=== PATIENT | female | born 1980 | race Caucasian/White ===

== ENCOUNTER → 2019-10-21 | Outpatient (CLI) | payer BC ==
[2019-10-21 16:21] VITALS: BP 120/84; PULSE 61; RESP 16; TEMP 97.6; BMI 33.0
--- NOTE | 2019-10-21 16:55 | P.HPBAR ---
Bariatric H&P - History & Physicial H&P Date: 10/21/19 History & Physicial: Visit/CC: ry 2013 Patient initial contact: Initial weight: 120.746 kg Initial weight in pounds: 266.20 Height: 5 ft 6 in Initial BMI: 43.0 Last weight: Current weight: 92.986 kg Current weight in pounds: 205.00 Current BMI: 33.0 [place] body weight (based on NIH guidelines): 58.967 kg Excess body weight loss: 44.9% The patient is a 38 year-old F who presents for Bariatric Assessment. She reports new constipation and gas bloat in July 2019. She had bypass May 2015. She reports anxiety. She reports concern for dumping. She had seen her PCP about the pain and was dismissed. She reports clumps to light colored soft stool then to food pieces. She can only eat tuna fish and apple. She reports chronic dehydration. She drinks over 100 oz daily of water. She has change in bowel habits. She has tried stool softeners. She reports dysphagia. PLAN: 1. Recommend EGD/Colonoscopy 2. Get bariatric labs 3. Esophagram for dysphagia. Past Medical History Past Medical History: Asthma, GERD/Reflux, Osteoarthritis (OA), Sleep Apnea/CPAP/BIPAP Additional Past Medical History / Comment(s): planter faciitis, ulcer, hiatal hernia, History of Any Multi-Drug Resistant Organisms: None Reported Past Surgical History: No Surgical Hx Reported Additional Past Surgical History / Comment(s): EGD Past Anesthesia/Blood Transfusion Reactions: Blood Transfusion Reaction, Motion Sickness Additional Past Anesthesia/Blood Transfusion Reaction / Comm: headache post op Smoking Status: Never smoker - Past Family History Mother Family Medical History: Hypertension, Thyroid Disorder Surgical - Exam Vital Signs Temp Pulse Resp BP 97.6 F 61 16 120/84 10/21/19 16:16 10/21/19 16:16 10/21/19 16:16 10/21/19 16:16 Bariatric Checklist Checklist: Plan: Checklist: EGD: 1. Hiatal hernia: 2. H. Pylori: HgbA1c: Vitamin D: Smoking: Never smoker Primary care physician referral: Dr. Rolanda Ovalle Psychiatry clearance: Cardiology clearance: Sleep study: Diet journal: VTE risk score: VTE risk level: Rehab needs at discharge:
[2019-10-21 18:05] LABS: HCT 39.6 % (34.0-46.0); HGB 13.1 gm/dL (11.4-16.0); MCH 31.6 pg (25.0-35.0); MCHC 33.1 g/dL (31.0-37.0); MCV 95.5 fL (80.0-100.0); Mean Platelet Volume 8.4; Platelet Count 234 k/uL (150-450); RBC 4.15 m/uL (3.80-5.40); RDW 13.6 % (11.5-15.5); WBC 6.8 k/uL (3.8-10.6)
[2019-10-21 18:11] LABS: INR 0.9 (<1.2); Partial Thromboplastin Time 23.1 sec (22.0-30.0); Prothrombin Time 9.6 sec (9.0-12.0)
[2019-10-22 00:41] LABS: Hemoglobin A1C 5.1 % (4.0-6.0)
[2019-10-22 02:04] LABS: % Iron Saturation 29.32 (12.00-45.00); African American GFR (CKD) 129.2 (60.0-200.0); Albumin 4.3 g/dL (3.80-4.90); Albumin/Globulin Ratio 2.26 (1.60-3.17); Anion Gap 11.4 mmol/L (4.00-12.00); BUN/Creat Ratio 14.29 Ratio (12.00-20.00); Calcium 9.1 mg/dL (8.7-10.3); Carbon Dioxide 24.6 mmol/L (21.6-31.8); Chol/HDL Ratio 2.37; Globulin 1.9 g/dL (1.6-3.3); LDL Cholesterol,Calculated 82.6 mg/dL (0.0-131.0); Magnesium 1.9 mg/dL (1.5-2.4); Non-African American GFR(CKD) 111.5 (60.0-200.0); Phosphorus 3.6 mg/dL (2.4-5.1); Total Bilirubin 0.5 mg/dL (0.3-1.2); Total Protein 6.2 g/dL (6.2-8.2); VLDL Calculation 14.4 mg/dL (5.00-40.00)
[2019-10-22 02:17] LABS: Ferritin 15.4 ng/mL (10.0-291.0); Folate, Serum 22.5 ng/mL
[2019-10-22 15:08] LABS: Zinc, Serum 71 ug/dL (60-130)
[2019-10-22 15:22] LABS: Vitamin A 45 ug/dL (38-106)
[2019-10-23 07:59] LABS: Vit B1(Thiamine) 53 ug/L (38-122)
== END | disposition home or self-care (01) ==
LOC: BARWHC3 15:44
PROVIDERS: ATTEND Surgery Plastic and Reconstructive Surgery
DX: Z48.815 Encounter for surgical aftercare following surgery on the digestive system (principal); E86.0 Dehydration; F41.9 Anxiety disorder, unspecified; R14.0 Abdominal distension (gaseous); R19.4 Change in bowel habit; R13.10 Dysphagia, unspecified; Z98.84 Bariatric surgery status
CPT/HCPCS: 80053; 80061; 82306; 82525; 82607; 82728; 82746; 83036; 83540; 83550; 83735; 83970; 84100; 84134; 84255; 84425; 84443; 84590; 84630; 85027; 85610; 85730; 99211

== ENCOUNTER → 2020-01-21 | Day surgery (SDC) | payer BC ==
[2020-01-18 14:42] VITALS: BMI 32.3
[~2020-01-21] MED LIST: LACTATED RINGERS 1,000 ML IV SCH; LIDOCAINE 1% INJ 10MG/ML (20 ML MDV) ONE; MIDAZOLAM 2 MG/2 ML VIAL ONE; PROPOFOL 10 MG/ML 20 ML VIAL IV ONE; fentaNYL (PF) 50 MCG/ML 2 ML AMP ONE
[2020-01-21 08:26] VITALS: RESP 16; TEMP 97.5
--- NOTE | 2020-01-21 09:04 | P.GSHP ---
History of Present Illness H&P Date: 01/21/20 CHIEF COMPLAINT: GERD and change in bowel habits HISTORY OF PRESENT ILLNESS: The patient is a 39-year-old female who presents with gastroesophageal reflux disease and change in bowel habits. Upper and lower endoscopy were offered for further evaluation and management. PAST MEDICAL HISTORY: Please see list. PAST SURGICAL HISTORY: Please see list. MEDICATIONS: Please see list. ALLERGIES: Please see list. SOCIAL HISTORY: No illicit drug use FAMILY HISTORY: No reports of Crohn disease or ulcerative colitis. REVIEW OF ORGAN SYSTEMS: CONSTITUTIONAL: No reports of fevers or chills. PHYSICAL EXAM: VITAL SIGNS: Stable GENERAL: Well-developed pleasant in no acute distress. HEENT: No scleral icterus. Extraocular movements grossly intact. Moist buccal mucosa. NECK: Supple without lymphadenopathy. CHEST: Unlabored respirations. Equal bilateral excursions. CARDIOVASCULAR: Regular rate and rhythm. Distal 2+ pulses. ABDOMEN: Soft, nondistended. MUSCULOSKELETAL: No clubbing, cyanosis, or edema. ASSESSMENT: 1. Gastroesophageal reflux disease 2. Change in bowel habits PLAN: 1. Recommend proceeding with an upper and lower endoscopy Past Medical History Past Medical History: Asthma, GERD/Reflux, Osteoarthritis (OA), Skin Disorder Additional Past Medical History / Comment(s): planter faciitis, ulcer, hx hiatal hernia, SOB and "heart rate goes up", "abdomen is swollen and I feel pressure and have diff having a bowel movement", recurrent yeast rash, urinary urgency History of Any Multi-Drug Resistant Organisms: None Reported Past Surgical History: Bariatric Surgery Additional Past Surgical History / Comment(s): EGD, surgery to repair hiatal hernia and aretha-en-y Past Anesthesia/Blood Transfusion Reactions: Previous Problems w/ Anesthesia, Motion Sickness Additional Past Anesthesia/Blood Transfusion Reaction / Comment(s): headache post op, 'I have panic attacks before and after surgery" Smoking Status: Never smoker - Past Family History Mother Family Medical History: No Reported History Medications and Allergies Home Medications Medication Instructions Recorded Confirmed Type Multivitamins, Thera [Multivitamin] 1 tab PO DAILY 06/23/15 01/21/20 History Cholecalciferol (Vitamin D3) 50 mcg PO BID 01/18/20 01/21/20 History [Vitamin D3] Famotidine [Pepcid] 20 mg PO BID 06/08/20 06/11/20 History Allergies Allergy/AdvReac Type Severity Reaction Status Date / Time azithromycin Allergy "FELT LIKE Verified 01/21/20 08:12 [From Zithromax Z-Martinez] MY BODY WAS ALL BRUISED AND SENSITIVE" Surgical - Exam Vital Signs Temp Pulse Resp BP Pulse Ox 97.5 F L 72 16 132/78 98 01/21/20 08:24 01/21/20 08:24 01/21/20 08:24 01/21/20 08:24 01/21/20 08:24
--- NOTE | 2020-01-21 09:10 | P.PCN ---
Date of Procedure: 01/21/20 Description of Procedure: PREOPERATIVE DIAGNOSIS: Gastroesophageal reflux disease Dysphagia. Nausea with vomiting. POSTOPERATIVE DIAGNOSIS: Dysphagia. Nausea with vomiting. Gastritis with recent bleeding Gastrojejunal stricture with chronic ulcer without perforation OPERATION: Esophagogastrojejunoscopy with balloon dilatation from 15 to 20 mm. Esophagogastroduodenoscopy with cold biopsy forceps gastric pouch SURGEON: Carlita De La O MD ANESTHESIA: MAC. INDICATIONS: The patient is a 39-year-old female who presents with a history of dysphagia, gastroesophageal reflux disease including nausea and vomiting. Benefits and risks of the procedure were described. Informed consent was obtained. DESCRIPTION: The patient was brought into the endoscopy suite and laid in the left lateral decubitus position. After a timeout was confirmed, the procedure was initiated. An Olympus gastroscope was passed along the posterior oropharynx down to the distal esophagus where the squamocolumnar junction was unremarkable. The gastric pouch was entered. A gastrojejunal stricture of 15 mm was found as the adult gastroscope was 9.5 mm in size. A TabSprint balloon dilator was placed through the scope. Final insufflation up to 20 mm was performed with a total of 2 minutes. The scope was advanced up to 60 cm from the incisors into the Anna limb. The mucosa of the gastrojejunal anastomosis was intact. However chronic gastrojejunal marginal ulcer was encountered along the jejunal side of the anastomosis, 3 mm in size. Additionally, biopsies were obtained of the gastric pouch using cold forceps. No full-thickness injury was encountered. The GI tract was desufflated. The patient tolerated the procedure well. FINDINGS: Squamocolumnar junction unremarkable at 35 cm. Stricture of approximately 15 mm encountered. Chronic gastrojejunal ulceration encountered along jejunal side 3 mm Successful balloon dilatation to 20 mm. Diaphragmatic hiatus at 40 cm. Gastric pouch 5 cm. Biopsies obtained of gastric pouch. RECOMMENDATIONS: Start omeprazole of at least 4 weeks.
--- NOTE | 2020-01-21 09:22 | P.PCN ---
Date of Procedure: 01/21/20 Description of Procedure: PREOPERATIVE DIAGNOSIS: Change in bowel habits POSTOPERATIVE DIAGNOSIS: Tubular adenoma ascending colon Tubular adenoma at appendiceal orifice OPERATION: Colonoscopy to the ileocecal valve and appendiceal orifice. Colonoscopy with multiple hot snare polypectomies SURGEON: Carlita De La O MD. ANESTHESIA: MAC. INDICATIONS: The patient is an 39-year-old female who presents with change in bowel habits. Colonoscopy is offered for diagnostic evaluation. Benefits and risks were described and informed consent was obtained. DESCRIPTION OF PROCEDURE: The patient had undergone Suprep. She had been brought into the operating room and laid in the left lateral decubitus position. After adequate intravenous sedation, the rectum was examined with 2% lidocaine jelly. No external hemorrhoids were encountered. The rectal tone was within normal limits. No lesions were palpated in the rectal vault. The colon was highly tortuous including a very high splenic flexure and hepatic flexure as well as redundant sigmoid colon. Abdominal pressure was used to advance the scope. An Olympus colonoscope was advanced until the ileocecal valve and appendiceal orifice were clearly viewed. The prep was excellent. No sigmoid diverticulosis was encountered. Multiple colonic polyps were found and snare polypectomy. No evidence of focal colitis was found. Retroflexion of the scope demonstrated grade 1 internal hemorrhoids without active bleeding or inflammation. The colon was desufflated. The patient had tolerated the procedure well. Withdrawal time was over 6 minutes. FINDINGS: Aronchick preparation quality scale 1 (1-5) Internal hemorrhoids, grade 1 No external hemorrhoids No arteriovenous malformations. No sigmoid diverticulosis Highly tortuous colon including a very high splenic flexure, hepatic flexure as well as redundant sigmoid colon. Removal of 2 polyps: - Snare polypectomy at ascending colon, 7 mm tubulovillous adenoma polyp. - Snare polypectomy at appendiceal orifice, 6 mm flat villous adenoma polyp. No focal colitis. RECOMMENDATIONS: Repeat colonoscopy in 3 years, 2022 Plan - Discharge Summary New Discharge Prescriptions: New Omeprazole [PriLOSEC] 40 mg PO DAILY #30 cap Continue Multivitamins, Thera [Multivitamin (formulary)] 1 tab PO DAILY Cholecalciferol (Vitamin D3) [Vitamin D3] 50 mcg PO BID Discontinued Famotidine [Pepcid] 20 mg PO BID Discharge Medication List Multivitamins, Thera [Multivitamin (formulary)] 1 tab PO DAILY 06/23/15 [History] Cholecalciferol (Vitamin D3) [Vitamin D3] 50 mcg PO BID 01/18/20 [History] Omeprazole [PriLOSEC] 40 mg PO DAILY #30 cap 01/21/20 [Rx] [facility]Ref[place] [place] [facility] [place] [facility] Patient Instructions/Handouts: *[facility] - (Anesthesia) Endoscopy Discharge Instructions, Gastritis (DC), Colorectal Polyps (DC), Colonoscopy (DC), Upper Endoscopy (DC), Esophageal Dilation (DC) Discharge Disposition: HOME SELF-CARE
[2020-01-21 09:35] VITALS: PULSE 73
[2020-01-21 09:47] VITALS: BP 123/88
== END | disposition home or self-care (01) ==
LOC: ORWHC2ENDO 07:57
PROVIDERS: ATTEND Surgery Plastic and Reconstructive Surgery
DX: K95.89 Other complications of other bariatric procedure (principal); K56.699 Other intestinal obstruction unspecified as to partial versus complete obstruction; K28.4 Chronic or unspecified gastrojejunal ulcer with hemorrhage; K29.51 Unspecified chronic gastritis with bleeding; D12.2 Benign neoplasm of ascending colon; D12.1 Benign neoplasm of appendix; Q43.8 Other specified congenital malformations of intestine; K64.0 First degree hemorrhoids; J45.909 Unspecified asthma, uncomplicated; K21.9 Gastro-esophageal reflux disease without esophagitis; M19.90 Unspecified osteoarthritis, unspecified site; F41.9 Anxiety disorder, unspecified; K44.9 Diaphragmatic hernia without obstruction or gangrene; K59.00 Constipation, unspecified; E66.9 Obesity, unspecified; Z68.32 Body mass index [BMI] 32.0-32.9, adult; Z87.2 Personal history of diseases of the skin and subcutaneous tissue; Z87.39 Personal history of other diseases of the musculoskeletal system and connective tissue; Z87.898 Personal history of other specified conditions; Z87.19 Personal history of other diseases of the digestive system; Z87.448 Personal history of other diseases of urinary system; Z98.890 Other specified postprocedural states; Z91.89 Other specified personal risk factors, not elsewhere classified; Z79.899 Other long term (current) drug therapy; Z88.1 Allergy status to other antibiotic agents
CPT/HCPCS: 81025; 88305; 45385; 43239; 43245; J2250; J2001; J3010; J2704; C1726

== ENCOUNTER → 2020-03-02 | Outpatient (CLI) | payer BC ==
[2020-03-02 14:47] VITALS: BP 139/88; PULSE 80; RESP 16; TEMP 98.1; BMI 32.8
--- NOTE | 2020-03-02 15:04 | P.PN ---
Subjective Progress Note Date: 03/02/20 DATE OF SERVICE: 03/02/2020 CHIEF COMPLAINT: Status post gastric bypass HISTORY OF PRESENT ILLNESS: Chiquita Kennedy is a 39-year-old female who is status post Anna-en-Y gastric bypass on May 24, 2015. She is 5 years out. She reports new right upper quadrant pain. She reports change in bowel habits. She completed a lower endoscopy. She has occasional epigastric pain exacerbated with fatty foods. Her symptoms are ongoing for over 2 weeks. Her highest weight was 266 pounds for her 5-foot, 5-1/2-inch frame. [place] body weight is 149 pound. Body mass index was 43.7. Today she comes in weighing 203 pounds from 204 pounds, 1 months ago. Her lifetime weight loss is 63 pounds. Her percent excess weight loss is 54 %, lifetime. Her body mass index is now down to 33.3. PAST MEDICAL HISTORY: 1. Morbid obesity due to excess calories, BMI 43.7 2. Gastroesophageal reflux disease. 3. Osteoarthritis of the bilateral knees secondary to obesity. 4. Plantar fasciitis. 5. Osteoarthritis of the mid to lower back secondary to obesity. PAST SURGICAL HISTORY: 1. Gastric bypass. 2. Upper endoscopy. MEDICATIONS: Home Medications Medication Instructions Recorded Confirmed Calcium Citrate 250 mg PO 06/23/15 08/25/15 Cholecalciferol [Vitamin D3] 400 unit PO DAILY@1200 06/23/15 08/25/15 HYDROcodone/APAP 5-325MG [[place] 5] 1 - 2 each PO DAILY PRN 06/23/15 08/25/15 Iron 18 mg PO DAILY 06/23/15 08/25/15 Multivitamins, Thera [Multivitamin] 1 tab PO DAILY 06/23/15 08/25/15 Previous Rx's Medication Instructions Recorded Omeprazole [PriLOSEC] 40 mg PO AC-BRKFST #90 cap 03/18/15 Ergocalciferol [Vitamin D2 50,000 unit PO Q7D #12 cap 06/23/15 (DRISDOL)] ALLERGIES: Allergies Allergy/AdvReac Type Severity Reaction Status Date / Time azithromycin Allergy "FELT LIKE Verified 08/25/15 09:23 [From Zithromax Z-Martinez] MY BODY WAS ALL BRUISED AND SENSITIVE" SOCIAL HISTORY: Denies any active tobacco use. History of alcohol use. FAMILY HISTORY: Denies any esophageal or stomach cancer. She has a family history of hypertension including thyroid disorder. Separately she reports a family history of gallbladder disease. Mother with morbid obesity who had a sleeve gastrectomy. REVIEW OF SYSTEMS : CONSTITUTIONAL: Her highest weight was 266 pounds for her 5-foot, 5-1/2-inch frame. [place] body weight is 149 pound. Body mass index was 43.7. GASTROINTESTINAL: No reports of dumping syndrome or GERD. RESPIRATORY: No reports of obstructive sleep apnea. MUSCULOSKELETAL: She reports feet and finger joint pain. HEENT: Denies any troubles with vision or hearing. ENDOCRINE: No reports of diabetes or thyroid disorders. CARDIOVASCULAR: Denies any palpitations or hypertension. NEURO: Denies any headache or seizure disorders. PSYCH: Denies any depression or suicidal ideation. Has anxiety HEMATOLOGIC: Denies any easy bruising or bleeding or a personal history of deep venous thromboembolic event. SKIN: No skin cancer. No rash. PHYSICAL EXAM: VITAL SIGNS: 5 feet 5-1/2 inches, 203 pounds, Body mass index of 33.3 Vital Signs Temp 98.1 F 03/02/20 14:44 Pulse 80 03/02/20 14:44 Resp 16 03/02/20 14:44 BP 139/88 03/02/20 14:44 Pulse Ox GENERAL: Well-developed, pleasant female in no acute distress. ABDOMEN: Soft, nontender, nondistended. No palpable incisional hernias. MUSCULOSKELETAL: No clubbing, cyanosis, or edema. HEENT: No sclerae icterus. Extraocular movements grossly intact. Moist buccal mucosa. NECK: Supple without lymphadenopathy. CHEST: Nonlabored respirations with equal bilateral excursions. CARDIOVASCULAR: Regular rate and rhythm. ABDOMEN: Soft, nontender, nondistended. PSYCH: Appropriate affect. Alert and oriented to person, place and time. SKIN: Well perfused, good skin turgor NEURO: Cranial nerve II to XII grossly intact. ASSESSMENT: 1. Morbid obesity due to excess calories with BMI 43.6, initial. 2. Status post Anna-en-Y gastric bypass. 3. Osteoarthritis of the bilateral knees 4. Osteoarthritis of the lower back 5. Obstructive sleep apnea. 6. Dietary surveillance and counseling. 7. Plantar fasciitis. 8. Change in bowel habits 9. Dysphagia 10. Constipation 11. Anxiety 12. Colon adenoma, new 13. Gastrojejunal ulcer, new 14. Vitamin D deficiency, new 15. Secondary hyperparathyroidism, new 16. Right upper quadrant pain. PLAN: 1. She reports new right upper quadrant pain. Recommend ultrasound of gallbladder and HIDA of the gallbladder 2. Recommend food diary journal for food intolerance. Objective - Vital Signs Vital signs: Vital Signs Temp 98.1 F 03/02/20 14:44 Pulse 80 03/02/20 14:44 Resp 16 03/02/20 14:44 BP 139/88 03/02/20 14:44 Pulse Ox Intake & Output 03/01/20 03/02/20 03/02/20 18:59 06:59 18:59 Weight 92.079 kg
== END | disposition home or self-care (01) ==
LOC: BARWHC3 14:31
PROVIDERS: ATTEND Surgery Plastic and Reconstructive Surgery
DX: R10.11 Right upper quadrant pain (principal); R19.4 Change in bowel habit; R10.13 Epigastric pain; Z90.49 Acquired absence of other specified parts of digestive tract
CPT/HCPCS: 99211

== ENCOUNTER → 2020-03-07 | Outpatient (CLI) | payer BC ==
--- NOTE | 2020-03-07 08:41 | US ---
EXAMINATION TYPE: US gallbladder DATE OF EXAM: 03/07/2020 COMPARISON: NONE CLINICAL HISTORY: R10.11 right upper quad pain. RUQ pain, Nausea EXAM MEASUREMENTS: Liver Length: 18.4 cm Gallbladder Wall: 0.2 cm CBD: 0.2 cm Right Kidney: 12.6 x 5.9 x 5.3 cm Pancreas: wnl Liver: Appears enlarged. Gallbladder: wnl Evidence for sonographic Quigley's sign: neg CBD: wnl Right Kidney: No hydronephrosis or masses seen IMPRESSION: 1. Hepatomegaly.
== END | disposition home or self-care (01) ==
LOC: RADUSWWP 07:32
PROVIDERS: ATTEND Surgery Plastic and Reconstructive Surgery
DX: R16.0 Hepatomegaly, not elsewhere classified (principal)
CPT/HCPCS: 76705

== ENCOUNTER → 2020-03-11 | Outpatient (CLI) | payer BC ==
--- NOTE | 2020-03-14 06:27 | NM ---
EXAMINATION TYPE: NM hepatobiliary w EF DATE OF EXAM: 03/11/2020 COMPARISON: Gallbladder ultrasound March 07, 2020. HISTORY: Right upper quadrant pain per order. Symptoms of diminished appetite heartburn, reflux, naus ea and vomiting per patient. TECHNIQUE: After the intravenous administration of 5 mCi Tc 99m Mebrofenin hepatobiliary scintigraphy is performed. Immediate images post injection. FINDINGS: There is overall heterogeneous 4 accumulation of tracer by the liver. The gallbladder is visualized within 15 minutes. The small bowel activity is noted within 30 minutes. At one hour 8 ounces of ora l ensure plus is given to mimic CCK and gallbladder ejection fraction is calculated at 73 %, in the n ormal range. Therefore there is no scintigraphic evidence of cystic or common bile duct obstruction to suggest acute cholecystitis or gallbladder dyskinesia. IMPRESSION: Exam is within normal limits.
== END | disposition home or self-care (01) ==
LOC: RADNMMAIN 15:28
PROVIDERS: ATTEND Surgery Plastic and Reconstructive Surgery
DX: R10.11 Right upper quadrant pain (principal)
CPT/HCPCS: 78226; A9537

== ENCOUNTER → 2020-04-06 | Outpatient (CLI) | payer BC ==
[2020-04-06 14:21] LABS: Basophils % (A) 1 %; Eosinophils # (A) 0.1 k/uL (0-0.7); Eosinophils % (A) 2 %; HCT 37.6 % (34.0-46.0); Lymphocytes % (A) 32 %; MCV 93.7 fL (80.0-100.0); Mean Platelet Volume 7.7; Monocytes # (A) 0.4 k/uL (0-1.0); Monocytes % (A) 6 %; Neutrophils # (A) 3.6 k/uL (1.3-7.7); Neutrophils % (A) 57 %; Platelet Count 243 k/uL (150-450); RBC 4.01 m/uL (3.80-5.40); WBC 6.3 k/uL (3.8-10.6)
[2020-04-06 14:53] LABS: ALT 19 U/L (4-34); AST 36 U/L (14-36); African American GFR (CKD) >90 (>60 ml/min/1.73 sqM); Albumin 3.9 g/dL (3.5-5.0); Alkaline Phosphatase 50 U/L (38-126); Anion Gap 6 mmol/L; Blood Urea Nitrogen 13 mg/dL (7-17); Calcium 9.2 mg/dL (8.4-10.2); Carbon Dioxide 28 mmol/L (22-30); Chloride 101 mmol/L (98-107); Glucose 90 mg/dL (74-99); Non-African American GFR(CKD) >90 (>60 ml/min/1.73 sqM); Potassium 4.4 mmol/L (3.5-5.1); Sodium 135 mmol/L (137-145); Total Bilirubin 0.3 mg/dL (0.2-1.3); Total Protein 6.1 g/dL (6.3-8.2)
== END | disposition home or self-care (01) ==
LOC: LABPAT 13:04
PROVIDERS: ATTEND Surgery Plastic and Reconstructive Surgery
DX: Z01.818 Encounter for other preprocedural examination (principal)
CPT/HCPCS: 80053; 85025; 93005

== ENCOUNTER 2020-04-14 10:25 | Day surgery (SDC) | payer BC ==
[2020-04-11 12:39] VITALS: BMI 32.8
[~2020-04-14 10:25] MED LIST changes: +DEXAMETHASONE SOD PHOSPHATE 10 MG/ML 1 ML VIAL IV ONE; +HYDROmorphone 0.5 MG/0.5 ML SYRINGE IVP PRN; -LIDOCAINE 1% INJ 10MG/ML (20 ML MDV) ONE; -MIDAZOLAM 2 MG/2 ML VIAL ONE; +ONDANSETRON 4 MG/2 ML VIAL IVP ONE; -PROPOFOL 10 MG/ML 20 ML VIAL IV ONE; -fentaNYL (PF) 50 MCG/ML 2 ML AMP ONE
--- NOTE | 2020-04-14 11:05 | P.GSHP ---
History of Present Illness H&P Date: 04/14/20 CHIEF COMPLAINT: History of intra-abdominal adhesions HISTORY OF PRESENT ILLNESS: The patient is a 39-year-old female who presents with history of intra-abdominal adhesions including fatty food intolerance, right upper quadrant abdominal pain. She now presents for diagnostic laparoscopy including lysis of adhesions and possible cholecystectomy PAST MEDICAL HISTORY: Please see list. PAST SURGICAL HISTORY: Please see list. MEDICATIONS: Please see list. ALLERGIES: Please see list. SOCIAL HISTORY: No illicit drug use FAMILY HISTORY: No reports of Crohn disease or ulcerative colitis. REVIEW OF ORGAN SYSTEMS: CONSTITUTIONAL: No reports of fevers or chills. PHYSICAL EXAM: VITAL SIGNS: Stable GENERAL: Well-developed pleasant and in no acute distress. HEENT: No scleral icterus. Extraocular movements grossly intact. Moist buccal mucosa. NECK: Supple without lymphadenopathy. CHEST: Unlabored respirations. Equal bilateral excursions. CARDIOVASCULAR: Regular rate and rhythm. Distal 2+ pulses. ABDOMEN: Soft, tender along right upper quadrant MUSCULOSKELETAL: No clubbing, cyanosis, or edema. ASSESSMENT: 1. Right upper quadrant abdominal pain 2. History of abdominal surgeries. 3. Intra-abdominal adhesions. 4. Chronic cholecystitis PLAN: 1. Robotic lysis of adhesions were described including possibility of cholecystectomy. Risk of injury to the intestine, need for further surgery, and open technique. 2. DVT prophylaxis. 3. Antibiotic prophylaxis. Past Medical History Past Medical History: Asthma, GERD/Reflux, Osteoarthritis (OA), Skin Disorder Additional Past Medical History / Comment(s): planter fasciitis, ulcer, hx hiatal hernia, SOB and "heart rate goes up", "abdomen is swollen and I feel pressure and have diff having a bowel movement", recurrent yeast rash back of legs & buttocks, urinary urgency, current thrush History of Any Multi-Drug Resistant Organisms: None Reported Past Surgical History: Bariatric Surgery Additional Past Surgical History / Comment(s): EGD, surgery to repair hiatal hernia and aretha-en-y, colonoscopy Past Anesthesia/Blood Transfusion Reactions: Previous Problems w/ Anesthesia, Motion Sickness Additional Past Anesthesia/Blood Transfusion Reaction / Comment(s): headache post op, 'I have panic attacks before and after surgery" Smoking Status: Former smoker - Past Family History Mother Family Medical History: No Reported History Medications and Allergies Home Medications Medication Instructions Recorded Confirmed Type Omeprazole [PriLOSEC] 40 mg PO DAILY #30 cap 01/21/20 04/11/20 Rx Nystatin 100,000 Unit/ml Susp 4 ml PO QID 04/11/20 04/11/20 History [Mycostatin Oral Susp] Allergies Allergy/AdvReac Type Severity Reaction Status Date / Time azithromycin Allergy "FELT LIKE Verified 04/14/20 11:03 [From Zithromax Z-Martinez] MY BODY WAS ALL BRUISED AND SENSITIVE"
[2020-04-14] MEDS ORDERED: HEPARIN SODIUM,PORCINE 5,000 UNIT/ML 1 ML VIAL SQ STA (11:06)
[2020-04-14] MEDS ORDERED: SCOPOLAMINE 1.5MG/72HR PATCH TRANSDERM STA (11:06)
[2020-04-14] MEDS ORDERED: ACETAMINOPHEN TAB 500 MG TAB PO STA (11:06)
[2020-04-14] MEDS ORDERED: GABAPENTIN 300 MG CAP PO STA (11:06)
[2020-04-14] MEDS ORDERED: INDOCYANINE GREEN 25 MG VIAL IV STA (11:07)
--- NOTE | 2020-04-14 11:08 | P.HPADDEND ---
H&P Addendum H&P Addendum Date: 04/14/20 Patient presents today for diagnostic laparoscopy lysis of adhesions. She reports worsening symptoms especially of the right upper quadrant following eating fatty or greasy foods and has history of chronic cholecystitis. Robotic cholecystectomy reviewed with benefits and risks
[2020-04-14] MEDS ORDERED: LIDOCAINE 1% (10MG/ML) FOR IV START INTRADERMA ONE (11:39)
[2020-04-14] MEDS ORDERED: MIDAZOLAM 2 MG/2 ML VIAL IVP ONE (12:19)
[2020-04-14] MEDS ORDERED: HYDROmorphone (PF) 1 MG/ML ONE (12:44)
[2020-04-14] MEDS ORDERED: NEOSTIGMINE 1 MG/ML 10 ML VIAL ONE (12:44)
[2020-04-14] MEDS ORDERED: ROCURONIUM 10 MG/ML (5 ML VIAL) IV ONE (12:44)
[2020-04-14] MEDS ORDERED: KETOROLAC 15 MG/ML 1 ML VIAL ONE (12:44)
[2020-04-14] MEDS ORDERED: diphenhydrAMINE 50 MG/ML 1 ML VIAL ONE (12:44)
[2020-04-14] MEDS ORDERED: fentaNYL (PF) 50 MCG/ML 2 ML AMP ONE (12:44)
[2020-04-14] MEDS ORDERED: PROPOFOL 10 MG/ML 20 ML VIAL IV ONE (12:44)
[2020-04-14] MEDS ORDERED: SUCCINYLCHOLINE CHLORIDE 100 MG/5 ML SYR IV ONE (12:44)
[2020-04-14] MEDS ORDERED: LIDOCAINE 1% INJ 10MG/ML (20 ML MDV) ONE (12:44)
[2020-04-14] MEDS ORDERED: DEXAMETHASONE SOD PHOSPHATE 10 MG/ML 1 ML VIAL ONE (12:44)
[2020-04-14] MEDS ORDERED: GLYCOPYRROLATE 0.2 MG/ML 2 ML VIAL ONE (12:44)
[2020-04-14] MEDS ORDERED: BUPIVACAINE (PF) 0.25% 30 ML VIAL SQ ONE (13:20)
[2020-04-14 14:54] VITALS: TEMP 99
[2020-04-14 15:02] VITALS: RESP 16
[2020-04-14] MEDS ORDERED: KETOROLAC 15 MG/ML 1 ML VIAL IVP PRN (15:02)
[2020-04-14] MEDS ORDERED: diphenhydrAMINE 50 MG/ML 1 ML VIAL IVP STA (15:02)
[2020-04-14] MEDS ORDERED: DEXAMETHASONE SOD PHOSPHATE 10 MG/ML 1 ML VIAL IV STA (15:02)
--- NOTE | 2020-04-14 15:21 | P.OP ---
Date of Procedure: 04/14/20 Description of Procedure: SURGEON: SAUNDRA SMITH MD PREOPERATIVE DIAGNOSES: 1. Peritoneal adhesions with abdominal pain 2. Chronic cholecystitis 3. Right upper quadrant abdominal pain 4. Change in bowel habits 5. Generalized anxiety disorder 6. Status post gastric bypass 7. Obesity due to excess calories, BMI 33.4 POSTOPERATIVE DIAGNOSES: 1. Peritoneal adhesions with abdominal pain 2. Chronic cholecystitis 3. Right upper quadrant abdominal pain 4. Change in bowel habits 5. Generalized anxiety disorder 6. Status post gastric bypass 7. Obesity due to excess calories, BMI 33.4 8. Severe hepatomegaly with fatty liver disease OPERATION: Robotic-assisted da Homer Xi laparoscopic lysis of adhesions Robotic-assisted da Homer Xi laparoscopic cholecystectomy, multiport with FIREFLY ESTIMATED BLOOD LOSS: 5 mL. SPECIMENS REMOVED: Gallbladder. COMPLICATIONS: None. OPERATIVE FINDINGS: 1. Severe pad amenably due to fatty liver disease with intrahepatic gallbladder adding complexity to case 2. No evidence of bowel obstruction identified 3. No incisional hernias found 4. Peritoneal adhesions along the gallbladder with lysis of adhesions performed INDICATIONS: The patient is a 39-year-old female who presents with right upper quadrant including generalized abdominal pain following eating fatty foods. Clinical picture consistent with chronic cholecystitis. Robotic assisted laparoscopic approach was described. Benefits and risks of the procedure inc luding but not limited to bleeding, infection, injury to the biliary tree was described. Informed consent was obtained. DESCRIPTION OF PROCEDURE: Patient was brought to the operating room, placed in supine position. After general induction, the abdomen had been prepped and draped in standard sterile fashion. The robotic da Homer XI system was primed. After a timeout protocol was performed, the patient had been prepped and draped in standard sterile fashion. The patient was injected with indocyanine green. A 5 mm 0 degrees laparoscopic trocar entry was performed along the left upper quadrant. The abdomen insufflated to 15 mmHg pressure which was tolerated well. Diagnostic laparoscopy demonstrated no injury to bowel viscera or mesentery. The liver surface was unremarkable. Next, two 8 mm robotic ports were placed along the right upper abdomen. The camera 8-mm port was maintained along the epigastrium. Another 8 mm port was placed along the left upper abdominal wall after exchanging the 5 mm port. Please note that the ports were placed at least 10 to 15 cm away from the target anatomy of the gallbladder. The robot was docked along the left lateral abdomen. The patient was repositioned in reverse Trendelenburg position. Using a grasper for arm 3, a grasper for arm 4, including hook cautery for arm 1, the robotic system was docked and primed as described. Instruments were interchanged by the data control assistant including hook cautery, Bovie cautery and clip appliers. I had sat at the console. Adhesions were identified along with the body of the gallbladder including infundibulum. The gallbladder was intrahepatic secondary to severe fatty liver disease with hepatomegaly adding complexity to her case. Additional time of dissection of 30 minutes performed secondary to hepatomegaly. Secondary to the severity of hepatomegaly, a dome down technique was performed with release of the gallbladder fundus body and infundibulum from the hepatic fossa. The gallbladder fundus was retracted over the dome of the liver. Attention was brought to the infundibulum including cystic lymph node. Dissection was performed over the cystic lymph node at the infundibulum using hook cautery. The infundibulum was retracted laterally to expose the cystic duct away from the common bile duct. The cystic duct including the cystic artery were dissected free from its surrounding tissue. FIREFLY was used to identify the cystic artery and cystic structures. A critical view of safety was obtained. Large PLASTIC clips were used throughout the entire case. Using a clip surety bond agent, 2 clips were placed at the junction of the infundibulum and cystic duct. The cystic duct was divided between clips. Next, the cystic artery was similarly clipped and cauterized. Electro-Bovie cautery was used to remove the gallbladder from the hepatic fossa. Hemostasis was checked and found to be adequate. The robot was undocked. I re-scrubbed into the case. Using a 10 mm Endo Catch bag via the left upper quadrant incision, the specimen was removed from the abdominal cavity. All pneumoperitoneum instruments were evacuated from the abdominal cavity. The incisions were reapproximated using 4-0 Monocryl in an interrupted subcuticular fashion. Fascial defects were less than 8 mm in size. Please note along the trocar sites, local anesthetic was placed as a field block prior to insertion of all instruments. Liquid glue was applied to the skin. At the end of the procedure needle, sponge, and instrument count had been verified correct by the certified surgical tech/first assistant. The patient was transferred to postanesthesia care unit in stable condition. Plan - Discharge Summary Discharge Rx Participant: No New Discharge Prescriptions: New HYDROcodone/APAP 5-325MG [Solomon 5-325] 1 tab PO Q6HR PRN 3 Days #10 tab PRN Reason: Pain Acetaminophen Tab [Tylenol Tab] 1,000 mg PO Q6HR PRN #30 tablet No Action Omeprazole [PriLOSEC] 40 mg PO DAILY #30 cap Nystatin 100,000 Unit/ml Susp [Mycostatin Oral Susp] 4 ml PO QID Discharge Medication List Omeprazole [PriLOSEC] 40 mg PO DAILY #30 cap 01/21/20 [Rx] Nystatin 100,000 Unit/ml Susp [Mycostatin Oral Susp] 4 ml PO QID 04/11/20 [History] Acetaminophen Tab [Tylenol Tab] 1,000 mg PO Q6HR PRN #30 tablet 04/14/20 [Rx] HYDROcodone/APAP 5-325MG [Solomon 5-325] 1 tab PO Q6HR PRN 3 Days #10 tab 04/14/20 [Rx] Follow up [facility]ment(s[facility] [facility] [place] - [place]20 Patient Instructions/Handouts: Laparoscopic Cholecystectomy (DC), Low Fat Diet (GEN) Activity/Diet/Wound Care/Special Instructions: No lifting over 10 pounds in 2 weeks until Apr 28December shower. No bath tub soaks for two weeks until Apr 28 Diet as tolerated. No driving while on narcotics. Use Tylenol scheduled for the next 24-48 hours for best pain relief. Use ice along incisions for the today to prevent swelling. For today, avoid high fat foods Discharge Disposition: HOME SELF-CARE
--- NOTE | 2020-04-14 15:23 | P.PN ---
Progress Note - Text Progress Note Date: 04/14/20 Family updated over the phone regarding care. All questions of her were addressed.
[2020-04-14 15:37] VITALS: PULSE 75
[2020-04-14] MEDS ORDERED: HYDROcodone/APAP 5-325MG 1 EACH TAB PO ONE ×2 (15:40→15:46)
[2020-04-14] MEDS ORDERED: HYDROcodone/APAP 5-325MG 1 EACH TAB ONE (15:44)
[2020-04-14 15:53] VITALS: BP 126/65
== END 2020-04-14 16:16 | disposition home or self-care (01) ==
LOC: OR 10:25
PROVIDERS: ATTEND Surgery Plastic and Reconstructive Surgery
DX: K81.1 Chronic cholecystitis (principal); K66.0 Peritoneal adhesions (postprocedural) (postinfection); F41.1 Generalized anxiety disorder; Z98.84 Bariatric surgery status; E66.09 Other obesity due to excess calories; Z68.33 Body mass index [BMI] 33.0-33.9, adult; K76.0 Fatty (change of) liver, not elsewhere classified; J45.909 Unspecified asthma, uncomplicated; K21.9 Gastro-esophageal reflux disease without esophagitis; M19.90 Unspecified osteoarthritis, unspecified site; B37.2 Candidiasis of skin and nail; B37.9 Candidiasis, unspecified; M72.2 Plantar fascial fibromatosis; R39.15 Urgency of urination; Z98.890 Other specified postprocedural states; Z87.891 Personal history of nicotine dependence; Z88.1 Allergy status to other antibiotic agents; Z79.899 Other long term (current) drug therapy
CPT/HCPCS: 47562; S2900; 81025; 88304

== ENCOUNTER 2020-06-09 09:26 | Day surgery (SDC) | payer BC ==
[2020-06-07 10:59] VITALS: BMI 33.0
--- NOTE | 2020-06-09 07:08 | P.GSHP ---
History of Present Illness H&P Date: 06/09/20 CHIEF COMPLAINT: GERD HISTORY OF PRESENT ILLNESS: The patient is a 39-year-old female who presents reports gastroesophageal reflux disease. Upper endoscopy was offered for further evaluation and management. PAST MEDICAL HISTORY: Please see list. PAST SURGICAL HISTORY: Please see list. MEDICATIONS: Please see list. ALLERGIES: Please see list. SOCIAL HISTORY: No illicit drug use FAMILY HISTORY: No reports of Crohn disease or ulcerative colitis. REVIEW OF ORGAN SYSTEMS: CONSTITUTIONAL: No reports of fevers or chills. GI: Denies any blood in stools or constipation. PHYSICAL EXAM: VITAL SIGNS: Stable GENERAL: Well-developed and pleasant in no acute distress. HEENT: No scleral icterus. Extraocular movements grossly intact. Moist buccal mucosa. NECK: Supple without lymphadenopathy. CHEST: Unlabored respirations. Equal bilateral excursions. CARDIOVASCULAR: Regular rate and rhythm. Distal 2+ pulses. ABDOMEN: Soft, nondistended. MUSCULOSKELETAL: No clubbing, cyanosis, or edema. ASSESSMENT: 1. Gastroesophageal reflux disease PLAN: 1. Recommend proceeding with an upper endoscopy Past Medical History Past Medical History: Asthma, GERD/Reflux, Osteoarthritis (OA) Additional Past Medical History / Comment(s): planter fasciitis, ulcer, hx hiatal hernia, SOB and "heart rate goes up", "abdomen is swollen and I feel pressure and have diff having a bowel movement", urinary urgency, current thrush History of Any Multi-Drug Resistant Organisms: None Reported Past Surgical History: Bariatric Surgery, Cholecystectomy, Hernia Repair Additional Past Surgical History / Comment(s): EGD, surgery to repair hiatal hernia and aretha-en-y, colonoscopy. LYSIS OF ADHESIONS/LAP JACQUELINE 04/14/20 Past Anesthesia/Blood Transfusion Reactions: Previous Problems w/ Anesthesia, Motion Sickness Additional Past Anesthesia/Blood Transfusion Reaction / Comment(s): headache post op, 'I have panic attacks before and after surgery" Smoking Status: Former smoker - Past Family History Mother Family Medical History: No Reported History Medications and Allergies Home Medications Medication Instructions Recorded Confirmed Type Omeprazole [PriLOSEC] 40 mg PO DAILY #30 cap 01/21/20 06/07/20 Rx Nystatin 100,000 Unit/ml Susp 4 ml PO QID 04/11/20 06/07/20 History [Mycostatin Oral Susp] Acetaminophen Tab [Tylenol Tab] 1,000 mg PO Q6HR PRN #30 tablet 04/14/20 06/07/20 Rx Allergies Allergy/AdvReac Type Severity Reaction Status Date / Time azithromycin Allergy "FELT LIKE Verified 06/07/20 10:51 [From Zithromax Z-Martinez] MY BODY WAS ALL BRUISED AND SENSITIVE"
[~2020-06-09 09:26] MED LIST changes: -DEXAMETHASONE SOD PHOSPHATE 10 MG/ML 1 ML VIAL IV ONE; -HYDROmorphone 0.5 MG/0.5 ML SYRINGE IVP PRN; -ONDANSETRON 4 MG/2 ML VIAL IVP ONE
[2020-06-09 10:23] VITALS: TEMP 98.4
[2020-06-09] MEDS ORDERED: LACTATED RINGERS 1,000 ML IV ONE (10:23)
[2020-06-09] MEDS ORDERED: LIDOCAINE 1% (10MG/ML) FOR IV START INTRADERMA ONE (10:25)
[2020-06-09] MEDS ORDERED: PROPOFOL 10 MG/ML 20 ML VIAL IV ONE (10:57)
--- NOTE | 2020-06-09 11:14 | P.PCN ---
Date of Procedure: 06/09/20 Description of Procedure: PREOPERATIVE DIAGNOSES: 1. Epigastric abdominal pain. 2. Nausea and vomiting. 3. History of gastric bypass. 4. Gastroesophageal reflux disease 5. Dysphagia POSTOPERATIVE DIAGNOSES: 1. Gastroesophageal reflux disease with erosive esophagitis PROCEDURE PERFORMED: Esophagogastrojejunoscopy. SURGEON: Carlita De La O MD ANESTHESIA: MAC. INDICATIONS: The patient is a 39-year-old female with prior history of Anna-en-Y gastric bypass. She reports dysphagia including severe acid reflux. Upper endoscopy was offered for further evaluation and management. DESCRIPTION: Patient was brought to the endoscopy suite and laid in the left lateral decubitus position. After adequate IV sedation, a bite block was placed. An Olympus gastroscope was passed along the posterior oropharynx down to the distal esophagus where the squamocolumnar junction was found at approximately 35 cm from the incisors. Anastomosis was found at 40 cm, consistent with approximately 5 cm gastric pouch. The scope was advanced 60 cm from the incisors. No evidence of foreign body was found. No evidence of active gastrojejunal ulcerations were encountered. The GI tract was desufflated. The patient tolerated the procedure well. FINDINGS: 1. No acute gastrojejunal ulceration. 2. No foreign body found along the anastomosis. 3. LA grade C erosive esophagitis PLAN: 1. Start Carafate 1 g twice a day 2. Omeprazole 40 mg daily Plan - Discharge Summary Discharge Rx Participant: Yes New Discharge Prescriptions: New Sucralfate [Carafate] 1 gm PO BID #30 tab Continue Omeprazole [PriLOSEC] 40 mg PO DAILY #30 cap Nystatin 100,000 Unit/ml Susp [Mycostatin Oral Susp] 4 ml PO QID Acetaminophen Tab [Tylenol] 1,000 mg PO Q6HR PRN #30 tablet Discharge Medication List Omeprazole [PriLOSEC] 40 mg PO DAILY #30 cap 01/21/20 [Rx] Nystatin 100,000 Unit/ml Susp [Mycostatin Oral Susp] 4 ml PO QID 04/11/20 [History] Acetaminophen Tab [Tylenol] 1,000 mg PO Q6HR PRN #30 tablet 04/14/20 [Rx] Sucralfate [Carafate] 1 gm PO BID #30 tab 06/09/20 [Rx] Follow up Appointment(s[facility] [facility] [place] - 06/22/20 Patient Instructions/Handouts: Gastroesophageal Reflux Disease (ED) Discharge Disposition: HOME SELF-CARE
[2020-06-09 11:46] VITALS: BP 113/80; PULSE 68; RESP 18
== END 2020-06-09 11:50 | disposition home or self-care (01) ==
LOC: ORWHC2ENDO 09:26
PROVIDERS: ATTEND Surgery Plastic and Reconstructive Surgery
DX: K21.00 Gastro-esophageal reflux disease with esophagitis, without bleeding (principal); K22.10 Ulcer of esophagus without bleeding; J45.909 Unspecified asthma, uncomplicated; M19.90 Unspecified osteoarthritis, unspecified site; M72.2 Plantar fascial fibromatosis; B37.9 Candidiasis, unspecified; Z88.1 Allergy status to other antibiotic agents; Z87.19 Personal history of other diseases of the digestive system; Z87.448 Personal history of other diseases of urinary system; Z98.84 Bariatric surgery status; Z90.49 Acquired absence of other specified parts of digestive tract; Z98.890 Other specified postprocedural states; Z91.89 Other specified personal risk factors, not elsewhere classified; Z87.891 Personal history of nicotine dependence; Z79.899 Other long term (current) drug therapy; Z87.11 Personal history of peptic ulcer disease
CPT/HCPCS: 81025; 88305; 43239; J2704

== ENCOUNTER 2023-03-05 15:25 | Emergency (ER) | payer BC ==
[2023-03-05] MEDS ORDERED: LORazepam 2 MG/ML INJ IV STA (16:30)
--- NOTE | 2023-03-05 16:36 | ED ---
General Adult HPI - General Chief complaint: Chest Pain Stated complaint: chest pain Time Seen by Provider: 03/05/23 15:45 Source: patient, RN notes reviewed, old records reviewed Mode of arrival: ambulatory Limitations: no limitations - History of Present Illness Initial comments: This is a 42-year-old female presents emergency Department with multiple complaint per patient states she has quite a bit of anxiety and occasionally she'll drink, soft on. Patient states she's been sober for 7 weeks and then this week and she drink quite heavily. Patient states she also drink today. Patient states she comes in today because since last night she's been having intermittent sharp chest pain and she's not sure if it's her anxiety or if she is issues. Patient states she also has achiness throughout her body some day she feels like she can't get out of bed. Patient states she also has chronic diarrhea since she had COVID. Patient also complains of overall weakness and fatigue to the point where her is complaining because they will go out and do anything because she doesn't feel right. Patient states also anytime she eats food out how it causes her to have an ALLERGIC reaction in her face swells. Patient states he only wished reproduce she prepares herself. - Related Data Home Medications Medication Instructions Recorded Confirmed Citalopram Hydrobromide 20 mg PO HS 03/05/23 03/05/23 [Citalopram HBr] Ergocalciferol [Vitamin D2 (1250 1,250 mcg PO TU 03/05/23 03/05/23 Mcg = 14076 Iu)] hydrOXYzine HCL [Atarax] 50 mg PO TID PRN 03/05/23 03/05/23 Previous Rx's Medication Instructions Recorded Omeprazole [PriLOSEC] 40 mg PO DAILY #30 cap 01/21/20 Allergies Allergy/AdvReac Type Severity Reaction Status Date / Time azithromycin AdvReac "FELT LIKE Verified 03/05/23 17:43 [From Zithromax Z-Martinez] MY BODY WAS ALL BRUISED AND SENSITIVE" Review of Systems ROS Statement: Those systems with pertinent positive or pertinent negative responses have been documented in the HPI. ROS Other: All systems not noted in ROS Statement are negative. Past Medical History Past Medical History: Asthma, GERD/Reflux, Osteoarthritis (OA) Additional Past Medical History / Comment(s): planter fasciitis, ulcer, hx hiatal hernia, SOB and "heart rate goes up", "abdomen is swollen and I feel pressure and have diff having a bowel movement", urinary urgency, current thrush History of Any Multi-Drug Resistant Organisms: None Reported Past Surgical History: Bariatric Surgery, Cholecystectomy, Hernia Repair Additional Past Surgical History / Comment(s): EGD, surgery to repair hiatal hernia and aretha-en-y, colonoscopy. LYSIS OF ADHESIONS/LAP JACQUELINE 04/14/20 Past Anesthesia/Blood Transfusion Reactions: Previous Problems w/ Anesthesia, Motion Sickness Additional Past Anesthesia/Blood Transfusion Reaction / Comment(s): headache post op, 'I have panic attacks before and after surgery" Past Psychological History: Anxiety Smoking Status: Former smoker Past Alcohol Use History: Abuse Past Drug Use History: None Reported - Past Family History Mother Family Medical History: No Reported History General Exam - General Exam Comments Initial Comments: GENERAL: Patient is well-developed and well-nourished. Patient is nontoxic and well- hydrated and is in no acute distress. Patient is tearful throughout the interview ENT: Neck is soft and supple. No significant lymphadenopathy is noted. Oropharynx is clear. Moist mucous membranes. Neck has full range of motion without eliciting any pain. EYES: The sclera were anicteric and conjunctiva were pink and moist. Extraocular movements were intact and pupils were equal round and reactive to light. Eyelids were unremarkable. PULMONARY: Unlabored respirations. Good breath sounds bilaterally. No audible rales rhonchi or wheezing was noted. CARDIOVASCULAR: There is a regular rate and rhythm without any murmurs gallops or rubs. ABDOMEN: Soft and nontender with normal bowel sounds. SKIN: Skin is clear with no lesions or rashes and otherwise unremarkable. NEUROLOGIC: Patient is alert and oriented x3. Cranial nerves II through XII are grossly intact. Motor and sensory are also intact. Normal speech, volume and content. Symmetrical smile. MUSCULOSKELETAL: Normal extremities with adequate strength and full range of motion. LYMPHATICS: No significant lymphadenopathy is noted PSYCHIATRIC: Patient appears very anxious Limitations: no limitations Course Vital Signs 03/05/23 03/05/23 03/05/23 15:31 16:12 16:18 Temperature 98.2 F Pulse Rate 119 H 90 102 H Respiratory 22 18 18 Rate Blood Pressure 123/78 137/100 119/98 O2 Sat by Pulse 93 L 96 99 Oximetry 03/05/23 03/05/23 18:00 19:00 Temperature 98.0 F Pulse Rate 75 93 Respiratory 18 20 Rate Blood Pressure 135/74 114/84 O2 Sat by Pulse 98 95 Oximetry Medical Decision Making - Medical Decision Making EKG was interpreted by myself. EKG shows a sinus rhythm at 86 bpm W[place] interval 152 QRS 79 QT interval 340 QTC is 384. Patient's EKG shows no ST segment elevation or depression. MWas pt. sent in by a medical professional or institution (, PA, HOME CARE COORDINATOR, urgent care, hospital, or [facility]...) When possible be specific @ -No Did you speak to anyone other than the patient for history (EMS, parent, family, police, friend...)? What history was obtained from this source @ -No Did you review nursing and triage notes (agree or disagree)? Why? @ -I reviewed and agree with nursing and triage notes Were old charts reviewed (outside hosp., previous admission, EMS record, old EKG, old radiological studies, urgent care reports/EKG's, [facility] records)? Report findings @ -I reviewed prior charts per radiological studies and prior labs. Differential Diagnosis (chest pain, altered mental status, abdominal pain women, abdominal pain men, vaginal bleeding, weakness, fever, dyspnea, syncope, headache, dizziness, GI bleed, back pain, seizure, CVA, palpatations, mental health, musculoskeletal)? @ -Differential Chest Pain: Stable Angina, Unstable Angina, STEMI, NSTEMI Aortic Dissection, Pneumothorax, Musculoskeletal, Esophageal Spasm GERD, Cholecystitis, Pancreatitis, Zoster, this is not meant to be an all-inclusive list. EKG interpreted by me (3pts min.). @ -As above X-rays interpreted by me (1pt min.). @ -Chest x-ray shows no acute abnormality CT interpreted by me (1pt min.). @ -None done U/S interpreted by me (1pt. min.). @ -None done What testing was considered but not performed or refused? (CT, X-rays, U/S, labs)? Why? @ -None What meds were considered but not given or refused? Why? @ -None Did you discuss the management of the patient with other professionals (professionals i.e. , PJ, HOME CARE COORDINATOR, lab, RT, psych nurse, secondary social studies teacher, tear down matcher, teacher, custom protection officer, caseworker)? Give summary @ -No Was smoking cessation discussed for >3mins.? @ -No Was critical care preformed (if so, how long)? @ -No Were there social determinants of health that impacted care today? How? (Homelessness, low income, unemployed, alcoholism, drug addiction, transportation, low edu. Level, literacy, decrease access to med. care, senior care, rehab)? @ -No Was there de-escalation of care discussed even if they declined (Discuss DNR or withdrawal of care, Hospice)? DNR status @ -No What co-morbidities impacted this encounter? (DM, HTN, Smoking, COPD, CAD, Cancer, CVA, ARF, Chemo, Hep., AIDS, mental health diagnosis, sleep apnea, morbid obesity)? @ -None Was patient admitted / discharged? Hospital course, mention meds given and route, prescriptions, significant lab abnormalities, going to OR and other pertinent info. @ -Patient was extremely anxious and tearful when I initially talked regular 1 mg/m she rested comfortably and was sleeping when I went back in the room to give her her results. Patient was comfortable following up with her primary medical care doctor and a psychiatrist. Patient was feeling much better and she agreed that she would be following up. Undiagnosed new problem with uncertain prognosis? @ -No Drug Therapy requiring intensive monitoring for toxicity (Heparin, Nitro, Insulin, Cardizem)? @ -No Were any procedures done? @ -No Diagnosis/symptom? @ -Anxiety Acute, or Chronic, or Acute on Chronic? @ -Acute Uncomplicated (without systemic symptoms) or Complicated (systemic symptoms)? @ -Uncomplicated Side effects of treatment? @ -No Exacerbation, Progression, or Severe Exacerbation? @ -No Poses a threat to life or bodily function? How? (Chest pain, [place], [place], pneumonia, PE, COPD, DKA, ARF, appy, cholecystitis, CVA, Diverticulitis, Homicidal, Suicidal, threat to staff... and all critical care pts) @ -No Diagnosis/symptom? @ -Atypical chest pain Acute, or Chronic, or Acute on Chronic? @ -Acute Uncomplicated (without systemic symptoms) or Complicated (systemic symptoms)? @ -Uncomplicated Side effects of treatment? @ -none Exacerbation, Progression, or Severe Exacerbation] @ -no Poses a threat to life or bodily function? @ -no Diagnosis/symptom? @ -Alcohol abuse Acute, or Chronic, or Acute on Chronic? @ -Chronic Uncomplicated (without systemic symptoms) or Complicated (systemic symptoms)? @ -Complicated Side effects of treatment? @ -none Exacerbation, Progression, or Severe Exacerbation] @ -no Poses a threat to life or bodily function? @ -no Diagnosis/symptom? @ -Alcoholic hepatitis acute on chronic Acute, or Chronic, or Acute on Chronic? @ -default Uncomplicated (without systemic symptoms) or Complicated (systemic symptoms)? @ -Complicated Side effects of treatment? @ -none Exacerbation, Progression, or Severe Exacerbation] @ -no Poses a threat to life or bodily function? @ -no - Lab Data Result diagrams: 03/05/23 16:41 03/05/23 16:41 Lab Results 03/05/23 03/05/23 03/05/23 Range/Units 16:41 16:41 16:41 WBC 6.6 (3.8-10.6) k/uL RBC 4.47 (3.80-5.40) m/uL Hgb 14.5 (11.4-16.0) gm/dL Hct 43.7 (34.0-46.0) % MCV 97.7 (80.0-100.0) fL MCH 32.3 (25.0-35.0) pg MCHC 33.1 (31.0-37.0) g/dL RDW 15.6 H (11.5-15.5) % Plt Count 200 (150-450) k/uL MPV 9.0 Neutrophils % 59 % Lymphocytes % 30 % Monocytes % 6 % Eosinophils % 2 % Basophils % 0 % Neutrophils # 3.9 (1.3-7.7) k/uL Lymphocytes # 2.0 (1.0-4.8) k/uL Monocytes # 0.4 (0-1.0) k/uL Eosinophils # 0.1 (0-0.7) k/uL Basophils # 0.0 (0-0.2) k/uL PT 10.7 (9.0-12.0) sec INR 1.0 (<1.2) APTT 23.6 (22.0-30.0) sec Sodium 132 L (137-145) mmol/L Potassium 4.5 (3.5-5.1) mmol/L Chloride 97 L (98-107) mmol/L Carbon Dioxide 26 (22-30) mmol/L Anion Gap 9 mmol/L BUN 19 H (7-17) mg/dL Creatinine 0.76 (0.52-1.04) mg/dL Est GFR (CKD-EPI)AfAm >90 (>60 ml/min/1.73 sqM) Est GFR (CKD-EPI)NonAf >90 (>60 ml/min/1.73 sqM) Glucose 93 (74-99) mg/dL Calcium 8.6 (8.4-10.2) mg/dL Magnesium 2.2 (1.6-2.3) mg/dL Total Bilirubin 2.9 H (0.2-1.3) mg/dL AST 577 H (14-36) U/L ALT 219 H (4-34) U/L Alkaline Phosphatase 271 H (38-126) U/L Troponin I (0.000-0.034) ng/mL Total Protein 6.6 (6.3-8.2) g/dL Albumin 3.4 L (3.5-5.0) g/dL Serum Alcohol 143 mg/dL 03/05/23 Range/Units 16:41 WBC (3.8-10.6) k/uL RBC (3.80-5.40) m/uL Hgb (11.4-16.0) gm/dL Hct (34.0-46.0) % MCV (80.0-100.0) fL MCH (25.0-35.0) pg MCHC (31.0-37.0) g/dL RDW (11.5-15.5) % Plt Count (150-450) k/uL MPV Neutrophils % % Lymphocytes % % Monocytes % % Eosinophils % % Basophils % % Neutrophils # (1.3-7.7) k/uL Lymphocytes # (1.0-4.8) k/uL Monocytes # (0-1.0) k/uL Eosinophils # (0-0.7) k/uL Basophils # (0-0.2) k/uL PT (9.0-12.0) sec INR (<1.2) APTT (22.0-30.0) sec Sodium (137-145) mmol/L Potassium (3.5-5.1) mmol/L Chloride (98-107) mmol/L Carbon Dioxide (22-30) mmol/L Anion Gap mmol/L BUN (7-17) mg/dL Creatinine (0.52-1.04) mg/dL Est GFR (CKD-EPI)AfAm (>60 ml/min/1.73 sqM) Est GFR (CKD-EPI)NonAf (>60 ml/min/1.73 sqM) Glucose (74-99) mg/dL Calcium (8.4-10.2) mg/dL Magnesium (1.6-2.3) mg/dL Total Bilirubin (0.2-1.3) mg/dL AST (14-36) U/L ALT (4-34) U/L Alkaline Phosphatase (38-126) U/L Troponin I <0.012 (0.000-0.034) ng/mL Total Protein (6.3-8.2) g/dL Albumin (3.5-5.0) g/dL Serum Alcohol mg/dL Disposition Clinical Impression: Anxiety, Atypical chest pain, Alcohol abuse, Alcoholic hepatitis Disposition: HOME SELF-CARE Condition: Good Instructions (If sedation given, give patient instructions): Chest Pain (ED), Anxiety (ED) Is patient prescribed a controlled substance at d/c from ED?: No Referrals: Rolanda Ovalle DO [Primary Care Provider] - 1-2 days Time of Disposition: 19:53
[2023-03-05 16:54] LABS: Basophils % (A) 0 %; Eosinophils # (A) 0.1 k/uL (0-0.7); Eosinophils % (A) 2 %; HCT 43.7 % (34.0-46.0); HGB 14.5 gm/dL (11.4-16.0); Lymphocytes % (A) 30 %; MCH 32.3 pg (25.0-35.0); MCHC 33.1 g/dL (31.0-37.0); MCV 97.7 fL (80.0-100.0); Monocytes # (A) 0.4 k/uL (0-1.0); Monocytes % (A) 6 %; Neutrophils # (A) 3.9 k/uL (1.3-7.7); Neutrophils % (A) 59 %; Platelet Count 200 k/uL (150-450); RBC 4.47 m/uL (3.80-5.40); RDW 15.6 % (11.5-15.5); WBC 6.6 k/uL (3.8-10.6)
--- NOTE | 2023-03-05 17:03 | XR ---
EXAMINATION TYPE: XR chest 2V DATE OF EXAM: 03/05/2023 COMPARISON: NONE HISTORY: Chest pain TECHNIQUE: Frontal and lateral views of the chest are obtained. FINDINGS: There is no focal air space opacity. No evidence for pneumothorax. No pleural effusion. The cardiac silhouette size is within normal limits. The osseous structures are grossly intact. IMPRESSION: 1. No acute cardiopulmonary process.
[2023-03-05 17:05] LABS: Partial Thromboplastin Time 23.6 sec (22.0-30.0); Prothrombin Time 10.7 sec (9.0-12.0)
[2023-03-05 17:06] LABS: ALT 219 U/L (4-34); AST 577 U/L (14-36); African American GFR (CKD) >90 (>60 ml/min/1.73 sqM); Albumin 3.4 g/dL (3.5-5.0); Alkaline Phosphatase 271 U/L (38-126); Anion Gap 9 mmol/L; Blood Urea Nitrogen 19 mg/dL (7-17); Calcium 8.6 mg/dL (8.4-10.2); Carbon Dioxide 26 mmol/L (22-30); Chloride 97 mmol/L (98-107); Glucose 93 mg/dL (74-99); Magnesium 2.2 mg/dL (1.6-2.3); Non-African American GFR(CKD) >90 (>60 ml/min/1.73 sqM); Potassium 4.5 mmol/L (3.5-5.1); Sodium 132 mmol/L (137-145); Total Bilirubin 2.9 mg/dL (0.2-1.3); Total Protein 6.6 g/dL (6.3-8.2)
[2023-03-05 17:23] LABS: Alcohol 143 mg/dL
[2023-03-05 20:40] VITALS: BP 123/93; PULSE 75; RESP 18; TEMP 98.1
== END 2023-03-05 20:45 | disposition home or self-care (01) ==
LOC: EC 15:25
DX: F41.9 Anxiety disorder, unspecified (principal); F10.10 Alcohol abuse, uncomplicated; K70.10 Alcoholic hepatitis without ascites; R07.89 Other chest pain; J45.909 Unspecified asthma, uncomplicated; Y90.6 Blood alcohol level of 120-199 mg/100 ml; Z79.899 Other long term (current) drug therapy; Z87.891 Personal history of nicotine dependence; Z88.1 Allergy status to other antibiotic agents; Z90.49 Acquired absence of other specified parts of digestive tract; Z86.16 Personal history of COVID-19
CPT/HCPCS: 36415; 93005; 80053; 83735; 84484; 85025; 85610; 85730; 80320; 71046; 99285; 96374; J2060

== ENCOUNTER 2023-03-11 17:36 | Observation (INO) | payer BC ==
[2023-03-11 20:14] LABS: Basophils % (A) 1 %; Eosinophils # (A) 0.1 k/uL (0-0.7); Eosinophils % (A) 3 %; HCT 40.4 % (34.0-46.0); Lymphocytes % (A) 39 %; MCH 33.5 pg (25.0-35.0); MCHC 34.6 g/dL (31.0-37.0); MCV 96.8 fL (80.0-100.0); Mean Platelet Volume 8.6; Monocytes # (A) 0.2 k/uL (0-1.0); Monocytes % (A) 4 %; Neutrophils # (A) 2.7 k/uL (1.3-7.7); Neutrophils % (A) 52 %; Platelet Count 183 k/uL (150-450); RBC 4.17 m/uL (3.80-5.40); WBC 5.1 k/uL (3.8-10.6)
[2023-03-11 20:22] LABS: ALT 218 U/L (4-34); African American GFR (CKD) >90 (>60 ml/min/1.73 sqM); Albumin 3.5 g/dL (3.5-5.0); Alkaline Phosphatase 499 U/L (38-126); Anion Gap 9 mmol/L; Blood Urea Nitrogen 13 mg/dL (7-17); Calcium 8.8 mg/dL (8.4-10.2); Carbon Dioxide 26 mmol/L (22-30); Chloride 96 mmol/L (98-107); Glucose 113 mg/dL (74-99); Magnesium 1.8 mg/dL (1.6-2.3); Non-African American GFR(CKD) 87 (>60 ml/min/1.73 sqM); Partial Thromboplastin Time 22.9 sec (22.0-30.0); Prothrombin Time 10.5 sec (9.0-12.0); Sodium 131 mmol/L (137-145); Total Bilirubin 1.9 mg/dL (0.2-1.3); Total Protein 6.8 g/dL (6.3-8.2)
[2023-03-11 20:29] LABS: AST 852 U/L (14-36)
--- NOTE | 2023-03-11 20:55 | XR ---
EXAMINATION TYPE: XR chest 2V DATE OF EXAM: 03/11/2023 COMPARISON: 03/05/2023 HISTORY: 42-year-old female with chest pain and abdominal pain TECHNIQUE: PA and lateral views FINDINGS: The cardiomediastinal silhouette, aorta, and pulmonary vasculature are within normal limits. Lungs an d pleural spaces are clear. IMPRESSION: No acute cardiopulmonary process.
[2023-03-11] MEDS ORDERED: SODIUM CHLORIDE 0.9% 1,000 ML IV STA (21:56)
[2023-03-11] MEDS ORDERED: SODIUM CHLORIDE 0.9% 500 ML 500 ML IV STA (21:56)
[2023-03-11] MEDS ORDERED: LORazepam 2 MG/ML INJ IV STA (21:56)
--- NOTE | 2023-03-11 21:57 | ED ---
Weakness HPI - General Chief complaint: Chest Pain Stated complaint: Chest Pain, SOB Time Seen by Provider: 03/11/23 21:16 Source: patient, RN notes reviewed, old records reviewed Mode of arrival: ambulatory Limitations: no limitations - History of Present Illness Initial comments: This is a 6-year-old female to the emergency department for evaluation. Patient presents today for evaluation of multiple specific nonspecific symptoms. Patient has nausea vomiting abdominal pain weakness not feeling well. Patient is significantly concerned for surgical complications. Multiple different causes of severe anxiety and tremor. Patient feels like no other dressing her house and she has multiple visits including prior ER visits for similar complaints and has not had satisfactory evaluation. Patient denying fever cough congestion travel history sick contacts or any other new come complaints, no recent medication changes. Presents today MD Complaint: generalized weakness Location: generalized Severity: moderate Severity scale (1-10): 7 Quality: tingling, aching Consistency: constant Improves with: none Worsens with: none Context: recent illness, history of similar Associated Symptoms: confusion, loss of appetite, nausea/vomiting, myalgias - Related Data Home Medications Medication Instructions Recorded Confirmed hydrOXYzine HCL [Atarax] 50 mg PO TID PRN 03/05/23 03/11/23 Ferrous Sulfate [Iron (65 MG 325 mg PO DAILY 03/11/23 03/11/23 Elemental)] L.acidoph,Paracasei, B.lactis 1 cap PO DAILY 03/11/23 03/11/23 [Probiotic] Multivitamins, Thera [Multivitamin 1 tab PO DAILY 03/11/23 03/11/23 (formulary)] Previous Rx's Medication Instructions Recorded DULoxetine HCL [Cymbalta] 30 mg PO BID #60 cap 03/14/23 Omeprazole [PriLOSEC] 40 mg PO BID #60 cap 03/14/23 Thiamine [Vitamin B-1] 100 mg PO DAILY #30 tab 03/14/23 traZODone HCL 150 mg PO HS 14 Days #14 tablet 03/14/23 Allergies Allergy/AdvReac Type Severity Reaction Status Date / Time azithromycin AdvReac "FELT LIKE Verified 03/11/23 22:25 [From Zithromax Z-Martinez] MY BODY WAS ALL BRUISED AND SENSITIVE" Review of Systems ROS Statement: Those systems with pertinent positive or pertinent negative responses have been documented in the HPI. ROS Other: All systems not noted in ROS Statement are negative. Past Medical History Past Medical History: Asthma, GERD/Reflux, Osteoarthritis (OA) Additional Past Medical History / Comment(s): planter fasciitis, ulcer, hx hiatal hernia, SOB and "heart rate goes up", "abdomen is swollen and I feel pressure and have diff having a bowel movement", urinary urgency, current thrush, long COVID History of Any Multi-Drug Resistant Organisms: None Reported Past Surgical History: Bariatric Surgery, Cholecystectomy, Hernia Repair Additional Past Surgical History / Comment(s): EGD, surgery to repair hiatal hernia and aretha-en-y, colonoscopy. LYSIS OF ADHESIONS/LAP JACQUELINE 04/14/20 Past Anesthesia/Blood Transfusion Reactions: Previous Problems w/ Anesthesia, Motion Sickness Additional Past Anesthesia/Blood Transfusion Reaction / Comment(s): headache post op, 'I have panic attacks before and after surgery" Past Psychological History: Anxiety Smoking Status: Former smoker Past Alcohol Use History: Abuse Past Drug Use History: Marijuana - Past Family History Mother Family Medical History: No Reported History General Exam Limitations: no limitations General appearance: alert, in no apparent distress, anxious Head exam: Present: atraumatic, normocephalic, normal inspection Eye exam: Present: normal appearance, PERRL, EOMI. Absent: scleral icterus, conjunctival injection, periorbital swelling ENT exam: Present: normal exam, mucous membranes moist Neck exam: Present: normal inspection. Absent: tenderness, meningismus, lymphadenopathy Respiratory exam: Present: normal lung sounds bilaterally. Absent: respiratory distress, wheezes, rales, rhonchi, stridor Cardiovascular Exam: Present: normal rhythm, tachycardia, normal heart sounds. Absent: systolic murmur, diastolic murmur, rubs, gallop, clicks GI/Abdominal exam: Present: soft, normal bowel sounds. Absent: distended, te nderness, guarding, rebound, rigid Extremities exam: Present: normal inspection, full ROM, normal capillary refill. Absent: tenderness, pedal edema, joint swelling, calf tenderness Back exam: Present: normal inspection Neurological exam: Present: alert, oriented X3, CN II-XII intact Psychiatric exam: Present: normal affect, normal mood Skin exam: Present: warm, dry, intact, normal color. Absent: rash Course Vital Signs 03/11/23 03/11/23 03/11/23 17:43 21:00 21:50 Temperature 98.7 F Pulse Rate 142 H 97 87 Respiratory 24 19 Rate Blood Pressure 136/93 131/95 151/81 O2 Sat by Pulse 95 97 97 Oximetry 03/11/23 03/11/23 03/11/23 22:00 23:00 23:10 Temperature Pulse Rate 81 86 71 Respiratory 18 19 Rate Blood Pressure 151/81 127/83 118/66 O2 Sat by Pulse 98 95 Oximetry 03/12/23 03/12/23 03/12/23 02:31 07:50 11:00 Temperature Pulse Rate 80 75 81 Respiratory 16 19 18 Rate Blood Pressure 114/88 120/75 115/81 O2 Sat by Pulse 91 L 97 97 Oximetry 03/12/23 03/12/23 15:03 17:27 Temperature 97.8 F 97.4 F L Pulse Rate 85 70 Respiratory 17 16 Rate Blood Pressure 116/87 139/63 O2 Sat by Pulse 98 99 Oximetry - Reevaluation(s) Reevaluation #1: 03/11/23 23:24 Medical record is reviewed Reevaluation #2: 03/11/23 23:25 Patient has no change in symptoms here in the ER Reevaluation #3: 03/11/23 23:25 Patient informed results and questions answered Reevaluation #4: 03/11/23 21:56 Was pt. sent in by a medical professional or institution (Dr. PA, AIR INTERCEPT CONTROLLER, urgent care, hospital, or half-way...) When possible be specific @ -no Did you speak to anyone other than the patient for history (EMS, parent, family, police, friend...)? What history was obtained from this source @ -no Did you review nursing and triage notes (agree or disagree)? Why? @ -agree Are old charts reviewed (outside hosp., previous admission, EMS record, old EKG, old radiological studies, urgent care reports/EKG's, half-way records)? Report findings @ -yes Differential Diagnosis (chest pain, altered mental status, abdominal pain women, abdominal pain men, vaginal bleeding, weakness, fever, dyspnea, syncope, heada morgan, dizziness, GI bleed, back pain, seizure, CVA, palpatations, mental health, musculoskeletal)? @ -prior EKG interpreted by me (3pts min.). @ -yes X-rays interpreted by me (1pt min.). @ -no CT interpreted by me (1pt min.). @ -yes U/S interpreted by me (1pt. min.). @ -no What testing was considered but not performed or refused? (CT, X-rays, U/S, labs)? Why? @ -none What meds were considered but not given or refused? Why? @ -none Did you discuss the management of the patient with other professionals (professionals i.e. , PA, AIR INTERCEPT CONTROLLER, lab, RT, psych nurse, secondary social studies teacher, cushion sewer, teacher, protocol officer, trimming caser)? Give summary @ -no Was smoking cessation discussed for >3mins.? @ -no Was critical care preformed (if so, how long)? @ -no Were there social determinants of health that impacted care today? How? (Homelessness, low income, unemployed, alcoholism, drug addiction, braun sportation, low edu. Level, literacy, decrease access to med. care, [facility], rehab)? @ -none Was there de-escalation of care discussed even if they declined (Discuss DNR or withdrawal of care, Hospice)? DNR status @ -no What co-morbidities impacted this encounter? (DM, HTN, Smoking, COPD, CAD, Cancer, CVA, ARF, Chemo, Hep., AIDS, mental health diagnosis, sleep apnea, morbid obesity)? @ -none Was patient admitted / discharged? Hospital course, mention meds given and route, prescriptions, significant lab abnormalities, going to OR and other pertinent info. @ - 42 female to the emergency department for evaluation of multiple nonspecific symptoms. Patient states she has multiple recent ER visits without significant are satisfactory evaluation and treatment. Patient states weakness nausea vomiting abdominal pain chest pain persistent shaking has not stopped. Patient does not fill comfortable with discharge her she states her health is significantly deteriorating Admitted Undiagnosed new problem with uncertain prognosis? @ -no Drug Therapy requiring intensive monitoring for toxicity (Heparin, Nitro, Insulin, Cardizem)? @ -no Were any procedures done? @ -no Diagnosis/symptom? @ -Abdominal pain, nausea vomiting, weakness, chest pain Acute, or Chronic, or Acute on Chronic? @ -Acute Uncomplicated (without systemic symptoms) or Complicated (systemic symptoms)? @ -Complicated Side effects of treatment? @ -no Exacerbation, Progression, or Severe Exacerbation? @ -exacerbation Poses a threat to life or bodily function? How? (Chest pain, [place], [place], pneumonia, PE, COPD, DKA, ARF, appy, cholecystitis, CVA, Diverticulitis, Homicidal, Suicidal, threat to staff... and all critical care pts) @ -no - Consultations Consultation #1: Spoke with Dr. Stockton agrees to admit the patient EKG Findings - EKG Comments: EKG Findings:: EKG is sinus 98 NE 169 QRS 84 QTC 378 Medical Decision Making - Medical Decision Making 42 female to the emergency department for evaluation of multiple nonspecific symptoms. Patient states she has multiple recent ER visits without significant are satisfactory evaluation and treatment. Patient states weakness nausea vomiting abdominal pain chest pain persistent shaking has not stopped. Patient does not fill comfortable with discharge her she states her health is significantly deteriorating - Lab Data Result diagrams: 03/15/23 05:57 03/15/23 05:57 Lab Results 03/11/23 03/11/23 03/11/23 Range/Units 20:04 20:04 20:04 WBC 5.1 (3.8-10.6) k/uL RBC 4.17 (3.80-5.40) m/uL Hgb 14.0 (11.4-16.0) gm/dL Hct 40.4 (34.0-46.0) % MCV 96.8 (80.0-100.0) fL MCH 33.5 (25.0-35.0) pg MCHC 34.6 (31.0-37.0) g/dL RDW 16.0 H (11.5-15.5) % Plt Count 183 (150-450) k/uL MPV 8.6 Neutrophils % 52 % Lymphocytes % 39 % Monocytes % 4 % Eosinophils % 3 % Basophils % 1 % Neutrophils # 2.7 (1.3-7.7) k/uL Lymphocytes # 2.0 (1.0-4.8) k/uL Monocytes # 0.2 (0-1.0) k/uL Eosinophils # 0.1 (0-0.7) k/uL Basophils # 0.0 (0-0.2) k/uL PT 10.5 (9.0-12.0) sec INR 1.0 (<1.2) APTT 22.9 (22.0-30.0) sec Sodium 131 L (137-145) mmol/L Potassium 4.0 (3.5-5.1) mmol/L Chloride 96 L (98-107) mmol/L Carbon Dioxide 26 (22-30) mmol/L Anion Gap 9 mmol/L BUN 13 (7-17) mg/dL Creatinine 0.84 (0.52-1.04) mg/dL Est GFR (CKD-EPI)AfAm >90 (>60 ml/min/1.73 sqM) Est GFR (CKD-EPI)NonAf 87 (>60 ml/min/1.73 sqM) Glucose 113 H (74-99) mg/dL Calcium 8.8 (8.4-10.2) mg/dL Phosphorus (2.5-4.5) mg/dL Magnesium 1.8 (1.6-2.3) mg/dL Total Bilirubin 1.9 H (0.2-1.3) mg/dL AST 852 H (14-36) U/L ALT 218 H (4-34) U/L Alkaline Phosphatase 499 H (38-126) U/L Troponin I (0.000-0.034) ng/mL C-Reactive Protein (<1.0) mg/dL Total Protein 6.8 (6.3-8.2) g/dL Albumin 3.5 (3.5-5.0) g/dL TSH (0.465-4.680) mIU/L 03/11/23 03/11/23 Range/Units 20:04 21:55 WBC (3.8-10.6) k/uL RBC (3.80-5.40) m/uL Hgb (11.4-16.0) gm/dL Hct (34.0-46.0) % MCV (80.0-100.0) fL MCH (25.0-35.0) pg MCHC (31.0-37.0) g/dL RDW (11.5-15.5) % Plt Count (150-450) k/uL MPV Neutrophils % % Lymphocytes % % Monocytes % % Eosinophils % % Basophils % % Neutrophils # (1.3-7.7) k/uL Lymphocytes # (1.0-4.8) k/uL Monocytes # (0-1.0) k/uL Eosinophils # (0-0.7) k/uL Basophils # (0-0.2) k/uL PT (9.0-12.0) sec INR (<1.2) APTT (22.0-30.0) sec Sodium (137-145) mmol/L Potassium (3.5-5.1) mmol/L Chloride (98-107) mmol/L Carbon Dioxide (22-30) mmol/L Anion Gap mmol/L BUN (7-17) mg/dL Creatinine (0.52-1.04) mg/dL Est GFR (CKD-EPI)AfAm (>60 ml/min/1.73 sqM) Est GFR (CKD-EPI)NonAf (>60 ml/min/1.73 sqM) Glucose (74-99) mg/dL Calcium (8.4-10.2) mg/dL Phosphorus 3.0 (2.5-4.5) mg/dL Magnesium 1.8 (1.6-2.3) mg/dL Total Bilirubin (0.2-1.3) mg/dL AST (14-36) U/L ALT (4-34) U/L Alkaline Phosphatase (38-126) U/L Troponin I <0.012 (0.000-0.034) ng/mL C-Reactive Protein <0.5 (<1.0) mg/dL Total Protein (6.3-8.2) g/dL Albumin (3.5-5.0) g/dL TSH 3.440 (0.465-4.680) mIU/L - Radiology Data Radiology results: report reviewed (Chest x-ray CTA chest and CT head and pelvis negative for acute disease), image reviewed Disposition Clinical Impression: Atypical chest pain, Anxiety, Abdominal pain, Nausea & vomiting, Weakness, Transaminitis Disposition: ADMITTED IP TO THIS [facility] Is patient prescribed a controlled substance at d/c from ED?: No Time of Disposition: 23:20
[2023-03-11 22:24] LABS: C Reactive Protein <0.5 mg/dL (<1.0); Magnesium 1.8 mg/dL (1.6-2.3)
--- NOTE | 2023-03-11 22:57 | CT ---
EXAM: CT Angiography Chest With Intravenous Contrast CLINICAL HISTORY: ITS.REASON CT Reason: pain TECHNIQUE: Axial computed tomographic angiography images of the chest with intravenous contrast. CTDI is 12.3 mGy and DLP is 537.8 mGy-cm. This CT exam was performed using one or more of the following dose reduction techniques: automated exposure control, adjustment of the mA and/or kV according to patient size, and/or use of iterative reconstruction technique. MIP reconstructed images were created and reviewed. COMPARISON: No relevant prior studies available. FINDINGS: Pulmonary arteries: Unremarkable. No acute pulmonary embolism. Aorta: No acute findings. No thoracic aortic aneurysm. Lungs: Unremarkable. No mass. No consolidation. Pleural space: Unremarkable. No focal infiltrate, pleural effusion, or pneumothorax. Heart: Unremarkable. No cardiomegaly. No significant pericardial effusion. No evidence of RV dysfunction. Bones/joints: No acute fracture. No dislocation. Soft tissues: Unremarkable. Lymph nodes: Unremarkable. No enlarged lymph nodes. Liver: Severe hepatic steatosis. Stomach and bowel: Anna-en-Y gastric bypass. IMPRESSION: 1. No focal infiltrate, pleural effusion, or pneumothorax. 2. No acute pulmonary embolism. 3. Severe hepatic steatosis. 4. Anna-en-Y gastric bypass.
--- NOTE | 2023-03-11 23:13 | CT ---
EXAM: CT Abdomen and Pelvis With Intravenous Contrast CLINICAL HISTORY: ITS.REASON CT Reason: pain TECHNIQUE: Axial computed tomography images of the abdomen and pelvis with intravenous contrast. CTDI is 15 mGy and DLP is 958.8 mGy-cm. This CT exam was performed using one or more of the following dose reduction techniques: automated exposure control, adjustment of the mA and/or kV according to patient size, and/or use of iterative reconstruction technique. COMPARISON: No relevant prior studies available. FINDINGS: Lung bases: Unremarkable. No mass. No consolidation. ABDOMEN: Liver: Severe hepatic steatosis. Gallbladder and bile ducts: Cholecystectomy. No ductal dilation. Pancreas: Unremarkable. No mass. No ductal dilation. Spleen: Unremarkable. No splenomegaly. Adrenals: Unremarkable. No mass. Kidneys and ureters: Unremarkable. No solid mass. No hydronephrosis. Stomach and bowel: Anna-en-Y gastric bypass. No obstruction of the jejunojejunostomy. No mucosal thickening. PELVIS: Appendix: No findings to suggest acute appendicitis. Bladder: Unremarkable. No mass. Reproductive: Unremarkable as visualized. ABDOMEN and PELVIS: Intraperitoneal space: Unremarkable. No free air. No significant fluid collection. Bones/joints: No acute fracture. No dislocation. Soft tissues: Unremarkable. Vasculature: Unremarkable. No abdominal aortic aneurysm. Lymph nodes: Unremarkable. No enlarged lymph nodes. IMPRESSION: 1. Severe hepatic steatosis. 2. Cholecystectomy. 3. Anna-en-Y gastric bypass. No obstruction of the jejunojejunostomy.
[2023-03-11] MEDS ORDERED: ONDANSETRON 4 MG/2 ML VIAL IVP PRN (23:20)
[2023-03-11] MEDS ORDERED: NALOXONE 0.4 MG/ML 1 ML VIAL IV PRN (23:20)
[2023-03-11] MEDS ORDERED: MORPHINE SULFATE 4 MG/ML SYRINGE IV PRN (23:20)
[2023-03-11] MEDS ORDERED: LORazepam 2 MG/ML INJ IV PRN ×2 (23:22)
[2023-03-11] MEDS ORDERED: THIAMINE 100 MG/ML 2 ML VIAL IM STA (23:22)
[2023-03-12] MEDS: SODIUM CHLORIDE 0.9% 1,000 ML IV SCH ×4 (00:15→20:23)
[2023-03-12] MEDS: LORazepam 2 MG/ML INJ IV PRN ×3 (02:41→11:14)
[2023-03-12] MEDS: THIAMINE 100 MG TAB PO SCH (08:09)
[2023-03-12] MEDS ORDERED: PANTOPRAZOLE 40 MG TABLET PO SCH (10:45)
[2023-03-12] MEDS: MULTIVITAMINS, THERA 1 EACH TAB PO SCH (11:13)
[2023-03-12] MEDS: LACTOBACILLUS ACIDOPHILUS/PECT 1 EACH CAPSULE PO SCH (11:14)
[2023-03-12] MEDS ORDERED: PEG 3350 (420 GM/BTL) + LYTES 4,000 ML BOTTLE PO ONE (11:51)
--- NOTE | 2023-03-12 12:06 | P.GSCN ---
History of Present Illness Consult date: 03/12/23 History of present illness: CHIEF COMPLAINT: Abdominal pain HISTORY OF PRESENT ILLNESS: This is a 42-year-old female with a known past surgical history of a Anna-en-Y, hiatal hernia repair and cholecystectomy. Patient presents to the hospital with complaints of abdominal pain and nausea vomiting. She reports that these symptoms have been intermittent since November en she was diagnosed with Coban. Patient reports over the last few days the pain has worsened in the abdomen she reports having charley horses across the abdomen. She is vomiting almost daily. At times her will be streaks of blood noted. Also she reports occasional black stools last black stools about 3 days ago. She has been having diarrhea. She complains of abdominal bloating and left-sided abdominal pain. She reports that she's been having abdominal pain after eating also with increased bloating. Patient does have a history of alcohol abuse. Her last alcoholic beverage was on . She reports that she's been trying to cut back. He does have elevated liver enzymes and elevated total bili lab work. CT of the abdomen did show evidence of a severe fatty liver. Patient's last EGD was in May 2020 which had shown erosive esophagitis last colonoscopy in January 2028 showed colon polyps. Patient reports that she was due for colonoscopy. Denies any blood thinners or NSAID use. PAST MEDICAL HISTORY: See list. PAST SURGICAL HISTORY: See list. MEDICATIONS: See list. ALLERGIES: See list. SOCIAL HISTORY: No illicit drug use. REVIEW OF SYSTEMS: CONSTITUTIONAL: Denies fever or chills. HEENT: Denies blurred vision, vision changes, or eye pain. Denies hemoptysis ENDOCRINE: Denies heat or cold intolerance. CARDIOVASCULAR: Denies chest pain or pressure. RESPIRATORY: No shortness of breath. GASTROINTESTINAL: Please refer to HPI NEURO: Denies history of seizures. PSYCH: No depression or suicidal ideation HEMATOLOGIC: Denies bleeding disorders. LYMPHATIC: The patient denies any lumps and bumps around the neck. GENITOURINARY: Denies any blood in urine or increased urinary frequency. MUSCULOSKELETAL: Denies myalgias. Denies joint swelling. Denies decreased range of motion beyond patients baseline. SKIN: Denies pruitis. Denies rash. PHYSICAL EXAM: VITAL SIGNS: Reviewed GENERAL: Well-developed in no acute distress. HEENT: No sclera icterus. Extraocular movements grossly intact. Moist buccal mucosa. Head is atraumatic, normocephalic. Hears conversational speech. No nasal drainage. NECK: Supple without lymphadenopathy. CHEST: Non-labored respirations and equal bilateral excursions. CARDIOVASCULAR: Palpable 2+ radial pulses. ABDOMEN: Soft. Nondistended. Diffuse tenderness MUSCULOSKELETAL: No clubbing or cyanosis. NEUROLOGIC: No focal or lateralizing signs. Cranial nerves II through XII grossly intact. PSYCH: Appropriate affect. Alert and oriented to person, place and time. SKIN: Well perfused. Good skin turgor. LABORATORY DATA: WBC 5.1 Hgb 14 platelets 183 Sodium 131 potassium 4.0 creatinine 0.84 Magnesium 1.8 phosphorus 3.0 Total bili 1.9 AST 852 ALT 218 and alk phos 499 Troponins negative IMAGING: Computed tomography scan abdomen and pelvis severe hepatic steatosis. Cholecystectomy. Anna-en-Y. No obstruction of the jejunostomy CTA of the chest no acute PE ASSESSMENT: 1. Abdominal pain with nausea and vomiting 2. Episodes of black stools and emesis with streaks of blood 3. History of Anna-en-Y 4. History of erosive esophagitis 5. History of colon polyps 6. Elevated liver enzymes 7. History of alcohol abuse PLAN: -Patient scheduled for EGD and colonoscopy with Dr. De La O -Start nulightly bowel prep -Clear liquid diet today -Nothing by mouth after midnight -Continue Protonix to 40 mg IV daily -Continue IV fluids -Continue supportive care Thank you for this consultation Physician Campaign Developer note has been reviewed by physician. Signing provider agrees with the documented findings, assessment, and plan of care. Past Medical History Past Medical History: Asthma, GERD/Reflux, Osteoarthritis (OA) Additional Past Medical History / Comment(s): planter fasciitis, ulcer, hx hiatal hernia, SOB and "heart rate goes up", "abdomen is swollen and I feel pressure and have diff having a bowel movement", urinary urgency, current thrush, long COVID History of Any Multi-Drug Resistant Organisms: None Reported Past Surgical History: Bariatric Surgery, Cholecystectomy, Hernia Repair Additional Past Surgical History / Comment(s): EGD, surgery to repair hiatal hernia and anna-en-y, colonoscopy. LYSIS OF ADHESIONS/LAP JACQUELINE 04/14/20 Past Anesthesia/Blood Transfusion Reactions: Previous Problems w/ Anesthesia, Motion Sickness Additional Past Anesthesia/Blood Transfusion Reaction / Comm: headache post op, 'I have panic attacks before and after surgery" Past Psychological History: Anxiety Smoking Status: Former smoker Past Alcohol Use History: Abuse Past Drug Use History: Marijuana - Past Family History Mother Family Medical History: No Reported History Medications and Allergies Home Medications Medication Instructions Recorded Confirmed Type Omeprazole [PriLOSEC] 40 mg PO DAILY #30 cap 01/21/20 03/11/23 Rx Ergocalciferol [Vitamin D2 (1250 1,250 mcg PO TU 03/05/23 03/11/23 History Mcg = 90701 Iu)] hydrOXYzine HCL [Atarax] 50 mg PO TID PRN 03/05/23 03/11/23 History Ferrous Sulfate [Feosol] 325 mg PO DAILY 03/11/23 03/11/23 History L.acidoph,Paracasei, B.lactis 1 cap PO DAILY 03/11/23 03/11/23 History [Probiotic] Multivitamins, Thera [Multivitamin 1 tab PO DAILY 03/11/23 03/11/23 History (formulary)] Zinc Gluconate [Zinc] 50 mg PO DAILY 03/11/23 03/11/23 History Allergies Allergy/AdvReac Type Severity Reaction Status Date / Time azithromycin AdvReac "FELT LIKE Verified 03/11/23 22:25 [From Zithromax Z-Martinez] MY BODY WAS ALL BRUISED AND SENSITIVE" Surgical - Exam Vital Signs Temp Pulse Resp BP Pulse Ox 98.7 F 142 H 24 136/93 95 03/11/23 17:43 03/11/23 17:43 03/11/23 17:43 03/11/23 17:43 03/11/23 17:43 Results - Labs 03/11/23 20:04 03/11/23 20:04 Abnormal Lab Results - Last 24 Hours (Table) 03/11/23 03/11/23 Range/Units 20:04 20:04 RDW 16.0 H (11.5-15.5) % Sodium 131 L (137-145) mmol/L Chloride 96 L (98-107) mmol/L Glucose 113 H (74-99) mg/dL Total Bilirubin 1.9 H (0.2-1.3) mg/dL AST 852 H (14-36) U/L ALT 218 H (4-34) U/L Alkaline Phosphatase 499 H (38-126) U/L Diabetes panel 03/11/23 Range/Units 20:04 Sodium 131 L (137-145) mmol/L Potassium 4.0 (3.5-5.1) mmol/L Chloride 96 L (98-107) mmol/L Carbon Dioxide 26 (22-30) mmol/L BUN 13 (7-17) mg/dL Creatinine 0.84 (0.52-1.04) mg/dL Glucose 113 H (74-99) mg/dL Calcium 8.8 (8.4-10.2) mg/dL AST 852 H (14-36) U/L ALT 218 H (4-34) U/L Alkaline Phosphatase 499 H (38-126) U/L Total Protein 6.8 (6.3-8.2) g/dL Albumin 3.5 (3.5-5.0) g/dL Thyroid panel 03/11/23 Range/Units 21:55 TSH 3.440 (0.465-4.680) mIU/L Calcium panel 03/11/23 03/11/23 Range/Units 20:04 21:55 Calcium 8.8 (8.4-10.2) mg/dL Phosphorus 3.0 (2.5-4.5) mg/dL Albumin 3.5 (3.5-5.0) g/dL Pituitary panel 03/11/23 03/11/23 Range/Units 20:04 21:55 Sodium 131 L (137-145) mmol/L Potassium 4.0 (3.5-5.1) mmol/L Chloride 96 L (98-107) mmol/L Carbon Dioxide 26 (22-30) mmol/L BUN 13 (7-17) mg/dL Creatinine 0.84 (0.52-1.04) mg/dL Glucose 113 H (74-99) mg/dL Calcium 8.8 (8.4-10.2) mg/dL TSH 3.440 (0.465-4.680) mIU/L Adrenal panel 03/11/23 Range/Units 20:04 Sodium 131 L (137-145) mmol/L Potassium 4.0 (3.5-5.1) mmol/L Chloride 96 L (98-107) mmol/L Carbon Dioxide 26 (22-30) mmol/L BUN 13 (7-17) mg/dL Creatinine 0.84 (0.52-1.04) mg/dL Glucose 113 H (74-99) mg/dL Calcium 8.8 (8.4-10.2) mg/dL Total Bilirubin 1.9 H (0.2-1.3) mg/dL AST 852 H (14-36) U/L ALT 218 H (4-34) U/L Alkaline Phosphatase 499 H (38-126) U/L Total Protein 6.8 (6.3-8.2) g/dL Albumin 3.5 (3.5-5.0) g/dL
[2023-03-12] MEDS ORDERED: LACTULOSE 20 GM/30 ML CUP PO PRN (12:27)
[2023-03-12] MEDS ORDERED: MELATONIN 3 MG TABLET PO PRN (12:27)
[2023-03-12] MEDS ORDERED: CALCIUM CARBONATE 500 MG CHEWABLE PO PRN (12:27)
[2023-03-12] MEDS ORDERED: traZODone HCL 50 MG TAB PO PRN (13:38)
--- NOTE | 2023-03-12 13:40 | P.CNPUL ---
History of Present Illness Consult date: 03/12/23 Reason for consult: dyspnea History of present illness: This is a 42-year-old female patient post bariatric surgery and the patient undergone a previous Anna-en-Y gastric bypass surgery with successful weight loss. She came into the hospital because of abdominal pain and nausea and emesis. She also states that she was having black tarry stools and this has been going on for the past several days. She complained of abdominal pain and bloating. This is part of her symptoms. In fact, she has a long list of symptoms. In addition to stomach pain, she has been complaining of shortness of breath, shaking and jerking, throwing up, stool stays in her mouth, spitting up blood, chest pain, sweating, blurred vision, confusion, fatigue, episodes of passing out, feeling overall weak and tired, having difficulty with mobility and gait, balance, hard to sleep, dizzy, heart is racing and sweating. She believes that some of those symptoms started following her Covid 19 infection for which she was hospitalized and [facility] back in November 2022. She also has history of bronchial asthma. No maintenance respiratory medications or i nhalers. She has taken steroids during her Covid 19 infection and subsequently she was taken off steroids. Her hemoglobin currently is at 14. White cell count of 5.1. Sodium is at 131, creatinine 0.8, bilirubin is at 1.9 with an AST of 852 ALT of 218 and alkaline phosphatase of 499. Troponins are negative. The CRP is less than 0.5. TSH is 3.4. Normal coagulation profile. Normal white cell count of 5.1. CAT scan of the chest is essentially within normal limits. CAT scan of the abdomen and pelvis showing severe hepatic steatosis, previous cholecystectomy and Anna-en-Y gastric bypass surgery. Otherwise no acute abnormalities noted. Review of Systems review of system was done and the positive findings were mentioned above history of present illness Past Medical History Past Medical History: Asthma, GERD/Reflux, Osteoarthritis (OA) Additional Past Medical History / Comment(s): planter fasciitis, ulcer, hx hiatal hernia, SOB and "heart rate goes up", "abdomen is swollen and I feel pres sure and have diff having a bowel movement", urinary urgency, current thrush, long COVID History of Any Multi-Drug Resistant Organisms: None Reported Past Surgical History: Bariatric Surgery, Cholecystectomy, Hernia Repair Additional Past Surgical History / Comment(s): EGD, surgery to repair hiatal hernia and anna-en-y, colonoscopy. LYSIS OF ADHESIONS/LAP JACQUELINE 04/14/20 Past Anesthesia/Blood Transfusion Reactions: Previous Problems w/ Anesthesia, Motion Sickness Additional Past Anesthesia/Blood Transfusion Reaction / Comment(s): headache post op, 'I have panic attacks before and after surgery" Past Psychological History: Anxiety Smoking Status: Former smoker Past Alcohol Use History: Abuse Past Drug Use History: Marijuana - Past Family History Mother Family Medical History: No Reported History Medications and Allergies Home Medications Medication Instructions Recorded Confirmed Type Omeprazole [PriLOSEC] 40 mg PO DAILY #30 cap 01/21/20 03/11/23 Rx Ergocalciferol [Vitamin D2 (1250 1,250 mcg PO TU 03/05/23 03/11/23 History Mcg = 56604 Iu)] hydrOXYzine HCL [Atarax] 50 mg PO TID PRN 03/05/23 03/11/23 History Ferrous Sulfate [Feosol] 325 mg PO DAILY 03/11/23 03/11/23 History L.acidoph,Paracasei, B.lactis 1 cap PO DAILY 03/11/23 03/11/23 History [Probiotic] Multivitamins, Thera [Multivitamin 1 tab PO DAILY 03/11/23 03/11/23 History (formulary)] Zinc Gluconate [Zinc] 50 mg PO DAILY 03/11/23 03/11/23 History Allergies Allergy/AdvReac Type Severity Reaction Status Date / Time azithromycin AdvReac "FELT LIKE Verified 03/11/23 22:25 [From Zithromax Z-Martinez] MY BODY WAS ALL BRUISED AND SENSITIVE" Physical Exam Vitals: Vital Signs Temp Pulse Resp BP Pulse Ox 03/12/23 11:00 81 18 115/81 97 03/12/23 07:50 75 19 120/75 97 03/12/23 02:31 80 16 114/88 91 L 03/11/23 23:10 71 118/66 95 03/11/23 23:00 86 19 127/83 03/11/23 22:00 81 18 151/81 98 03/11/23 21:50 87 151/81 97 03/11/23 21:00 97 19 131/95 97 07/31/23 17:43 98.7 F 142 H 24 136/93 95 Intake and Output 03/11/23 03/12/23 03/12/23 22:59 06:59 14:59 Other: Weight 88.451 kg The patient appeared well nourished and normally developed. Vital signs as documented. Head exam is unremarkable. No scleral icterus or corneal arcus noted. Neck is without jugular venous distension, thyromegaly, or carotid bruits. Carotid upstrokes are brisk bilaterally. Lungs are clear to auscultation and percussion. Cardiac exam reveals the PMI to be normally sized and situated. Rhythm is regular. First and second heart sounds normal. No murmurs, rubs or gallops. Abdominal exam reveals normal bowel sounds, no masses, no organomegaly and no aortic enlargement. Extremities are nonedematous and both femoral and pedal pulses are normal.Examination of the skin revealed no evidence of significant rashes, suspicious appearing nevi or other concerning lesions.Neurologically, the patient is awake and alert and the patient does not have any focal neurological deficit. Cranial nerves are essentially intact. Results - Laboratory Findings CBC and BMP: 03/11/23 20:04 03/11/23 20:04 PT/INR, D-dimer PT 10.5 sec (9.0-12.0) 03/11/23 20:04 INR 1.0 (<1.2) 03/11/23 20:04 Abnormal lab findings: Abnormal Labs 03/11/23 03/11/23 20:04 20:04 RDW 16.0 H Sodium 131 L Chloride 96 L Glucose 113 H Total Bilirubin 1.9 H AST 852 H ALT 218 H Alkaline Phosphatase 499 H - Diagnostic Findings CT scan - chest: image reviewed Assessment and Plan Plan: Shortness of breath, nonspecific, subjective feeling of breathlessness. Examination is within normal limits. Oxygenation is within normal limits. CT angiogram is within normal limits. Cardiac enzymes are within normal limits. I am doubting the diagnosis of bronchial asthma in this patient. Consider anxiety. Consider post Covid 19 syndrome History of morbid obesity with a previous Anna-en-Y gastric bypass surgery Abdominal pain Suspected GI bleed with black tarry stool, consider possibility of an upper GI bleed History of Covid 19 infection Hepatic steatosis, abnormal LFTs Previous history of alcohol abuse Plan Respiratory status is stable Complete GI workup including EGD and colonoscopy and general surgery has been consulted Consult psychiatry regarding possibility of increased anxiety/generalized anxiety disorder as the patient's symptoms are rather multitude and nonspecific We'll be awaiting recommendations from other specialists including neurology and cardiology. Nothing much can be added from the pulmonary standpoint. Her CAT scan of the chest is clear. No evidence of any pulmonary fibrosis post Covid 19 infection. No active signs of asthma activity. No evidence of any DVT or pulmonary embolism. No evidence of any pneumonia. Monitor hemoglobin We'll follow
--- NOTE | 2023-03-12 13:48 | P.CN ---
Psychiatric Consult - . Consult date: 03/12/23 Consult:: 03/12/23 12:49 IDENTIFYING DATA: This patient is a [42-year-old female], currently lives with her , has 2 kids, collects SSD. REASON FOR REFERRAL: Psychiatry was consulted for []"anxiety" HISTORY OF PRESENT ILLNESS: The patient presented to the hospital yesterday on 03/11 having various and multiple nonspecific complaints. Patient was endorsing nausea or vomiting, abdominal pain and weakness anxiety and tremors. Patient made statements about believing that her health is deteriorating. Patient's AST and ALT are significantly elevated at a 52 and 218. Her total bilirubin was also having elevated. Patient is being followed by surgery and will have a endoscopy. Patient was seen in bed and appears to be anxious, she was agreeable to the interview by report writer. States that she is feeling more depressed and anx ious since having covid in november of this year. She believes that she has long haul covid. She was fairly preoccupied with various physical complaints. States she has a history of depression and anxiety however it has gotten worse since November. States that she was previously on Celexa and also Lexapro and did not tolerate them well. She claims that she stopped taking her Celexa about 6 days ago. States that her sleep and appetite are pair are poor. States that she is willing to try other psychiatric medications . At this time patient denies any suicidal or homical ideations, intent or plan. Patient denies any auditory, visual hallucinations and denies any paranoia or delusions. Patients admits to using cannabis occasionally, denies any other rec drug use. PAST PSYCHIATRIC HISTORY: Patient has a a history of depression and anxiety. Patient stopped taking her Celexa about 6 days ago, was previously on Lexapro and did not tolerate it well. States that she was taking Vistaril when necessary for anxiety. [Patient denies any previous psychiatric hospitalizations.] She claims that she does not have a outpatient psychiatrist however does have 2 therapists. Claims that when she was much younger she overdosed on medications. Past Medical History: Asthma, GERD/Reflux, Osteoarthritis (OA) Additional Past Medical History / Comment(s): planter fasciitis, ulcer, hx hiatal hernia, SOB and "heart rate goes up", "abdomen is swollen and I feel pressure and have diff having a bowel movement", urinary urgency, current thrush, long COVID History of Any Multi-Drug Resistant Organisms: None Reported Past Surgical History: Bariatric Surgery, Cholecystectomy, Hernia Repair Additional Past Surgical History / Comment(s): EGD, surgery to repair hiatal hernia and aretha-en-y, colonoscopy. LYSIS OF ADHESIONS/LAP JACQUELINE 04/14/20 Past Anesthesia/Blood Transfusion Reactions: Previous Problems w/ Anesthesia, Motion Sickness Additional Past Anesthesia/Blood Transfusion Reaction / Comment(s): headache post op, 'I have panic attacks before and after surgery" Past Psychological History: Anxiety Smoking Status: Former smoker Past Alcohol Use History: Abuse Past Drug Use History: Marijuana ALLERGIES: as per EMR. CHEMICAL DEPENDENCY HISTORY: as per HPI. FAMILY PSYCHIATRIC/SUBSTANCE USE HISTORY: Claims that her biological father and sister both have bipolar, claims that her mother suffers from depression. SOCIAL HISTORY: Patient was born and raised in [place] and also [place]. States that she completed high school and did some college classes. Claims that she is currently collecting SSD, she has 2 kids, she lives with her . She denies any legal history. MENTAL STATUS EXAM: General Appearance: Patient appears to be mildly overweight, stated age is alert, pleasant, and attempts to be cooperative. Appears to be anxious. Patient appears to have [fair] hygiene and grooming wearing hospital gown with [fair] eye contact. Behavior: [Patient is calmly lying in bed without any agitated behavior.] Appears to be anxious. Speech: Patient's speech is fluent and nonpressured. Hesitant at times Mood/Affect: Patient reports their mood is "[depressed and anxious]", affect is congruent Suicidality/Homicidality: Patient denies having any suicidal or homicidal ideation intent or plan. Perceptions: Patient denies any visual hallucinations [and denies any auditory h allucinations] Though content/process: There is no evidence of any delusional thought content and thought process is linear and goal-directed. Somatically preoccupied. Memory and concentration: AOX3, grossly intact for the purposes of this session Judgment and insight: [poor] IMPRESSIONS: Major depressive disorder, mild anxiety disorder NOS cannabis use disorder mild abuse PLAN: -At this time patient DOES NOT meet criteria for inpatient psychiatric admission. -Would recommend the following medication changes/additions: Start Cymbalta 30 mg daily for mood/anxiety, trazodone 50 mg scheduled daily at bedtime +50 mg when necessary for insomnia. Vistaril 25 mg every 6 hours when necessary for anxiety. [-print binding worker to provide patient with outpatient mental health/psychiatry resources for appropriate follow up upon discharge] [-Laboratory Technical Specialist spoke with patient about substance abuse and the harmful effects on medical and mental health, patient verbally understood and agreed.] [-Communicated plan to patient's nurse] -Will continue to follow along tomorrow. -Please contact with any questions. 03/12/23 13:40 03/12/23 13:47
[2023-03-12] MEDS: PANTOPRAZOLE 40 MG/10 ML VIAL IVP SCH (14:17)
[2023-03-12] MEDS: DULoxetine HCL 30 MG CAPSULE.DR PO SCH (15:31)
--- NOTE | 2023-03-12 16:37 | P.HPIM ---
History of Present Illness H&P Date: 03/12/23 Chief Complaint: Multiple symptoms This is a 42-year-old patient, follows with Dr. Rolanda Ovalle. Patient presents with multiple symptoms. Patient has known gastric bypass surg [place] history for by Dr. Duran. Patient developed: November of this year. Pain is with long-standing drinking alcohol for many years. With some periods of short breaks. Patient states that when she eats she gets nauseated. And also throws a once a day. Also has anywhere from 3-4 bowel movements a day. The bowel movements smelled really bad. Oftentimes changing color. Patient also notices that she sometimes gets short of breath. With activity. Last Saturday is also been having chest pain. Other constant. No radiation. Worse with activity. Also complains of episodes of dizziness and sometimes forgetful and confused. She thinks she's been told she also has some long covered symptoms. Patient had not taken the COVID-19 vaccine. Patient is also to admission for the same at [facility]. Patient also has some dark stools. Questionable blood in the stools. Does feel sleepy and tired. Review of systems: GEN.: Tired, decreased appetite EYES: None HEENT: None NECK: None RESPIRATORY: As above CARDIOVASCULAR: As above GASTROINTESTINAL: As above GENITOURINARY: None MUSCULOSKELETAL: None LYMPHATICS: None HEMATOLOGICAL: None PSYCHIATRY: None NEUROLOGICAL: None Past medical history to include: Asthma, GERD, prostatitis, ulcer, hiatal hernia, long COVID. Aretha-en-Y gastric bypass surgery. Anxiety. Social history: . . Was trying excessive alcohol up until about 4 months ago. No significant history of smoking. Rarely marijuana. Works in a store Physical examination: VITAL SIGNS: 98.7, 97, 19, 131/95, 97% room air GENERAL: BMI 31.5, declining with awake tired. EYES: [Pupils equal. Conjunctiva yellow l. HEENT: External appearance of nose and ears normal, oral cavity grossly normal. NECK: JVD not raised; masses not palpable. HEART: First and second heart sounds are normal; no edema. LUNGS: Respiratory rate normal; clear to auscultation. ABDOMEN: Soft, nontender, liver spleen not palpable, no masses palpable. PSYCH: Alert and oriented x3; mood and affect tiredl. MUSCULOSKELETAL:No Clubbing/cyanosis;muscles-grossly intact NEUROLOGICAL: Cranial nerves grossly intact; no facial asymmetry, power and sensation grossly intact. LYMPHATICS: No lymph nodes palpable in the axilla and neck INVESTIGATIONS, reviewed in the clinical context: White count 5.1 hemoglobin 14 platelets are 83 sodium 131 potassium 4 BUN 13 creatinine 0.84 Total bilirubin 1.9 AST 852 ALT 218 alkaline phosphatase 499 Troponin I 2 less than 0.012. CRP less than 0.5 TSH 3.4 EKG tracing personally reviewed by me-normal sinus rhythm. Rate 98 Chest x-ray film personally reviewed by me-some hyperinflation CT angiogram of the chest with IV contrast: Negative for PE. Severe hepatic steatosis. Aretha-en-Y gastric bypass CT abdomen and pelvis: Severe hepatic steatosis. Cholecystectomy. Aretha-en-Y gastric bypass. Assessment plan: -Acute GI bleed with dark stools. History of alcoholism in the past. Patient also been having abdominal pain. History of Aretha-en-Y gastric bypass surgery. Follows with Dr. Duran. Consulted. PPI. Clear liquids. -Severely elevated liver enzymes in a patient with history of alcoholism up to December of this year. Acute hepatitis panel. Liver ultrasound. Consult GI. -Patient does complain of intermittent shortness of breath. History of COVID in November of this year. Consult pulmonary. Will need PFTs outpatient. -Anterior chest wall pain. Some relation to activity. Troponin negative. 2-D echo. Consult cardiology. -Intermittent episodes of confusion and dizziness. MRI brain with and without contrast. EEG. Consult neurology. -Anxiety Await input from psychiatry. -GERD PPI -Alcoholic liver disease Liver ultrasound -Full code Clear liquids. Late EGD colonoscopy. Multiple consultations. Care was disc ussed at length with the patient. Past Medical History Past Medical History: Asthma, GERD/Reflux, Osteoarthritis (OA) Additional Past Medical History / Comment(s): planter fasciitis, ulcer, hx hiatal hernia, SOB and "heart rate goes up", "abdomen is swollen and I feel pressure and have diff having a bowel movement", urinary urgency, current thrush, long COVID History of Any Multi-Drug Resistant Organisms: None Reported Past Surgical History: Bariatric Surgery, Cholecystectomy, Hernia Repair Additional Past Surgical History / Comment(s): EGD, surgery to repair hiatal hernia and aretha-en-y, colonoscopy. LYSIS OF ADHESIONS/LAP JACQUELINE 04/14/20 Past Anesthesia/Blood Transfusion Reactions: Previous Problems w/ Anesthesia, Motion Sickness Additional Past Anesthesia/Blood Transfusion Reaction / Comment(s): headache post op, 'I have panic attacks before and after surgery" Past Psychological History: Anxiety Smoking Status: Former smoker Past Alcohol Use History: Abuse Past Drug Use History: Marijuana - Past Family History Mother Family Medical History: No Reported History Medications and Allergies Home Medications Medication Instructions Recorded Confirmed Type Omeprazole [PriLOSEC] 40 mg PO DAILY #30 cap 01/21/20 03/11/23 Rx Ergocalciferol [Vitamin D2 (1250 1,250 mcg PO TU 03/05/23 03/11/23 History Mcg = 09433 Iu)] hydrOXYzine HCL [Atarax] 50 mg PO TID PRN 03/05/23 03/11/23 History Ferrous Sulfate [Feosol] 325 mg PO DAILY 03/11/23 03/11/23 History L.acidoph,Paracasei, B.lactis 1 cap PO DAILY 03/11/23 03/11/23 History [Probiotic] Multivitamins, Thera [Multivitamin 1 tab PO DAILY 03/11/23 03/11/23 History (formulary)] Zinc Gluconate [Zinc] 50 mg PO DAILY 03/11/23 03/11/23 History Allergies Allergy/AdvReac Type Severity Reaction Status Date / Time azithromycin AdvReac "FELT LIKE Verified 03/11/23 22:25 [From Zithromax Z-Martinez] MY BODY WAS ALL BRUISED AND SENSITIVE" Physical Exam Vitals: Vital Signs Temp Pulse Resp BP Pulse Ox 03/12/23 15:03 97.8 F 85 17 116/87 98 03/12/23 11:00 81 18 115/81 97 03/12/23 07:50 75 19 120/75 97 03/12/23 02:31 80 16 114/88 91 L 03/11/23 23:10 71 118/66 95 03/11/23 23:00 86 19 127/83 03/11/23 22:00 81 18 151/81 98 03/11/23 21:50 87 151/81 97 03/11/23 21:00 97 19 131/95 97 03/11/23 17:43 98.7 F 142 H 24 136/93 95 Results CBC & Chem 7: 03/11/23 20:04 03/11/23 20:04 Labs: Abnormal Lab Results - Last 24 Hours (Table) 03/11/23 03/11/23 Range/Units 20:04 20:04 RDW 16.0 H (11.5-15.5) % Sodium 131 L (137-145) mmol/L Chloride 96 L (98-107) mmol/L Glucose 113 H (74-99) mg/dL Total Bilirubin 1.9 H (0.2-1.3) mg/dL AST 852 H (14-36) U/L ALT 218 H (4-34) U/L Alkaline Phosphatase 499 H (38-126) U/L
--- NOTE | 2023-03-12 18:29 | US ---
EXAMINATION TYPE: US abdomen limited DATE OF EXAM: 03/12/2023 COMPARISON: 10 pelvis 03/11/2023, gallbladder ultrasound 03/07/2020 CLINICAL INDICATION: Female, 42 years old with history of Elevation of liver enzymes; Elevated liver enzymes, abdominal pain, nausea/vomiting, cholecystectomy TECHNIQUE: Multiple sonographic images of the right upper quadrant are obtained. FINDINGS: EXAM MEASUREMENTS: Liver Length: 18.5 cm Gallbladder Wall: Surgically absent Right Kidney: 12.0 x 4.8 x 5.4 cm CRITICAL CARE UNIT MANAGER NOTES: Technical limitations due to patient's body habitus and large amount of overlyin g bowel content Pancreas: Obscured by bowel gas Liver: enlarged, unable to penetrate, attenuating, heterogeneous Gallbladder: Surgically absent CBD: Obscured by overlying bowel gas Right Kidney: no evidence of hydronephrosis Common bile duct is a prescription overlying bowel gas. Gallbladder is surgically absent. Right kidne y is unremarkable without evidence of hydronephrosis, shadowing calculi, or solid mass. Pancreas is o bscured by overlying bowel gas. The liver is enlarged and heterogenous with increased attenuation. Di fficult to penetrate. This appearance limits evaluation for intrahepatic masses. No gross evidence of intrahepatic biliary ductal dilatation, cystic structures, or solid masses within these limitations. IMPRESSION: Limited examination due to patient's body habitus and overlying bowel gas. 1. No ultrasound evidence for acute process. 2. Severe hepatic steatosis.
[2023-03-12] MEDS: ACETAMINOPHEN TAB 325 MG TAB PO PRN (20:43)
[2023-03-12] MEDS: hydrOXYzine pamoate 25 MG CAP PO PRN (20:43)
[2023-03-12] MEDS ORDERED: traZODone HCL 50 MG TAB PO SCH (21:00)
[2023-03-12 22:47] LABS: Hepatitis A Antibody IgM Nonreactive; Hepatitis B Core IgM Nonreactive; Hepatitis B Surface Antigen Nonreactive; Hepatitis C IgG Antibody Nonreactive
[2023-03-13] MEDS: SODIUM CHLORIDE 0.9% 1,000 ML IV SCH ×3 (04:13→21:25)
--- NOTE | 2023-03-13 07:18 | CA ---
Transthoracic Echo Report Name: Chiquita Kennedy Age: 42 Gender: F : 1980 Exam Date: 03/12/2023 13:43 Exam Location: [facility] Ht (in): 66 Wt (lb): 195 Ordering Physician: Jesús Stockton MD Attending/Referring Phys: Community Development Manager Juan Mcclelland Procedure CPT: Indications: Chest Pain Cardiac Hx: Technical Quality: Fair Contrast 1: Total Dose (mL): Contrast 2: Total Dose (mL): MEASUREMENTS (Male / Female) Normal Values 2D ECHO LV Diastolic Diameter PLAX 4.4 cm 4.2 - 5.9 / 3.9 - 5.3 cm LV Systolic Diameter PLAX 2.9 cm IVS Diastolic Thickness 0.9 cm 0.6 - 1.0 / 0.6 - 0.9 cm LVPW Diastolic Thickness 1.1 cm 0.6 - 1.0 / 0.6 - 0.9 cm LV Relative Wall Thickness 0.5 RV Internal Dim ED PLAX 2.8 cm LVOT Diameter 2.1 cm Aortic Root Diameter 3.2 cm LA Systolic Diameter LX 3.2 cm 3.0 - 4.0 / 2.7 - 3.8 cm LV Diastolic Volume MOD BP 75.8 cm??? 67 - 155 / 56 - 104 cm??? LV Systolic Volume MOD BP 32.0 cm??? 22 - 58 / 19 - 49 cm??? LV Ejection Fraction MOD BP 57.8 % >= 55 % LV Diastolic Volume MOD 4C 77.2 cm??? LV Systolic Volume MOD 4C 28.3 cm??? LV Ejection Fraction MOD 4C 63.3 % LV Diastolic Length 4C 8.2 cm LV Systolic Length 4C 7.3 cm LV Diastolic Volume MOD 2C 73.0 cm??? LV Systolic Volume MOD 2C 35.5 cm??? LV Ejection Fraction MOD 2C 51.4 % LV Diastolic Length 2C 8.4 cm LV Systolic Length 2C 7.1 cm LA Volume 49.3 cm??? 18 - 58 / 22 - 52 cm??? Ascending Aorta Diameter 2.9 cm DOPPLER AV Peak Velocity 107.6 cm/s AV Peak Gradient 4.6 mmHg LVOT Peak Velocity 103.0 cm/s LVOT Peak Gradient 4.2 mmHg AV Area Cont Eq pk 3.3 cm??? MV Peak Velocity 72.3 cm/s MV Peak Gradient 2.1 mmHg MV Mean Velocity 38.8 cm/s MV Mean Gradient 0.7 mmHg MV Velocity Time Integral 22.3 cm MR Peak Velocity 330.2 cm/s MR Peak Gradient 43.6 mmHg Mitral E Point Velocity 67.8 cm/s Mitral A Point Velocity 53.3 cm/s Mitral E to A Ratio 1.3 MV Deceleration Time 174.8 ms MV E' Velocity 7.6 cm/s Mitral E to MV E' Ratio 8.9 TR Peak Velocity 167.2 cm/s TR Peak Gradient 11.2 mmHg Right Ventricular Systolic Press 16.3 mmHg PV Peak Velocity 103.3 cm/s PV Peak Gradient 4.3 mmHg FINDINGS Left Ventricle Normal LV size and wall thickness.left ventricular ejection fraction is estimated at 55-60 %.normal left ventricular wall motion. Normal left ventricular diastolic filling pattern. Right Ventricle Normal right ventricular size. RVSP= 17mmhg. Right Atrium Normal right atrial size. Left Atrium Normal left atrial size. LA Volume index= 25ml/m2 Mitral Valve Structurally normal mitral valve. Trace MR. Aortic Valve Trileaflet aortic valve. No aortic valve stenosis or regurgitation. Tricuspid Valve Structurally normal tricuspid valve. Mild TR. Pulmonic Valve Pulmonic valve not well visualized. No pulmonic regurgitation. Pericardium Normal pericardium. Aorta Normal size aortic root and proximal ascending aorta. CONCLUSIONS 1. Normal left ventricle size and systolic function 2. Mild tricuspid with trace mitral regurgitation Previewed by: Dr. Caro Dave MD (Electronically Signed) Final Date: 13 March 2023 06:59
[2023-03-13] MEDS: LACTOBACILLUS ACIDOPHILUS/PECT 1 EACH CAPSULE PO SCH (08:52)
[2023-03-13] MEDS: MULTIVITAMINS, THERA 1 EACH TAB PO SCH (08:53)
[2023-03-13] MEDS: THIAMINE 100 MG TAB PO SCH (08:53)
--- NOTE | 2023-03-13 09:54 | P.CRDCN ---
History of Present Illness History of present illness: HISTORY OF PRESENT ILLNESS: This is a 42-year-old female with a past medical history significant for alcohol abuse, asthma, palpitations, Covid, and anxiety. 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 We have been asked to see the patient in consultation for chest pain. Patient examined at the bedside. The patient presented to the hospital with a chief complaint of chest pain and abdominal pain. She states she has been having abdominal pain for at least the past month. She states that she began having chest pain on and then it went away over the weekend. She states the pain came back on Saturday and felt like an aching sensation with occasional sharp pains. She states the pain was worse with movement or sitting in certain positions. She reports occasional dizziness and states that she passed out yesterday and twice last week. She reports having occasional palpitations and shortness of breath when walking. The patient also reports she was in the emergency room last week for chest pain and was discharged home. At that time it was noted that the patient reported she was drinking heavily. The patient was evaluated by general surgery this admission and is scheduled for EGD and colonoscopy today. * EKG reveals sinus mechanism with no signs of acute ischemia * Chest xray negative for acute process * Laboratory data: WBC 5.1. Hemoglobin 14.0. Platelet count 183. Sodium 131. Potassium 4.0. BUN 13. Creatinine 0.4. AST 852. ALT 218. Troponin negative 2. TSH 3.440. * Current home cardiac medications include none * Echocardiogram completed revealing ejection fraction 55-60%, trace MR, mild TR REVIEW OF SYSTEMS: At the time of my exam: CONSTITUTIONAL: Denies fever or chills. HEENT: Denies blurred vision, vision changes, or eye pain. Denies hemoptysis CARDIOVASCULAR: Denies chest pain. Denies orthopnea. Denies PND. Denies palpitations RESPIRATORY: Denies shortness of breath. GASTROINTESTINAL: Reports abdominal pain. Denies nausea or vomiting. HEMATOLOGIC: Denies bleeding disorders. GENITOURINARY: Denies any blood in urine. SKIN: Denies pruitis. Denies rash. PHYSICAL EXAM: VITAL SIGNS: Reviewed. GENERAL: Well-developed in no acute distress. HEENT: Head is normocephalic. Pupils are equal, round. Sclerae anicteric. Mucous membranes of the mouth are moist. Neck supple. No JVD or thyromegaly LUNGS: Respirations even and unlabored. Lungs essentially clear to auscultation bilaterally. HEART: Regular rate and rhythm. S1 and S2 heard. ABDOMEN: Soft. Nondistended. Tenderness upon palpation EXTREMITIES: Normal range of motion. No clubbing or cyanosis. Peripheral pulses intact. No lower extremity edema NEUROLOGIC: Awake and alert. Oriented x 3. ASSESSMENT: Abdominal pain Chest pain, atypical, troponin negative 2 Transaminitis History of alcohol abuse Reported history of asthma Palpitations Anxiety History of Covid PLAN: An acute coronary event has been ruled out 2-D echo has been obtained and reviewed Patient scheduled for EGD and colonoscopy today with general surgery No further inpatient recommendations from a cardiology standpoint Patient may be discharged home from a cardiology perspective Nurse practitioner note has been reviewed by physician. Signing provider agrees with the documented findings, assessment, and plan of care. Past Medical History Past Medical History: Asthma, GERD/Reflux, Osteoarthritis (OA) Additional Past Medical History / Comment(s): planter fasciitis, ulcer, hx hiatal hernia, SOB and "heart rate goes up", "abdomen is swollen and I feel pressure and have diff having a bowel movement", urinary urgency, current thrush, long COVID History of Any Multi-Drug Resistant Organisms: None Reported Past Surgical History: Bariatric Surgery, Cholecystectomy, Hernia Repair Additional Past Surgical History / Comment(s): EGD, surgery to repair hiatal hernia and aretha-en-y, colonoscopy. LYSIS OF ADHESIONS/LAP JACQUELINE 04/14/20 Past Anesthesia/Blood Transfusion Reactions: Previous Problems w/ Anesthesia, Motion Sickness Additional Past Anesthesia/Blood Transfusion Reaction / Comment(s): headache post op, 'I have panic attacks before and after surgery" Past Psychological History: Anxiety Smoking Status: Former smoker Past Alcohol Use History: Abuse Past Drug Use History: Marijuana - Past Family History Mother Family Medical History: No Reported History Medications and Allergies Home Medications Medication Instructions Recorded Confirmed Type Omeprazole [PriLOSEC] 40 mg PO DAILY #30 cap 01/21/20 03/11/23 Rx Ergocalciferol [Vitamin D2 (1250 1,250 mcg PO TU 03/05/23 03/11/23 History Mcg = 65790 Iu)] hydrOXYzine HCL [Atarax] 50 mg PO TID PRN 03/05/23 03/11/23 History Ferrous Sulfate [Feosol] 325 mg PO DAILY 03/11/23 03/11/23 History L.acidoph,Paracasei, B.lactis 1 cap PO DAILY 03/11/23 03/11/23 History [Probiotic] Multivitamins, Thera [Multivitamin 1 tab PO DAILY 03/11/23 03/11/23 History (formulary)] Zinc Gluconate [Zinc] 50 mg PO DAILY 03/11/23 03/11/23 History Allergies Allergy/AdvReac Type Severity Reaction Status Date / Time azithromycin AdvReac "FELT LIKE Verified 03/11/23 22:25 [From Zithromax Z-Martinez] MY BODY WAS ALL BRUISED AND SENSITIVE" Physical Exam Vitals: Vital Signs Temp Pulse Pulse Resp BP BP Pulse Ox 03/13/23 03:55 97.5 F L 71 18 121/89 99 03/12/23 19:07 97.6 F 89 16 145/87 97 03/12/23 18:15 97.6 F 74 16 122/90 100 03/12/23 17:27 97.4 F L 70 16 139/63 99 03/12/23 15:03 97.8 F 85 17 116/87 98 03/12/23 11:00 81 18 115/81 97 Intake and Output 03/12/23 03/13/23 03/13/23 22:59 06:59 14:59 Other: # Voids 2 2 # Bowel Movements 3 2 Results 03/11/23 20:04 03/11/23 20:04 Current Medications Generic Name Dose Route Start Last Admin Trade Name Freq PRN Reason Stop Dose Admin Acetaminophen 650 mg 03/12/23 12:27 03/12/23 20:43 Acetaminophen Tab 325 Mg Tab PO 650 mg Q6HR PRN Administration Mild Pain or Fever > 100.5 Calcium Carbonate/Glycine 1,000 mg 03/12/23 12:27 Calcium Carbonate 500 Mg Chewable PO Q4HR PRN Dyspepsia Duloxetine HCl 30 mg 03/12/23 13:45 03/12/23 15:31 Duloxetine Hcl 30 Mg Capsule.Dr PO 30 mg DAILY ANGIE Administration Hydroxyzine Pamoate 25 mg 03/12/23 13:37 03/12/23 20:43 Hydroxyzine Pamoate 25 Mg Cap PO 25 mg Q6HR PRN Administration Anxiety Sodium Chloride 1,000 mls @ 130 mls/hr 03/11/23 22:00 03/13/23 04:13 Saline 0.9% IV 130 mls/hr .[id number] ANGIE Administration Lactobacillus Acidophilus 1 each 03/12/23 10:45 03/12/23 11:14 Lactobacillus Acidophilus/Pect 1 Each Capsule PO 1 each DAILY ANGIE Administration Lactulose 20 gm 03/12/23 12:27 Lactulose 20 Gm/30 Ml Cup PO DAILY PRN Constipation Multivitamins 1 each 03/12/23 10:45 03/12/23 11:13 Multivitamins, Thera 1 Each Tab PO 1 each DAILY ANGIE Administration Naloxone HCl 0.2 mg 03/11/23 23:20 Naloxone 0.4 Mg/Ml 1 Ml Vial IV Q2M PRN Opioid Reversal Ondansetron HCl 4 mg 03/11/23 23:20 Ondansetron 4 Mg/2 Ml Vial IVP Q8HR PRN Nausea And Vomiting Pantoprazole Sodium 40 mg 03/12/23 12:15 03/12/23 14:17 Pantoprazole 40 Mg/10 Ml Vial IVP 40 mg DAILY ANGIE Administration Thiamine HCl 100 mg 03/12/23 09:00 03/12/23 08:09 Thiamine 100 Mg Tab PO 100 mg DAILY ANGIE Administration Trazodone HCl 50 mg 03/12/23 21:00 03/12/23 20:23 Trazodone Hcl 50 Mg Tab PO 50 mg HS ANGIE Administration Trazodone HCl 50 mg 03/12/23 13:38 Trazodone Hcl 50 Mg Tab PO HS PRN Additional Insomnia Intake and Output 03/12/23 03/13/23 03/13/23 22:59 06:59 14:59 Other: # Voids 2 2 # Bowel Movements 3 2 03/11/23 20:04 03/11/23 20:04
[2023-03-13] MEDS: DULoxetine HCL 30 MG CAPSULE.DR PO SCH ×2 (10:37→21:24)
[2023-03-13] MEDS: ACETAMINOPHEN TAB 325 MG TAB PO PRN (10:47)
[2023-03-13] MEDS: PANTOPRAZOLE 40 MG/10 ML VIAL IVP SCH (10:48)
--- NOTE | 2023-03-13 11:32 | P.CNNES ---
History of Present Illness Consult date: 03/13/23 Requesting physician: Jesús Stockton Reason for Consult: dizziness History of Present Illness: This is a 6-year-old woman with head the COVID-19 in November 2022 who presented because of multiple problems but, he she's having abdominal pain with nausea vomiting. Neurology is consulted for dizziness. Patient stated that that she contracted the COVID-19 in November 2022 and she was not vaccinated she stated since to covert she's been having dizzy spells that intermittent and she had a hard time describing it to me. She's also stated that she's having the 3 episode of passing out and she stated that she feels dizzy and then all of a sudden she'll pass out lasting the for an hour to 3 hours. She did have urinary bowel incontinence with these episodes. Denied any tongue bite. She stated that she was seen passed out on her bed by her son but no jerk in of any extremities. She denies any history of seizures. She stated that prior to passing out that she'll feel a generalized weak fatigue and LCL passed out and s he denies a positional. She feels her memory and has been affected as since the her covert. She's been having generalized abdominal pain but mostly on the left side upper and lower with the daily nausea vomiting. She is to have significant alcohol use and stopped about a year ago. She denies any illicit drug use. She denies any history of stroke. Denies any focal weakness. Some of the workup during his hospital visit consisted of: She is afebrile so far CBC with differential is RDW 16 otherwise rest is unremarkable AST of 852 and ALT of 218 CRP is normal TSH is 3.440 Calcium is 8.8, magnesium is 1.8, sodium is 131 2-D echo was reported as normal left ventricular size and systolic function. Mild tricuspid with trace mild regurgitation. Abdominal ultrasound shows severe hepatic stenosis but otherwise is limited due to her body habitus and overlying bowel gas. Review of Systems Review of system: The 12 point system was reviewed and apparent positive and negative per HPI. Past Medical History Past Medical History: Asthma, GERD/Reflux, Osteoarthritis (OA) Additional Past Medical History / Comment(s): planter fasciitis, ulcer, hx hiatal hernia, SOB and "heart rate goes up", "abdomen is swollen and I feel pressure and have diff having a bowel movement", urinary urgency, current thrush, long COVID History of Any Multi-Drug Resistant Organisms: None Reported Past Surgical History: Bariatric Surgery, Cholecystectomy, Hernia Repair Additional Past Surgical History / Comment(s): EGD, surgery to repair hiatal hernia and aretha-en-y, colonoscopy. LYSIS OF ADHESIONS/LAP JACQUELINE 04/14/20 Past Anesthesia/Blood Transfusion Reactions: Previous Problems w/ Anesthesia, Motion Sickness Additional Past Anesthesia/Blood Transfusion Reaction / Comment(s): headache post op, 'I have panic attacks before and after surgery" Past Psychological History: Anxiety Smoking Status: Former smoker Past Alcohol Use History: Abuse Past Drug Use History: Marijuana - Past Family History Mother Family Medical History: No Reported History Medications and Allergies Home Medications Medication Instructions Recorded Confirmed Type Omeprazole [PriLOSEC] 40 mg PO DAILY #30 cap 01/21/20 03/11/23 Rx Ergocalciferol [Vitamin D2 (1250 1,250 mcg PO TU 03/05/23 03/11/23 History Mcg = 89726 Iu)] hydrOXYzine HCL [Atarax] 50 mg PO TID PRN 03/05/23 03/11/23 History Ferrous Sulfate [Feosol] 325 mg PO DAILY 03/11/23 03/11/23 History L.acidoph,Paracasei, B.lactis 1 cap PO DAILY 03/11/23 03/11/23 History [Probiotic] Multivitamins, Thera [Multivitamin 1 tab PO DAILY 03/11/23 03/11/23 History (formulary)] Zinc Gluconate [Zinc] 50 mg PO DAILY 03/11/23 03/11/23 History Allergies Allergy/AdvReac Type Severity Reaction Status Date / Time azithromycin AdvReac "FELT LIKE Verified 03/11/23 22:25 [From Zithromax Z-Martinez] MY BODY WAS ALL BRUISED AND SENSITIVE" Physical Examination - Vital Signs Vital Signs: Vital Signs Temp Pulse Pulse Resp BP BP Pulse Ox 03/13/23 07:00 97.9 F 70 16 123/80 97 03/13/23 03:55 97.5 F L 71 18 121/89 99 03/12/23 19:07 97.6 F 89 16 145/87 97 03/12/23 18:15 97.6 F 74 16 122/90 100 03/12/23 17:27 97.4 F L 70 16 139/63 99 03/12/23 15:03 97.8 F 85 17 116/87 98 Intake and Output 03/12/23 03/13/23 03/13/23 22:59 06:59 14:59 Other: # Voids 2 2 # Bowel Movements 3 2 GENERAL: The patient is lying in bed and is not in acute distress. NEUROLOGICAL: Higher mental function: The patient is awake, alert, oriented to self, place and time. Patient is following commands. No aphasia and no neglect. Cranial nerves: The pupils are round, equal and reactive to light and accommodation. Visual reyes are full to confrontation throughout. Extraocular movement is intact no nystagmus is noted. Facial sensation is normal to touch throughout. The facial strength is normal throughout. Hearing is normal bilaterally to hand rub. Tongue is midline and moved [id number] without any difficulty. No dysarthria is noted. Shoulder shrug is normal bilaterally. Motor: Gait is normal. The strength is 5 over 5 throughout. Normal tone and bulk. Cerebellum: Normal finger to nose heel to chin bilaterally. Sensation: Sensation is normal to touch throughout. Reflexes (right/left): 2+ throughout. Plantars are downgoing bilaterally. Results - Laboratory Findings CBC and BMP: 03/11/23 20:04 03/13/23 11:34 Abnormal Lab Findings: Abnormal Labs 03/11/23 03/11/23 20:04 20:04 RDW 16.0 H Sodium 131 L Chloride 96 L Glucose 113 H Total Bilirubin 1.9 H AST 852 H ALT 218 H Alkaline Phosphatase 499 H Assessment and Plan Assessment: This is a 42-year-old woman with history of alcohol use who contracted COVID-19 infection in November 2022 and since then has been having multiple issues such as dizziness, lightheadedness, abdominal pain mostly on the left upper and lower, nausea vomiting, syncopal episode and memory issue. Dizziness, syncopal episode and memory issues seems due to underlying COVID-19 infection and in additional due to abdominal issues. On current examination no focal deficit. Syncopal episode possibly due to hypovolemia due to recurrent vomiting with abdominal pain AST is more than ALT (852 to 218): Having abdominal issues. Unsure if it's due to her chronic alcohol use and got worse after the COVID-19 infection Abdominal pain with recurrent nausea vomiting Significant alcohol use and stopped about year ago. Plan: An EEG and MRI of the brain is ordered by the primary team I ordered orthostatic vitals Ordered vitamin B12 and folate Currently on thiamine 100 mg daily GI team is consulted Recommend the patient to follow-up with a neurologist as an outpatient for further neuro psych evaluation for her memory issues. We'll defer the rest of the medical management to the primary and other specialists Thank you for the consultation Time with Patient: Greater than 30
[2023-03-13] MEDS: hydrOXYzine pamoate 25 MG CAP PO PRN (11:43)
[2023-03-13 12:08] LABS: Alcohol <10 mg/dL
[2023-03-13 12:54] LABS: ALT 183 U/L (4-34); AST 545 U/L (14-36); African American GFR (CKD) >90 (>60 ml/min/1.73 sqM); Albumin/Globulin Ratio 1.1; Alkaline Phosphatase 316 U/L (38-126); Anion Gap 3 mmol/L; Blood Urea Nitrogen <2 mg/dL (7-17); Calcium 7.9 mg/dL (8.4-10.2); Carbon Dioxide 27 mmol/L (22-30); Chloride 110 mmol/L (98-107); Globulin 2.8 g/dL; Glucose 88 mg/dL (74-99); Non-African American GFR(CKD) >90 (>60 ml/min/1.73 sqM); Sodium 140 mmol/L (137-145); Total Bilirubin 1.8 mg/dL (0.2-1.3); Total Protein 5.8 g/dL (6.3-8.2)
--- NOTE | 2023-03-13 13:50 | P.PN ---
Progress Note - Text Progress Note Date: 03/13/23 Interval History: Patient was seen today for psychiatric follow up regarding patients depression and anxiety. Patient was seen eating her food today. She was agreeable to speak to the parts data writer. She claims that she is doing a bit better since yesterday and apparently likes the Cymbalta. She claims that the Cymbalta has been helping her mood and anxiety. We spoke about increasing the dose to twice a day and she was okay with that. Claims that the Vistaril also did help yesterday when she was having more anxiety during the day. Claims that her sleep was fair last night she got about 3 hours and was agreeable to have the dose increased to 100 mg for tonight. She appears to be fairly future oriented and is nervous about "going under" anesthetic for the EEG. At this time patient denies any suicidal or homical ideations, intent or plan. Patient denies any auditory, visual hallucinations and denies any paranoia or delusions. Patient denies any side effects from the medications and has been compliant with meds. Mental Status Exam: General Appearance: Patient appears to be mildly overweight, stated age is alert, pleasant, and attempts to be cooperative. Patient appears to have fair hygiene and grooming wearing hospital gown with fair eye contact. Behavior: Patient is calmly lying in bed without any agitated behavior. Appears to be less anxious. Speech: Patient's speech is fluent and nonpressured. Mood/Affect: Patient reports their mood is "better today", affect is congruent and improving affect Suicidality/Homicidality: Patient denies having any suicidal or homicidal ideation intent or plan. Perceptions: Patient denies any visual hallucinations and denies any auditory hallucinations Though content/process: There is no evidence of any delusional thought content and thought process is linear and goal-directed. less Somatically preoccupied. Memory and concentration: AOX3, grossly intact for the purposes of this session Judgment and insight: improving mildly IMPRESSIONS: Major depressive disorder, mild anxiety disorder NOS cannabis use disorder mild abuse PLAN: -At this time patient DOES NOT meet criteria for inpatient psychiatric admission. -Would recommend the following medication changes/additions: increase Cymbalta 30 mg BID for mood/anxiety, increase trazodone 100 mg scheduled daily at bedtime +50 mg when necessary for insomnia. Vistaril 25 mg every 6 hours when necessary for anxiety. -ship worker to provide patient with outpatient mental health/psychiatry resources for appropriate follow up upon discharge -Battery Loader spoke with patient about substance abuse and the harmful effects on medical and mental health, patient verbally understood and agreed. -Communicated plan to patient's nurse -at this time psychiatry will sign off, please ensure that patient does have psychiatric outpatient follow up prior to d/c -Please contact with any questions.
--- NOTE | 2023-03-13 14:38 | P.PN ---
Progress Note - Text Progress Note Date: 03/13/23 Chief Complaint: Multiple symptoms This is a 42-year-old patient, follows with Dr. Rolanda Ovalle. Patient presents with multiple symptoms. Patient has known gastric bypass surgery history for by Dr. Duran. Patient developed: November of this year. Pain is with long-standing drinking alcohol for many years. With some periods of short breaks. Patient states that when she eats she gets nauseated. And also throws a once a day. Also has anywhere from 3-4 bowel movements a day. The bowel movements smelled really bad. Oftentimes changing color. Patient also notices that she sometimes gets short of breath. With activity. Last Saturday is also been having chest pain. Other constant. No radiation. Worse with activity. Also complains of episodes of dizziness and sometimes forgetful and confused. She thinks she's been told she also has some long covered sy mptoms. Patient had not taken the COVID-19 vaccine. Patient is also to admission for the same at [facility]. Patient also has some dark stools. Questionable blood in the stools. Does feel sleepy and tired. 03/13/2023. Patient seen by cardiology and pulmonary. No further inpatient testing required. 2-D echocardiogram unremarkable. Does not seem to any significant cardiac or pulmonary issues. Abdominal ultrasound showed hepatic steatosis. Patient is pending MRI and EEG. Patient's EEG". Postpone till tomorrow. Patient requesting workup for autoimmune disorder which is present the family. Patient follows with Dr. Sanchez outpatient for the same. Remains on clear liquid diet. Patient's last alcoholic intake was 4 days ago that included 3 drinks. Patient counseled against alcohol. Active Medications Acetaminophen (Acetaminophen Tab 325 Mg Tab) 650 mg PO Q6HR PRN PRN Reason: Mild Pain or Fever > 100.5 Last Admin: 03/13/23 10:47 Dose: 650 mg Calcium Carbonate/Glycine (Calcium Carbonate 500 Mg Chewable) 1,000 mg PO Q4HR PRN PRN Reason: Dyspepsia Duloxetine HCl (Duloxetine Hcl 30 Mg Capsule.) 30 mg PO BID ANGIE Hydroxyzine Pamoate (Hydroxyzine Pamoate 25 Mg Cap) 25 mg PO Q6HR PRN PRN Reason: Anxiety Last Admin: 03/13/23 11:43 Dose: 25 mg Sodium Chloride (Saline 0.9%) 1,000 mls @ 130 mls/hr IV .Q7H42M [facility] Last Admin: 03/13/23 04:13 Dose: 130 mls/hr Lactobacillus Acidophilus (Lactobacillus Acidophilus/Pect 1 Each Capsule) 1 each PO DAILY [facility] Last Admin: 03/13/23 08:52 Dose: Not Given Lactulose (Lactulose 20 Gm/30 Ml Cup) 20 gm PO DAILY PRN PRN Reason: Constipation Multivitamins (Multivitamins, Thera 1 Each Tab) 1 each PO DAILY [facility] Last Admin: 03/13/23 08:53 Dose: 1 each Naloxone HCl (Naloxone 0.4 Mg/Ml 1 Ml Vial) 0.2 mg IV Q2M PRN PRN Reason: Opioid Reversal Ondansetron HCl (Ondansetron 4 Mg/2 Ml Vial) 4 mg IVP Q8HR PRN PRN Reason: Nausea And Vomiting Pantoprazole Sodium (Pantoprazole 40 Mg/10 Ml Vial) 40 mg IVP DAILY [facility] Last Admin: 03/13/23 10:48 Dose: 40 mg Thiamine HCl (Thiamine 100 Mg Tab) 100 mg PO DAILY [facility] Last Admin: 03/13/23 08:53 Dose: 100 mg Trazodone HCl (Trazodone Hcl 50 Mg Tab) 50 mg PO HS PRN PRN Reason: Additional Insomnia Trazodone HCl (Trazodone Hcl 100 Mg Tab) 100 mg PO HS [facility] Past medical history to include: Asthma, GERD, prostatitis, ulcer, hiatal hernia, long COVID. Anna-en-Y gastric bypass surgery. Anxiety. Social history: . . Was trying excessive alcohol up until about 4 months ago. No significant history of smoking. Rarely marijuana. Works in a store Physical examination: VITAL SIGNS: 97.9, 70, 16, 123/80, 97% room air GENERAL: Sitting at the edge of the bed comfortable EYES: [Pupils equal. Conjunctiva yellow l. HEENT: External appearance of nose and ears normal, oral cavity grossly normal. NECK: JVD not raised; masses not palpable. HEART: First and second heart sounds are normal; no edema. LUNGS: Respiratory rate normal; clear to auscultation. ABDOMEN: Soft, nontender, liver spleen not palpable, no masses palpable. PSYCH: Alert and oriented x3; mood and affect tiredl. INVESTIGATIONS, reviewed in the clinical context: 2-D echocardiogram: Normal LV function. Abdominal ultrasound: Limited. Liver enlarged. Severe hepatic steatosis. Acute hepatitis panel: Negative March 13: Potassium 4 BUN less than 2 creatinine 0.56 total bilirubin 1.8 AST 545 ALT 183 alkaline phosphatase 316 White count 5.1 hemoglobin 14 platelets are 83 sodium 131 potassium 4 BUN 13 creatinine 0.84 Total bilirubin 1.9 AST 852 ALT 218 alkaline phosphatase 499 Troponin I 2 less than 0.012. CRP less than 0.5 TSH 3.4 EKG tracing personally reviewed by me-normal sinus rhythm. Rate 98 Chest x-ray film personally reviewed by me-some hyperinflation CT angiogram of the chest with IV contrast: Negative for PE. Severe hepatic steatosis. Anna-en-Y gastric bypass CT abdomen and pelvis: Severe hepatic steatosis. Cholecystectomy. Anna-en-Y gastric bypass. Assessment plan: -Acute GI bleed with dark stools. History of alcoholism in the past. Patient also been having abdominal pain. History of Anna-en-Y gastric bypass surgery. Follows with Dr. Duran. Pending EGD colonoscopy. PPI. Clear liquids. -Severely elevated liver enzymes in a patient with history of alcoholism up to December of this year. Patient still drinks sometimes Acute hepatitis panel-negative. Liver ultrasound. Consult GI. -Patient does complain of intermittent shortness of breath. History of COVID in November of this year. Seen by Dr. Urrutia from pulmonary. No significant pulmonary issues. Follow- up outpatient. -Anterior chest wall pain. Some relation to activity. Troponin negative. 2-D echo unremarkable.. Seen by cardiology. No further testing. -Intermittent episodes of confusion and dizziness. MRI brain with and without contrast. EEG. Follow-up with neurology -Anxiety Await input from psychiatry. -GERD PPI -Alcoholic liver disease Liver ultrasound -Full code Clear liquids. Pending EGD coloscopy. Patient advised to get use of alcohol.
--- NOTE | 2023-03-13 14:51 | P.PN ---
Subjective Progress Note Date: 03/13/23 CHIEF COMPLAINT: Abdominal pain HISTORY OF PRESENT ILLNESS: Patient with known history of Anna-en-Y inhaler. Patient presented with abdominal pain with nausea and vomiting intermittently since being diagnosed with COVID in November. Patient does have history of alcohol use. Patient being evaluated by multiple consultants she is scheduled for an MRI of the brain and EEG today. Initially were planning to proceed with EGD and colonoscopy however there were scheduling issues between the endoscopies and patient's neurological tests. Therefore scopes have been postponed until tomorrow. Patient continues to report pain mostly on the left side of the abdomen. She did have some dark stools initially with the bowel prep and nostrils are clear. She denies any nausea or vomiting. Afebrile. Total bili 1.8 AST 545 ALT 183 alk phos 316 k 4.0 PHYSICAL EXAM: VITAL SIGNS: Reviewed GENERAL: Well-developed in no acute distress. HEENT: No sclera icterus. Extraocular movements grossly intact. Moist buccal mucosa. Head is atraumatic, normocephalic. Hears conversational speech. No nasal drainage. NECK: Supple without lymphadenopathy. CHEST: Non-labored respirations and equal bilateral excursions. CARDIOVASCULAR: Palpable 2+ radial pulses. ABDOMEN: Soft. Nondistended. Tender with palpation left side abdomen MUSCULOSKELETAL: No clubbing or cyanosis. NEUROLOGIC: No focal or lateralizing signs. Cranial nerves II through XII grossly intact. PSYCH: Appropriate affect. Alert and oriented to person, place and time. SKIN: Well perfused. Good skin turgor. ASSESSMENT: 1. Abdominal pain with nausea and vomiting 2. Episodes of black stools and emesis with streaks of blood 3. History of Anna-en-Y 4. History of erosive esophagitis 5. History of colon polyps 6. Elevated liver enzymes 7. History of alcohol abuse PLAN: -Continue neuro workup -EGD and colonoscopy rescheduled for tomorrow with Dr. De La O -Start clear liquid diet -NPO after midnight -GI following for hepatitis -Repeat labs in a.m. -Continue IV protonix Physician Senior Technical Analyst note has been reviewed by physician. Signing provider agrees with the documented findings, assessment, and plan of care. Objective - Vital Signs Vital signs: Vital Signs Temp 97.9 F 03/13/23 07:00 Pulse 70 03/13/23 07:00 Resp 16 03/13/23 07:00 BP 123/80 03/13/23 07:00 Pulse Ox 98 03/13/23 14:34 FiO2 Intake & Output 03/12/23 03/13/23 03/13/23 18:59 06:59 18:59 Other: # Voids 2 # Bowel Movements 2 - Labs CBC & Chem 7: 03/11/23 20:04 03/13/23 11:34 Labs: Abnormal Lab Results - Last 24 Hours (Table) 03/13/23 Range/Units 11:34 Chloride 110 H (98-107) mmol/L BUN <2 L (7-17) mg/dL Calcium 7.9 L (8.4-10.2) mg/dL Total Bilirubin 1.8 H (0.2-1.3) mg/dL AST 545 H (14-36) U/L ALT 183 H (4-34) U/L Alkaline Phosphatase 316 H (38-126) U/L Total Protein 5.8 L (6.3-8.2) g/dL Albumin 3.0 L (3.5-5.0) g/dL
--- NOTE | 2023-03-13 17:06 | P.CONS ---
History of Present Illness - Reason for Consult Consult date: 03/13/23 Hepatitis Requesting physician: Jesús Stockton - Chief Complaint Multiple complaints - History of Present Illness This pleasant 42-year-old female who presented to the emergency department with multiple complaints including abdominal pain, nausea and vomiting, dizziness, c onfusion, anxiety, and shortness of breath. She has a past medical history including alcohol dependence and abuse, asthma, GERD, and previous bariatric surgery and hernia surgery. Multiple consultants have seen patient, however, gastroenterology was consulted for hepatitis. Patient was noted have elevated LFTs on admission. Patient states that she has been a heavy drinker for approximately 20 years. She has been off-and-on and has even been in rehab. She states a few weeks ago she was drinking as much as half a fifth a day. She states her last drink was this past . She denies any previous knowledge of liver disease or liver cirrhosis. Admitting labs WBC 5.1 hemoglobin 14, platelet count 183,010 are 1.0 total bilirubin 1.9 AST a 52 ALT 218 alkaline phosphatase 499 acute hepatitis panel nonreactive. Imaging Abdominal ultrasound that showed no acute process, but does report severe hepatic steatosis. CT abdomen and pelvis with IV contrast report severe hepatic steatosis, c holecystectomy, Aretha-en-Y gastric bypass. No obstruction of the tube jejunostomy Chest CT angiogram no focal infiltrate, pleural effusion, or pneumothorax. No acute pulmonary embolism. Severe hepatic steatosis. Aretha-en-Y gastric bypass. Review of Systems REVIEW OF SYSTEMS: CARDIOPULMONARY: Patient reports chest pain and shortness of breath. Gastrointestinal: Abdominal pain in the left lower quadrant. Constipation and diarrhea. Nausea with vomiting. No hematemesis, coffee-ground emesis. No rectal bleeding, or melena. GENITOURINARY: No dysuria or hematuria. MUSCULOSKELETAL: Reports normal range of motion., Joint pain. SKIN: No rashes. No jaundice. ENDOCRINE: No chills, fevers. No excessive weight gain or loss. No polydipsia or polyuria. PSYCHIATRIC: Anxiety. NEUROLOGY: No change in mental status. Dizziness, tremors. ENT: Vision unremarkable. CONSTITUTIONAL: No recent weight loss. No fever, chills, night sweats. Past Medical History Past Medical History: Asthma, GERD/Reflux, Osteoarthritis (OA) Additional Past Medical History / Comment(s): planter fasciitis, ulcer, hx hiatal hernia, SOB and "heart rate goes up", "abdomen is swollen and I feel pressure and have diff having a bowel movement", urinary urgency, current thrush, long COVID History of Any Multi-Drug Resistant Organisms: None Reported Past Surgical History: Bariatric Surgery, Cholecystectomy, Hernia Repair Additional Past Surgical History / Comment(s): EGD, surgery to repair hiatal hernia and aretha-en-y, colonoscopy. LYSIS OF ADHESIONS/LAP JACQUELINE 04/14/20 Past Anesthesia/Blood Transfusion Reactions: Previous Problems w/ Anesthesia, Motion Sickness Additional Past Anesthesia/Blood Transfusion Reaction / Comm: headache post op, 'I have panic attacks before and after surgery" Past Psychological History: Anxiety Smoking Status: Former smoker Past Alcohol Use History: Abuse Past Drug Use History: Marijuana - Past Family History Mother Family Medical History: No Reported History Medications and Allergies Home Medications Medication Instructions Recorded Confirmed Type Omeprazole [PriLOSEC] 40 mg PO DAILY #30 cap 01/21/20 03/11/23 Rx Ergocalciferol [Vitamin D2 (1250 1,250 mcg PO TU 03/05/23 03/11/23 History Mcg = 69916 Iu)] hydrOXYzine HCL [Atarax] 50 mg PO TID PRN 03/05/23 03/11/23 History Ferrous Sulfate [Feosol] 325 mg PO DAILY 03/11/23 03/11/23 History L.acidoph,Paracasei, B.lactis 1 cap PO DAILY 03/11/23 03/11/23 History [Probiotic] Multivitamins, Thera [Multivitamin 1 tab PO DAILY 03/11/23 03/11/23 History (formulary)] Zinc Gluconate [Zinc] 50 mg PO DAILY 03/11/23 03/11/23 History Allergies Allergy/AdvReac Type Severity Reaction Status Date / Time azithromycin AdvReac "FELT LIKE Verified 03/11/23 22:25 [From Zithromax Z-Martinez] MY BODY WAS ALL BRUISED AND SENSITIVE" Physical Exam Vitals: Vital Signs Temp Pulse Pulse Resp BP BP Pulse Ox 03/13/23 07:00 97.9 F 70 16 123/80 97 03/13/23 03:55 97.5 F L 71 18 121/89 99 03/12/23 19:07 97.6 F 89 16 145/87 97 03/12/23 18:15 97.6 F 74 16 122/90 100 03/12/23 17:27 97.4 F L 70 16 139/63 99 03/12/23 15:03 97.8 F 85 17 116/87 98 03/12/23 11:00 81 18 115/81 97 Intake and Output 03/12/23 03/13/23 03/13/23 22:59 06:59 14:59 Other: # Voids 2 2 # Bowel Movements 3 2 General appearance: The patient is alert, oriented, appears in no acute distress. HET: Head is normocephalic and atraumatic. Conjunctiva pink. Sclera anicteric. Neck: Supple without lymphadenopathy. Trachea midline. Heart: S1 S2. Regular rate and rhythm. Lungs: Clear to auscultation. Abdomen: Soft, left lower quadrant tenderness, nondistended with bowel sounds. No guarding or rigidity. Skin: No rashes. Jaundice. Extremities: Normal skin color and turgor. No pedal edema. Neurological: No focal deficits. Alert and oriented x3. Results CBC & Chem 7: 03/11/23 20:04 03/13/23 11:34 Assessment and Plan (1) Acute alcoholic hepatitis Narrative/Plan: patient with long-standing history of alcohol abuse approximately 20 years. Patient was drinking up to half a fifth a day. No prior knowledge of liver disease. However on admission patient did have significantly elevated LFTs especially alkaline phosphatase. Patient also had multiple imaging showing severe hepatic steatosis. Likely all related to acute alcoholic hepatitis however need to consider possible superimposed with medication-induced hepatitis. Patient recently started on Celexa about 4 weeks ago and took for about 3 weeks and stopped herself about 5 days ago. Discussed importance of alcohol abstinence with patient. Will order further liver serologies as well as CMV and EBV. Current Visit: Yes Status: Acute Code(s): K70.10 - ALCOHOLIC HEPATITIS WITHOUT ASCITES SNOMED Code(s): 4247888 Plan: 1. Continue symptomatic and supportive care 2. Liver serologies, CMV, EBV ordered 3. Avoid hepatotoxic medications 4. Continue to hold Celexa 5. Alcohol abstinence 6. Monitor patient closely for withdrawal symptoms 7. Continue with recommendations from other consultants 8. Patient will need outpatient follow-up with gastroenterology in 1-2 weeks. Thank you for this consultation, we will continue to follow. Dr. Alis Nelson I agree with the dictator's note, documented as a scribe by Jocelyn Freire.
[2023-03-13 17:55] LABS: Urine Alcohol Negative (Negative); Urine Barbiturate Negative (Negative); Urine Cocaine Negative (Negative); Urine Methadone Negative (Negative); Urine Opiates Negative (Negative); Urine Phencyclidine Negative (Negative)
--- NOTE | 2023-03-13 19:44 | MR ---
EXAMINATION TYPE: MR brain wo/w con DATE OF EXAM: 03/13/2023 6:24 PM CLINICAL INDICATION:Female, 42 years old with history of intermittent confusion; Intermittent confusi on COMPARISON: None TECHNIQUE: Multi planar, multi sequence imaging was performed through the brain including: T1, T2, In version recovery, susceptibility weighted imaging and gradient echo imaging and Diffusion weighted im aging. The patient was then given intravenous contrast and multi planar, T1 fat-saturation images wer e obtained. IV Contrast: 9 cc Gadavist FINDINGS: The thibodeaux-white junctions, ventricular system, basal cisterns appear unremarkable. Diffusion-weighted imaging shows no evidence of restricted diffusion to suggest acute/subacute infarct. Intracranial art erial flow voids are maintained. Midline structures show no abnormality. The susceptibility weighted images do not reveal any evidence for micro-hemorrhage. After administration of gadolinium, no abnorm al enhancement is seen. The bone marrow signal is within normal limits. Paranasal sinuses and mastoid air cells: No significant paranasal sinus disease. Visualized orbits: Orbital contents are intact. IMPRESSION: No evidence of intracranial mass, acute/subacute infarct, or abnormal enhancement.
[2023-03-13] MEDS: traZODone HCL 100 MG TAB PO SCH (21:24)
--- NOTE | 2023-03-13 23:22 | EEG ---
ELECTROENCEPHALOGRAM REPORT CLINICAL HISTORY: This is a 42-year-old woman with a syncopal episode at home. The video EEG is obtained to evaluate for seizure and epileptiform activity. RELEVANT MEDICATION: The patient is not on any antiepileptic drug. EEG TYPE: A routine EEG with video using the 10/20 electrode placement system was done. DESCRIPTION: Wakefulness is only obtained. During awake state, the posterior-dominant rhythm consists of low to moderate voltage of 11 to 12 hertz activity. There is no physiological stage 2 sleep architecture. There is no focal slowing. Interictal and ictal is none. ACTIVATION PROCEDURE: Photic stimulation did not evoke a posterior driving response. There is no abnormality during photic stimulation. Hyperventilation is not performed. CLINICAL INTERPRETATION: This is a normal routine EEG. There is no focal slowing, epileptiform discharge, or seizure on the EEG. Normal routine EEG does not rule out underlying epilepsy. Clinical correlation is recommended. RAY / KODI: [id number] / MTDD
[2023-03-14] MEDS: SODIUM CHLORIDE 0.9% 1,000 ML IV SCH ×3 (06:01→18:11)
[2023-03-14] MEDS ORDERED: LACTATED RINGERS 1,000 ML IV SCH (09:15)
[2023-03-14] MEDS: ACETAMINOPHEN TAB 325 MG TAB PO PRN (09:18)
[2023-03-14] MEDS: PANTOPRAZOLE 40 MG/10 ML VIAL IVP SCH (09:18)
[2023-03-14] MEDS: DULoxetine HCL 30 MG CAPSULE.DR PO SCH ×2 (09:24→20:00)
--- NOTE | 2023-03-14 11:21 | P.PN ---
Progress Note - Text Progress Note Date: 03/14/23 Interval History: Patient was seen today for psychiatric follow up regarding patients depression and anxiety. Patient was up watching television in her room. Patient claims that she did sleep better last night, states that she was unable to initiate sleep until around 2 AM. Claims that the trazodone has been helping, we spoke about increasing her dose to 150 mg she is agreeable to that. States that she is still anxious about her tests that she has to complete today and the scope will be done at 3 PM. She claims that her appetite is fair at this time however is nothing by mouth. Claiming that the Cymbalta has been helping with depression and anxiety. At this time patient denies any suicidal or homical ideations, intent or plan. Patient denies any auditory, visual hallucinations and denies any paranoia or delusions. Patient denies any side effects from the medications and has been compliant with meds. Mental Status Exam: General Appearance: Patient appears to be mildly overweight, stated age is alert, pleasant, and attempts to be cooperative. Patient appears to have fair h ygiene and grooming wearing hospital gown with fair eye contact. Behavior: Patient is calmly lying in bed without any agitated behavior. Appears to be less anxious. More appropriate and cooperative. Speech: Patient's speech is fluent and nonpressured. Mood/Affect: Patient reports their mood is "ty", affect is congruent and improving affect Suicidality/Homicidality: Patient denies having any suicidal or homicidal ideation intent or plan. Perceptions: Patient denies any visual hallucinations and denies any auditory hallucinations Though content/process: There is no evidence of any delusional thought content and thought process is linear and goal-directed. She oriented. Memory and concentration: AOX3, grossly intact for the purposes of this session Judgment and insight: improving mildly IMPRESSIONS: Major depressive disorder, mild anxiety disorder NOS cannabis use disorder mild abuse PLAN: -At this time patient DOES NOT meet criteria for inpatient psychiatric admission. -Would recommend the following medication changes/additions: continue Cymbalta 30 mg BID for mood/anxiety, increase trazodone 150 mg scheduled daily at bedtime for insomnia. -Reproduction Specialist spoke with patient about substance abuse and the harmful effects on medical and mental health, patient verbally understood and agreed. -Communicated plan to patient's nurse -At this time psychiatry will sign off, please ensure that patient does have psychiatric outpatient follow up prior to d/c -Please contact with any questions.
[2023-03-14 12:07] LABS: HCT 35.5 % (37.2-46.3); HGB 11.1 d/dL (12.0-15.0); MCH 31.7 pg (27.0-32.0); MCHC 31.3 d/dL (32.0-37.0); MCV 101.4 FL (80.0-97.0); Mean Platelet Volume 11.6 FL (9.5-12.2); NRBC Per 100 WBC 0 X 10*3/uL (0.00-0.01); Platelet Count 154 X 10*3/uL (140-440); RDW 15.5 % (11.5-14.5); WBC 4.14 X 10*3/uL (4.50-10.00)
--- NOTE | 2023-03-14 12:45 | P.PN ---
Subjective Progress Note Date: 03/14/23 The patient seen at bedside and she states she's doing well. Denies of any new neurological issues. According to the patient nurse she feels that she was doing well for her yesterday and today So far. Objective - Vital Signs Vital signs: Vital Signs Temp 97.7 F 03/14/23 07:00 Pulse 73 03/14/23 07:00 Resp 18 03/14/23 07:00 BP 132/89 03/14/23 07:00 Pulse Ox 96 03/14/23 08:56 FiO2 Intake & Output 03/13/23 03/14/23 03/14/23 18:59 06:59 18:59 Other: # Voids 2 2 - Exam GENERAL: The patient is lying in bed and is not in acute distress. NEUROLOGICAL: Higher mental function: The patient is awake, alert, oriented to self, place and time. Patient is following commands. No aphasia and no neglect. Cranial nerves: The pupils are round, equal and reactive to light and accommodation. Visual reyes are full to confrontation throughout. Extraocular movement is intact no nystagmus is noted. Facial sensation is normal to touch throughout. The facial strength is normal throughout. Hearing is normal bilaterally to hand rub. Tongue is midline and moved [id number] without any difficulty. No dysarthria is noted. Shoulder shrug is normal bilaterally. Motor: Gait is normal. The strength is 5 over 5 throughout. Normal tone and bulk. Cerebellum: Normal finger to nose heel to chin bilaterally. Sensation: Sensation is normal to touch throughout. Reflexes (right/left): 2+ throughout. Plantars are downgoing bilaterally. Some of the workup during his hospital visit consisted of: She is afebrile so far CBC with differential is RDW 16 otherwise rest is unremarkable AST of 852 and ALT of 218 CRP is normal TSH is 3.440 Bottom B12 is 1775 Serum folate is 35 Calcium is 8.8, magnesium is 1.8, sodium is 131 Urine drug screen is on detected and serum alcohol was less than 10. 2-D echo was reported as normal left ventricular size and systolic function. Mild tricuspid with trace mild regurgitation. Abdominal ultrasound shows severe hepatic stenosis but otherwise is limited due to her body habitus and overlying bowel gas. Routine EEG is normal. There is no focal slowing, epileptiform discharges or seizure on the EEG MR the brain is reported as no evidence of intracranial mass, acute/subacute infarct or abnormal enhancement. I personally reviewed the MRI and agree with the report. - Labs CBC & Chem 7: 03/14/23 06:45 03/13/23 11:34 Labs: Abnormal Lab Results - Last 24 Hours (Table) 03/13/23 03/13/23 03/13/23 Range/Units 11:34 11:34 11:34 WBC (4.50-10.00) X 10*3/uL RBC (4.10-5.20) X 10*6/uL Hgb (12.0-15.0) d/dL Hct (37.2-46.3) % MCV (80.0-97.0) FL MCHC (32.0-37.0) d/dL RDW (11.5-14.5) % Chloride 110 H (98-107) mmol/L BUN <2 L (7-17) mg/dL Calcium 7.9 L (8.4-10.2) mg/dL Total Bilirubin 1.8 H (0.2-1.3) mg/dL AST 545 H (14-36) U/L ALT 183 H (4-34) U/L Alkaline Phosphatase 316 H (38-126) U/L Total Protein 5.8 L (6.3-8.2) g/dL Albumin 3.0 L (3.5-5.0) g/dL Vitamin B12 1775.0 H (200.0-944.0) pg/mL Folate 35.00 H (4.40-31.00) ng/mL 03/14/23 Range/Units 06:45 WBC 4.14 L (4.50-10.00) X 10*3/uL RBC 3.50 L (4.10-5.20) X 10*6/uL Hgb 11.1 L (12.0-15.0) d/dL Hct 35.5 L (37.2-46.3) % MCV 101.4 H (80.0-97.0) FL MCHC 31.3 L (32.0-37.0) d/dL RDW 15.5 H (11.5-14.5) % Chloride (98-107) mmol/L BUN (7-17) mg/dL Calcium (8.4-10.2) mg/dL Total Bilirubin (0.2-1.3) mg/dL AST (14-36) U/L ALT (4-34) U/L Alkaline Phosphatase (38-126) U/L Total Protein (6.3-8.2) g/dL Albumin (3.5-5.0) g/dL Vitamin B12 (200.0-944.0) pg/mL Folate (4.40-31.00) ng/mL Assessment and Plan Assessment: This is a 42-year-old woman with history of alcohol use who contracted COVID-19 infection in November 2022 and since then has been having multiple issues such as dizziness, lightheadedness, abdominal pain mostly on the left upper and lower, nausea vomiting, syncopal episode and memory issue. Dizziness, syncopal episode and memory issues seems due to underlying COVID-19 infection and in additional due to abdominal issues. On current examination no focal deficit. Routine EEG is normal, my the brain is negative and orthostatic are negative. Syncopal episode possibly due to hypovolemia due to recurrent vomiting with abdominal pain AST is more than ALT (852 to 218): Having abdominal issues. Unsure if it's due to her chronic alcohol use and got worse after the COVID-19 infection Abdominal pain with recurrent nausea vomiting Significant alcohol use and stopped about year ago. Plan: Currently on thiamine 100 mg daily GI team is consulted Recommend the patient to follow-up with a neurologist as an outpatient for detailed memory evaluation. We'll defer the rest of the medical management to the primary and other specialists There is no further neurological workup. We'll sign off. Please reconsult as needed. The discussed with the patient and her nurse. Time with Patient: Less than 30
--- NOTE | 2023-03-14 14:58 | P.PN ---
Subjective Progress Note Date: 03/14/23 Principal diagnosis: Liver cirrhosis This pleasant 42-year-old female who presented to the emergency department with multiple complaints including abdominal pain, nausea and vomiting, dizziness, confusion, anxiety, and shortness of breath. She has a past medical history including alcohol dependence and abuse, asthma, GERD, and previous bariatric surgery and hernia surgery. Multiple consultants have seen patient, however, gastroenterology was consulted for hepatitis. Patient was noted have elevated LFTs on admission. Patient states that she has been a heavy drinker for approximately 20 years. She has been off-and-on and has even been in rehab. She states a few weeks ago she was drinking as much as half a fifth a day. She states her last drink was this past . She denies any previous knowledge of liver disease or liver cirrhosis. Admitting labs WBC 5.1 hemoglobin 14, platelet count 183,010 are 1.0 total bilirubin 1.9 AST a 52 ALT 218 alkaline phosphatase 499 acute hepatitis panel nonreactive. Imaging Abdominal ultrasound that showed no acute process, but does report severe hepatic steatosis. CT abdomen and pelvis with IV contrast report severe hepatic steatosis, cholecystectomy, Anna-en-Y gastric bypass. No obstruction of the tube jejunostomy Chest CT angiogram no focal infiltrate, pleural effusion, or pneumothorax. No acute pulmonary embolism. Severe hepatic steatosis. Anna-en-Y gastric bypass. 03/14/2023 Patient seen and examined today as a follow-up for liver cirrhosis. Patient was resting comfortably, and took quite a bit to wake her up. However she states she has this pretty severe pain this morning. Patient is scheduled for upper and lower endoscopy today with general surgery. Otherwise no acute changes through the night. Liver studies pending. Objective - Vital Signs Vital signs: Vital Signs Temp 97.7 F 03/14/23 07:00 Pulse 73 03/14/23 07:00 Resp 18 03/14/23 07:00 BP 132/89 03/14/23 07:00 Pulse Ox 94 L 03/14/23 07:00 FiO2 Intake & Output 03/13/23 03/14/23 03/14/23 18:59 06:59 18:59 Other: # Voids 2 2 - Exam General appearance: The patient is alert, oriented, appears in no acute distress. HET: Head is normocephalic and atraumatic. Conjunctiva pink. Sclera anicteric. Neck: Supple without lymphadenopathy. Abdomen: Soft, mild tenderness left lower quadran. No guarding or rigidity. Extremities: Normal skin color and turgor. No pedal edema Skin: No rashes, no jaundice Neurological: No focal deficits. Alert and oriented. - Labs CBC & Chem 7: 03/14/23 06:45 03/13/23 11:34 Labs: Abnormal Lab Results - Last 24 Hours (Table) 03/13/23 03/13/23 03/13/23 Range/Units 11:34 11:34 11:34 Chloride 110 H (98-107) mmol/L BUN <2 L (7-17) mg/dL Calcium 7.9 L (8.4-10.2) mg/dL Total Bilirubin 1.8 H (0.2-1.3) mg/dL AST 545 H (14-36) U/L ALT 183 H (4-34) U/L Alkaline Phosphatase 316 H (38-126) U/L Total Protein 5.8 L (6.3-8.2) g/dL Albumin 3.0 L (3.5-5.0) g/dL Vitamin B12 1775.0 H (200.0-944.0) pg/mL Folate 35.00 H (4.40-31.00) ng/mL Assessment and Plan (1) Acute alcoholic hepatitis Narrative/Plan: patient with long-standing history of alcohol abuse approximately 20 years. Patient was drinking up to half a fifth a day. No prior knowledge of liver disease. However on admission patient did have significantly elevated LFTs especially alkaline phosphatase. Patient also had multiple imaging showing severe hepatic steatosis. Likely all related to acute alcoholic hepatitis however need to consider possible superimposed with medication-induced hepatitis. Patient recently started on Celexa about 4 weeks ago and took for about 3 weeks and stopped herself about 5 days ago. Discussed importance of alcohol abstinence with patient. Will order further liver serologies as well as CMV and EBV. Current Visit: Yes Status: Acute Code(s): K70.10 - ALCOHOLIC HEPATITIS WITHOUT ASCITES SNOMED Code(s): 3345145 Plan: 1. Continue symptomatic and supportive care 2. Liver serologies, CMV, EBV ordered 3. Avoid hepatotoxic medications 4. Continue to hold Celexa 5. Alcohol abstinence 6. Monitor patient closely for withdrawal symptoms 7. Continue with recommendations from other consultants 8. Patient will need outpatient follow-up with gastroenterology in 1-2 weeks. Thank you for this consultation, we will continue to follow. Dr. Alis Nelson I agree with the dictator's note, documented as a scribe by Jocelyn Freire.
[2023-03-14] MEDS ORDERED: IV FLUID CONTINUATION 600 ML IV ONE (15:09)
[2023-03-14] MEDS ORDERED: PROPOFOL 10 MG/ML 20 ML VIAL IV ONE (15:11)
[2023-03-14] MEDS ORDERED: LIDOCAINE 2% INJ 20 MG/ML (2 ML VIAL) ONE (15:11)
--- NOTE | 2023-03-14 15:36 | P.PCN ---
Date of Procedure: 03/14/23 Description of Procedure: PREOPERATIVE DIAGNOSES: 1. Epigastric abdominal pain. 2. GI bleed 3. History of gastric bypass POSTOPERATIVE DIAGNOSES: 1. Acute gastritis or bleeding PROCEDURE PERFORMED: Esophagogastrojejunoscopy. SURGEON: Carlita De La O MD ANESTHESIA: MAC. INDICATIONS: The patient is a 42year-old female with prior history of Anna-en-Y gastric bypass who presents with GI bleed. Upper endoscopy was offered for further evaluation and management. DESCRIPTION: Patient was brought to the endoscopy suite and laid in the left lateral decubitus position. After adequate IV sedation, a bite block was placed. An Olympus gastroscope was passed along the posterior oropharynx down to the distal esophagus where the squamocolumnar junction was found at approximately 38 cm from the incisors. The scope was advanced 60 cm from the incisors. No evidence of foreign body was found. No evidence of active gastrojejunal ulcerations were encountered. Acute bleeding along the gastric pouch was found from gastritis. The GI tract was desufflated. The patient tolerated the procedure well. FINDINGS: 1. No acute gastrojejunal ulceration. 2. No foreign body found along the anastomosis. 3. Acute bleeding from gastritis and gastric pouch PLAN: 1. Protonix 40 mg twice a day for 2 weeks 2. Discontinue alcohol use
--- NOTE | 2023-03-14 15:38 | P.PCN ---
Date of Procedure: 03/14/23 Description of Procedure: PREOPERATIVE DIAGNOSIS: Gastrointestinal bleeding with hematochezia POSTOPERATIVE DIAGNOSIS: Poor prep OPERATION: Colonoscopy to the transverse colon SURGEON: Carlita De La O MD. ANESTHESIA: MAC. INDICATIONS: The patient is a 42-year-old female who presents with gastrointestinal bleeding. Benefits and risks were described and informed consent was obtained. DESCRIPTION OF PROCEDURE: The patient had undergone attempted Golytely prep 2 L. The patient had been brought into the operating room and laid in the left lateral decubitus position. After adequate intravenous sedation, the rectum was examined with 2% lidocaine jelly. The rectal tone was within normal limits. An Olympus colonoscope was gently advanced where semisolid stool was found along the sigmoid colon including descending colon and transverse colon blocking any further advancement of the scope. No active colonic bleeding was found. No intraluminal masses were identified within the colon. No colonic polyps were found. No evidence of focal colitis was found. Retroflexion of the scope demonstrated grade 4 internal hemorrhoids with recent inflammation. The colon was desufflated. The patient had tolerated the procedure well. Exam deemed nondiagnostic due to moderate stool. Withdrawal time was over 6 minutes. FINDINGS: Aronchick preparation quality scale 4+ (1-5) Internal hemorrhoids, grade 1 No thrombosed hemorrhoid identified. No arteriovenous malformations. No adenomatous polyps. No focal colitis. Poor prep limiting diagnostic tool RECOMMENDATIONS: 1. Repeat colonoscopy as present exam nondiagnostic due to moderate stool 2. No obvious signs of bleeding Plan - Discharge Summary New Discharge Prescriptions: New Thiamine [Vitamin B-1] 100 mg PO DAILY #30 tab traZODone HCL 150 mg PO HS 14 Days #14 tablet DULoxetine HCL [Cymbalta] 30 mg PO BID #60 cap Continue Omeprazole [PriLOSEC] 40 mg PO DAILY #30 cap hydrOXYzine HCL [Atarax] 50 mg PO TID PRN PRN Reason: ITCHING/ANXIETY Multivitamins, Thera [Multivitamin (formulary)] 1 tab PO DAILY Ferrous Sulfate [Iron (65 MG Elemental)] 325 mg PO DAILY L.acidoph,Paracasei, B.lactis [Probiotic] 1 cap PO DAILY Discontinued Zinc Gluconate [Zinc] 50 mg PO DAILY Ergocalciferol [Vitamin D2 (1250 Mcg = 86568 Iu)] 1,250 mcg PO TU Discharge Medication List Omeprazole [PriLOSEC] 40 mg PO DAILY #30 cap 01/21/20 [Rx] hydrOXYzine HCL [Atarax] 50 mg PO TID PRN 03/05/23 [History] Ferrous Sulfate [Iron (65 MG Elemental)] 325 mg PO DAILY 03/11/23 [History] L.acidoph,Paracasei, B.lactis [Probiotic] 1 cap PO DAILY 03/11/23 [History] Multivitamins, Thera [Multivitamin (formulary)] 1 tab PO DAILY 03/11/23 [History] DULoxetine HCL [Cymbalta] 30 mg PO BID #60 cap 03/14/23 [Rx] Thiamine [Vitamin B-1] 100 mg PO DAILY #30 tab 03/14/23 [Rx] traZODone HCL 150 mg PO HS 14 Days #14 tablet 03/14/23 [Rx] Follow up Appointment(s)/Referral(s): Caro Dave MD [STAFF PHYSICIAN] - 1 Week Jess Pérez NPC [REFERRING] - 03/21/23 11:30 am (Gastroenterolgy, Dr. Nelson's office . Appointment made with Lyly) Carlita De La O MD [STAFF PHYSICIAN] - 2 Weeks Celi Nelson MD [STAFF PHYSICIAN] - 2 Weeks Rolanda Ovalle DO [Primary Care Provider] - 1-2 days Blessing Sanchez MD [STAFF PHYSICIAN] - 1 Week (autoimmune work up) Xi Urrutia MD [STAFF PHYSICIAN] - 1 Week Discharge/Stand Alone Forms: Who Do I Call?, Community Resources, Outpatient Counseling, Area PCPs
[2023-03-14] MEDS: MULTIVITAMINS, THERA 1 EACH TAB PO SCH (15:42)
[2023-03-14] MEDS: LACTOBACILLUS ACIDOPHILUS/PECT 1 EACH CAPSULE PO SCH (15:42)
[2023-03-14] MEDS: THIAMINE 100 MG TAB PO SCH (15:42)
--- NOTE | 2023-03-14 16:55 | P.PN ---
Progress Note - Text Progress Note Date: 03/14/23 Chief Complaint: Multiple symptoms This is a 42-year-old patient, follows with Dr. Rolanda Ovalle. Patient presents with multiple symptoms. Patient has known gastric bypass surgery history for by Dr. Duran. Patient developed: November of this year. Pain is with long-standing drinking alcohol for many years. With some periods of short breaks. Patient states that when she eats she gets nauseated. And also throws a once a day. Also has anywhere from 3-4 bowel movements a day. The bowel movements smelled really bad. Oftentimes changing color. Patient also notices that she sometimes gets short of breath. With activity. Last Saturday is also been having chest pain. Other constant. No radiation. Worse with activity. Also complains of episodes of dizziness and sometimes forgetful and confused. She thinks she's been told she also has some long covered sy mptoms. Patient had not taken the COVID-19 vaccine. Patient is also to admission for the same at [facility]. Patient also has some dark stools. Questionable blood in the stools. Does feel sleepy and tired. 03/13/2023. Patient seen by cardiology and pulmonary. No further inpatient testing required. 2-D echocardiogram unremarkable. Does not seem to any significant cardiac or pulmonary issues. Abdominal ultrasound showed hepatic steatosis. Patient is pending MRI and EEG. Patient's EEG". Postpone till tomorrow. Patient requesting workup for autoimmune disorder which is present the family. Patient follows with Dr. Sanchez outpatient for the same. Remains on clear liquid diet. Patient's last alcoholic intake was 4 days ago that included 3 drinks. Patient counseled against alcohol. 03/14/2023: Patient still having some abdominal pain. This afternoon patient underwent EGD. Found some bleeding in the pouch area. We'll try the patient on diet today repeat CBC in the morning. Remains stable. And discharged tomorrow. Repeat CMP in the morning. Colonoscopic: Grade 4 internal hemorrhoids. With recent inflammation. Moderate stool present. EGD: Active bleeding from gastritis from gastric pouch. Active Medications Acetaminophen (Acetaminophen Tab 325 Mg Tab) 650 mg PO Q6HR PRN PRN Reason: Mild Pain or Fever > 100.5 Last Admin: 03/14/23 09:18 Dose: 650 mg Calcium Carbonate/Glycine (Calcium Carbonate 500 Mg Chewable) 1,000 mg PO Q4HR PRN PRN Reason: Dyspepsia Duloxetine HCl (Duloxetine Hcl 30 Mg Capsule.Dr) 30 mg PO BID [facility] Last Admin: 03/14/23 09:24 Dose: 30 mg Hydroxyzine Pamoate (Hydroxyzine Pamoate 25 Mg Cap) 25 mg PO Q6HR PRN PRN Reason: Anxiety Last Admin: 03/13/23 11:43 Dose: 25 mg Sodium Chloride (Saline 0.9%) 1,000 mls @ 130 mls/hr IV .Q7H42M [facility] Last Admin: 03/14/23 15:43 Dose: Not Given Lactated Ringer's (Lactated Ringers) 1,000 mls @ 20 mls/hr IV .Q24H [facility] Last Admin: 03/14/23 15:42 Dose: Not Given Lactobacillus Acidophilus (Lactobacillus Acidophilus/Pect 1 Each Capsule) 1 each PO DAILY [facility] Last Admin: 03/14/23 15:42 Dose: Not Given Lactulose (Lactulose 20 Gm/30 Ml Cup) 20 gm PO DAILY PRN PRN Reason: Constipation Multivitamins (Multivitamins, Thera 1 Each Tab) 1 each PO DAILY [facility] Last Admin: 03/14/23 15:42 Dose: Not Given Naloxone HCl (Naloxone 0.4 Mg/Ml 1 Ml Vial) 0.2 mg IV Q2M PRN PRN Reason: Opioid Reversal Ondansetron HCl (Ondansetron 4 Mg/2 Ml Vial) 4 mg IVP Q8HR PRN PRN Reason: Nausea And Vomiting Pantoprazole Sodium (Pantoprazole 40 Mg/10 Ml Vial) 40 mg IVP DAILY [facility] Last Admin: 03/14/23 09:18 Dose: 40 mg Thiamine HCl (Thiamine 100 Mg Tab) 100 mg PO DAILY [facility] Last Admin: 03/14/23 15:42 Dose: Not Given Trazodone HCl (Trazodone Hcl 50 Mg Tab) 50 mg PO HS PRN PRN Reason: Additional Insomnia Trazodone HCl (Trazodone Hcl 100 Mg Tab) 100 mg PO HS [facility] Last Admin: 03/13/23 21:24 Dose: 100 mg Past medical history to include: Asthma, GERD, prostatitis, ulcer, hiatal hernia, long COVID. Anna-en-Y gastric bypass surgery. Anxiety. Social history: . . Was trying excessive alcohol up until about 4 months ago. No significant history of smoking. Rarely marijuana. Works in a store Physical examination: VITAL SIGNS: 97.9, 70, 16, 123/80, 97% room air GENERAL: Sitting at the edge of the bed comfortable EYES: [Pupils equal. Conjunctiva yellow l. HEENT: External appearance of nose and ears normal, oral cavity grossly normal. NECK: JVD not raised; masses not palpable. HEART: First and second heart sounds are normal; no edema. LUNGS: Respiratory rate normal; clear to auscultation. ABDOMEN: Soft, mild tenderness, liver spleen not palpable, no masses palpable. PSYCH: Alert and oriented x3; mood and affect tiredl. INVESTIGATIONS, reviewed in the clinical context: March 14: White count 4.1 hemoglobin 11.1 platelets 154 2-D echocardiogram: Normal LV function. Abdominal ultrasound: Limited. Liver enlarged. Severe hepatic steatosis. Acute hepatitis panel: Negative March 13: Potassium 4 BUN less than 2 creatinine 0.56 total bilirubin 1.8 AST 545 ALT 183 alkaline phosphatase 316 White count 5.1 hemoglobin 14 platelets are 83 sodium 131 potassium 4 BUN 13 creatinine 0.84 Total bilirubin 1.9 AST 852 ALT 218 alkaline phosphatase 499 Troponin I 2 less than 0.012. CRP less than 0.5 TSH 3.4 EKG tracing personally reviewed by me-normal sinus rhythm. Rate 98 Chest x-ray film personally reviewed by me-some hyperinflation CT angiogram of the chest with IV contrast: Negative for PE. Severe hepatic massimo atosis. Anna-en-Y gastric bypass CT abdomen and pelvis: Severe hepatic steatosis. Cholecystectomy. Anna-en-Y gastric bypass. Assessment plan: -Acute GI bleed with dark stools. 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 History of Anna-en-Y gastric bypass surgery. Follows with Dr. Duran. -Acute gastritis and gastric pouch secondary to alcoholism Increase PPI to twice a day -Acute alcoholic hepatitis Patient had a few drinks about 4 days prior to presentation -Severely elevated liver enzymes in a patient with history of alcoholism up to December of this year. Patient still drinks sometimes Acute hepatitis panel-negative. Liver ultrasound showed severe steatosis some hepatomegaly. Follow with GI -Patient does complain of intermittent shortness of breath. History of COVID in November of this year. Seen by Dr. Urrutia from pulmonary. No significant pulmonary issues. Follow- up outpatient. -Anterior chest wall pain. Some relation to activity. Troponin negative. 2-D echo unremarkable.. Seen by cardiology. No further testing. -Intermittent episodes of confusion and dizziness. MRI brain with and without contrast. EEG. Follow-up with neurology -Anxiety Await input from psychiatry. -GERD PPI -Alcoholic liver disease Liver ultrasound -Full code Advance diet today. Increase PPI to twice a day. Repeat labs in the morning. Remains stable and discharged tomorrow.
[2023-03-14] MEDS: PANTOPRAZOLE 40 MG TABLET PO SCH (18:11)
[2023-03-14] MEDS: traZODone HCL 100 MG TAB PO SCH (21:34)
[2023-03-15] MEDS: SODIUM CHLORIDE 0.9% 1,000 ML IV SCH (02:17)
[2023-03-15 05:08] LABS: EBV - VCA IgM 10.5 U/mL (<36.0)
[2023-03-15] MEDS: PANTOPRAZOLE 40 MG TABLET PO SCH (06:12)
[2023-03-15 06:58] LABS: Anisocytosis Slight; Basophils % (A) 1 %; Eosinophils # (A) 0.3 k/uL (0-0.7); Eosinophils % (A) 6 %; HCT 37.2 % (34.0-46.0); HGB 12.1 gm/dL (11.4-16.0); Lymphocytes # (A) 2.3 k/uL (1.0-4.8); Lymphocytes % (A) 44 %; MCH 32.6 pg (25.0-35.0); MCHC 32.4 g/dL (31.0-37.0); MCV 100.6 fL (80.0-100.0); Macrocytosis Slight; Mean Platelet Volume 8.9; Monocytes # (A) 0.3 k/uL (0-1.0); Monocytes % (A) 6 %; Neutrophils # (A) 2.3 k/uL (1.3-7.7); Neutrophils % (A) 42 %; Platelet Count 138 k/uL (150-450); RDW 16.3 % (11.5-15.5); WBC 5.4 k/uL (3.8-10.6)
[2023-03-15 07:11] LABS: ALT 149 U/L (4-34); AST 271 U/L (14-36); African American GFR (CKD) >90 (>60 ml/min/1.73 sqM); Albumin/Globulin Ratio 1.1; Alkaline Phosphatase 251 U/L (38-126); Anion Gap 4 mmol/L; Blood Urea Nitrogen <2 mg/dL (7-17); Calcium 8.3 mg/dL (8.4-10.2); Carbon Dioxide 31 mmol/L (22-30); Chloride 103 mmol/L (98-107); Globulin 2.8 g/dL; Glucose 101 mg/dL (74-99); Non-African American GFR(CKD) >90 (>60 ml/min/1.73 sqM); Potassium 3.7 mmol/L (3.5-5.1); Sodium 138 mmol/L (137-145); Total Bilirubin 1.6 mg/dL (0.2-1.3); Total Protein 5.8 g/dL (6.3-8.2)
[2023-03-15] MEDS: LACTOBACILLUS ACIDOPHILUS/PECT 1 EACH CAPSULE PO SCH (08:17)
[2023-03-15] MEDS: THIAMINE 100 MG TAB PO SCH (08:17)
[2023-03-15] MEDS: DULoxetine HCL 30 MG CAPSULE.DR PO SCH (08:17)
[2023-03-15] MEDS: MULTIVITAMINS, THERA 1 EACH TAB PO SCH (08:17)
[2023-03-15] MEDS: ACETAMINOPHEN TAB 325 MG TAB PO PRN (08:18)
--- NOTE | 2023-03-15 08:55 | P.PN ---
Subjective Progress Note Date: 03/15/23 Principal diagnosis: Liver cirrhosis This pleasant 42-year-old female who presented to the emergency department with multiple complaints including abdominal pain, nausea and vomiting, dizziness, confusion, anxiety, and shortness of breath. She has a past medical history including alcohol dependence and abuse, asthma, GERD, and previous bariatric surgery and hernia surgery. Multiple consultants have seen patient, however, gastroenterology was consulted for hepatitis. Patient was noted have elevated LFTs on admission. Patient states that she has been a heavy drinker for approximately 20 years. She has been off-and-on and has even been in rehab. She states a few weeks ago she was drinking as much as half a fifth a day. She states her last drink was this past . She denies any previous knowledge of liver disease or liver cirrhosis. Admitting labs WBC 5.1 hemoglobin 14, platelet count 183,010 are 1.0 total bilirubin 1.9 AST a 52 ALT 218 alkaline phosphatase 499 acute hepatitis panel nonreactive. Imaging Abdominal ultrasound that showed no acute process, but does report severe hepatic steatosis. CT abdomen and pelvis with IV contrast report severe hepatic steatosis, cholecystectomy, Anna-en-Y gastric bypass. No obstruction of the tube jejunostomy Chest CT angiogram no focal infiltrate, pleural effusion, or pneumothorax. No acute pulmonary embolism. Severe hepatic steatosis. Anna-en-Y gastric bypass. 03/14/2023 Patient seen and examined today as a follow-up for liver cirrhosis. Patient was resting comfortably, and took quite a bit to wake her up. However she states she has this pretty severe pain this morning. Patient is scheduled for upper and lower endoscopy today with general surgery. Otherwise no acute changes through the night. Liver studies pending. 03/15/2023 Patient seen and examined today as a follow-up. Yesterday she underwent EGD and colonoscopy with Dr. De La O. Upper endoscopy revealed gastritis. Colonoscopy nondiagnostic due to poor prep. Patient states she still has some abdominal pain. No nausea or vomiting at this time. Of liver enzymes remained elevated yesterday. Liver serologies pending. Johanna-Barnes virus negative. Objective - Vital Signs Vital signs: Vital Signs Temp 97.6 F 03/15/23 02:45 Pulse 93 03/15/23 02:45 Resp 13 03/15/23 02:45 BP 123/86 03/15/23 02:45 Pulse Ox 95 03/15/23 02:45 FiO2 Intake & Output 03/14/23 03/14/23 03/15/23 06:59 18:59 06:59 Intake Total 318 Balance 318 Intake: IV 200 Oral 118 Other: Voiding Method Toilet # Voids 2 1 5 - Exam General appearance: The patient is alert, oriented, appears in no acute distress. HET: Head is normocephalic and atraumatic. Conjunctiva pink. Sclera anicteric. Neck: Supple without lymphadenopathy. Abdomen: Soft, mild tenderness left lower quadran. No guarding or rigidity. Extremities: Normal skin color and turgor. No pedal edema Skin: No rashes, no jaundice Neurological: No focal deficits. Alert and oriented. - Labs CBC & Chem 7: 03/15/23 05:57 03/15/23 05:57 Labs: Abnormal Lab Results - Last 24 Hours (Table) 03/14/23 Range/Units 06:45 WBC 4.14 L (4.50-10.00) X 10*3/uL RBC 3.50 L (4.10-5.20) X 10*6/uL Hgb 11.1 L (12.0-15.0) d/dL Hct 35.5 L (37.2-46.3) % MCV 101.4 H (80.0-97.0) FL MCHC 31.3 L (32.0-37.0) d/dL RDW 15.5 H (11.5-14.5) % Assessment and Plan (1) Acute alcoholic hepatitis Narrative/Plan: patient with long-standing history of alcohol abuse approximately 20 years. Patient was drinking up to half a fifth a day. No prior knowledge of liver disease. However on admission patient did have significantly elevated LFTs especially alkaline phosphatase. Patient also had multiple imaging showing severe hepatic steatosis. Likely all related to acute alcoholic hepatitis however need to consider possible superimposed with medication-induced hepatitis. Patient recently started on Celexa about 4 weeks ago and took for about 3 weeks and stopped herself about 5 days ago. Discussed importance of alcohol abstinence with patient. Will order further liver serologies as well as CMV and EBV. Liver serologies currently pending. EBV negative. LFTs continued to remain quite elevated. Acute hepatitis, unclear etiology, likely underlying liver disease with possible medication induced component. Will need close outpatient follow-up next week, prescription given for repeat CMP prior to gastroenterology visit. Discussed with patient. Important for alcohol abstinence, avoid hepatotoxic medications. Current Visit: Yes Status: Acute Code(s): K70.10 - ALCOHOLIC HEPATITIS WITHOUT ASCITES SNOMED Code(s): 9148947 Plan: 1. Continue symptomatic and supportive care 2. Liver serologies, CMV, EBV ordered, however still pending. 3. Avoid hepatotoxic medications 4. Continue to hold Celexa 5. Alcohol abstinence 6. Monitor patient closely for withdrawal symptoms 7. Continue with recommendations from other consultants 8. Patient will need outpatient follow-up with gastroenterology in 1 week to further review of liver serologies. CMP order for outpatient labs in 3-4 days. Thank you for this consultation, patient is cleared by gastroenterology for discharge with follow-up next week. We will sign off at this time. Dr. Alis Nelson I agree with the dictator's note, documented as a scribe by Jocelyn Freire.
[2023-03-15 09:01] VITALS: BP 129/91; PULSE 68; RESP 18; TEMP 98.1
--- NOTE | 2023-03-15 13:26 | P.PN ---
Subjective Progress Note Date: 03/15/23 CHIEF COMPLAINT: GI bleed HISTORY OF PRESENT ILLNESS: The patient is a 42-year-old female who presented with abdominal pain including GI bleed. Upper and lower endoscopy were performed. No recurrent bleeding. She is being followed by gastroenterology team for hepatitis. ROS: No reports of nausea and vomiting. No fevers or chills. No new chest pain. No productive sputum PHYSICAL EXAM: VITAL SIGNS: Reviewed CONSTITUTIONAL: Well developed and in no acute distress. EYES: Conjuctivae without sclera icterus. Extraocular movements grossly intact. HEAD, EARS, NOSE, THROAT: Moist buccal mucosa. Head is atraumatic, normocephalic. Hears conversational speech. No nasal drainage. RESPIRATORY: Non-labored respirations and equal bilateral excursions. CARDIOVASCULAR: Palpable 2+ radial pulses. ABDOMEN: No peritonitis. MUSCULOSKELETAL: No gross deformity of the lower extremities noted. No clubbing. No cyanosis. SKIN: Good skin turgor. Well perfused. NEUROLOGIC: Cranial nerves II through XII grossly intact. No focal or lateralizing signs. PSYCH: Appropriate affect. Alert and oriented to person, place and time. CLINICAL LABS: Reviewed. LFTs moderately elevated. ASSESSMENT: 1. GI bleed with history of gastric bypass 2. Hepatitis PLAN: 1. Follow up as outpatient bariatric center in 1 week 2. Management with GI team for elevated liver enzymes Objective - Vital Signs Vital signs: Vital Signs Temp 98.1 F 03/15/23 07:00 Pulse 68 03/15/23 07:00 Resp 18 03/15/23 08:17 BP 129/91 03/15/23 07:00 Pulse Ox 95 03/15/23 07:00 FiO2 Intake & Output 03/14/23 03/15/23 03/15/23 18:59 06:59 18:59 Intake Total 318 118 Balance 318 118 Intake: IV 200 Oral 118 118 Other: Voiding Method Toilet Toilet # Voids 1 5 - Labs CBC & Chem 7: 03/15/23 05:57 03/15/23 05:57 Labs: Abnormal Lab Results - Last 24 Hours (Table) 03/15/23 03/15/23 Range/Units 05:57 05:57 RBC 3.70 L (3.80-5.40) m/uL MCV 100.6 H (80.0-100.0) fL RDW 16.3 H (11.5-15.5) % Plt Count 138 L (150-450) k/uL Carbon Dioxide 31 H (22-30) mmol/L BUN <2 L (7-17) mg/dL Glucose 101 H (74-99) mg/dL Calcium 8.3 L (8.4-10.2) mg/dL Total Bilirubin 1.6 H (0.2-1.3) mg/dL AST 271 H (14-36) U/L ALT 149 H (4-34) U/L Alkaline Phosphatase 251 H (38-126) U/L Total Protein 5.8 L (6.3-8.2) g/dL Albumin 3.0 L (3.5-5.0) g/dL
--- NOTE | 2023-03-15 20:16 | P.DS ---
Providers Date of admission: 03/11/23 23:21 Expected date of discharge: 03/15/23 Attending physician: Jesús Stockton Consults: 03/11/23 23:20 Consult Physician Routine Consulting Provider: Carlita De La O Consult Reason/Comments: known Do you want consulting provider notified?: Yes Consult Physician Routine Consulting Provider: Dennys Corona Consult Reason/Comments: anxiety Do you want consulting provider notified?: Already Contacted 03/12/23 12:22 Consult Physician Routine Consulting Provider: Ki Douglass Consult Reason/Comments: intermittent confusion/dizziness Do you want consulting provider notified?: Yes 03/12/23 12:25 Consult Physician Routine Consulting Provider: Xi Urrutia Consult Reason/Comments: SOB Do you want consulting provider notified?: Yes 03/12/23 16:01 Consult Physician Routine Consulting Provider: Celi Nelson Consult Reason/Comments: Hepatitis Do you want consulting provider notified?: Yes Primary care physician: Rolanda Ovalle [facility] Course: Chief Complaint: Multiple symptoms This is a 42-year-old patient, follows with Dr. Rolanda Ovalle. Patient presents with multiple symptoms. Patient has known gastric bypass surgery history for by Dr. Duran. Patient developed: November of this year. Pain is with long-standing drinking alcohol for many years. With some periods of short breaks. Patient states that when she eats she gets nauseated. And also throws a once a day. Also has anywhere from 3-4 bowel movements a day. The bowel movements smelled really bad. Oftentimes changing color. Patient also notices that she sometimes gets short of breath. With activity. Last Saturday is also been having chest pain. Other constant. No radiation. Worse with activity. Also complains of episodes of dizziness and sometimes forgetful and confused. She thinks she's been told she also has some long covered symptoms. Patient had not taken the COVID-19 vaccine. Patient is also to admmurali baeza for the same at [facility]. Patient also has some dark stools. Questionable blood in the stools. Does feel sleepy and tired. 03/13/2023. Patient seen by cardiology and pulmonary. No further inpatient testing required. 2-D echocardiogram unremarkable. Does not seem to any significant cardiac or pulmonary issues. Abdominal ultrasound showed hepatic steatosis. Patient is pending MRI and EEG. Patient's EEG". Postpone till tomorrow. Patient requesting workup for autoimmune disorder which is present the family. Patient follows with Dr. Sanchez outpatient for the same. Remains on clear liquid diet. Patient's last alcoholic intake was 4 days ago that included 3 drinks. Patient counseled against alcohol. 03/14/2023: Patient still having some abdominal pain. This afternoon patient underwent EGD. Found some bleeding in the pouch area. We'll try the patient on diet today repeat CBC in the morning. Remains stable. And discharged tomorrow. Repeat CMP in the morning. Colonoscopic: Grade 4 internal hemorrhoids. With recent inflammation. Moderate stool present. EGD: Active bleeding from gastritis from gastric pouch. 03/15/2023: Doing well. Diet discussed with the patient. Patient to follow-up with multiple consult is discussed in detail with the patient. Patient has for most of her symptoms are from acute alcoholic hepatitis and an long COVID if any symptoms are minimal. She is again reminded completely abstain from alcohol. Discussion and discharge planning more than 35 minutes Past medical history to include: Asthma, GERD, prostatitis, ulcer, hiatal hernia, long COVID. Anna-en-Y gastric bypass surgery. Anxiety. Social history: . . Was trying excessive alcohol up until about 4 months ago. No significant history of smoking. Rarely marijuana. Works in a store Physical examination: VITAL SIGNS: 98.1, 68, 18, 129/91, 95% room air GENERAL: comfortable EYES: [Pupils equal. Conjunctiva yellow l. HEENT: External appearance of nose and ears normal, oral cavity grossly normal. NECK: JVD not raised; masses not palpable. HEART: First and second heart sounds are normal; no edema. LUNGS: Respiratory rate normal; clear to auscultation. ABDOMEN: Soft, mild tenderness, liver spleen not palpable, no masses palpable. PSYCH: Alert and oriented x3; mood and affect tiredl. INVESTIGATIONS, reviewed in the clinical context: March 15: Count 5.4 hemoglobin 12.1 platelets 138 potassium 3.7 creatinine 0.58 AST 271 ALT 149 total bilirubin 1.6 March 14: White count 4.1 hemoglobin 11.1 platelets 154 2-D echocardiogram: Normal LV function. Abdominal ultrasound: Limited. Liver enlarged. Severe hepatic steatosis. Acute hepatitis panel: Negative March 13: Potassium 4 BUN less than 2 creatinine 0.56 total bilirubin 1.8 AST 545 ALT 183 alkaline phosphatase 316 White count 5.1 hemoglobin 14 platelets are 83 sodium 131 potassium 4 BUN 13 creatinine 0.84 Total bilirubin 1.9 AST 852 ALT 218 alkaline phosphatase 499 Troponin I 2 less than 0.012. CRP less than 0.5 TSH 3.4 EKG tracing personally reviewed by me-normal sinus rhythm. Rate 98 Chest x-ray film personally reviewed by me-some hyperinflation CT angiogram of the chest with IV contrast: Negative for PE. Severe hepatic steatosis. Anna-en-Y gastric bypass CT abdomen and pelvis: Severe hepatic steatosis. Cholecystectomy. Anna-en-Y gastric bypass. Assessment plan: -Acute GI bleed with dark stools. 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 History of Anna-en-Y gastric bypass surgery. Follows with Dr. Duran. -Acute gastritis and gastric pouch secondary to alcoholism Increase PPI to twice a day -Acute alcoholic hepatitis: Better Patient had a few drinks about 4 days prior to presentation -Alcoholic hepatitis Acute hepatitis panel-negative. Liver ultrasound showed severe steatosis some hepatomegaly. Follow with Dr. Alis Nleson outpatient -Patient does complain of intermittent shortness of breath. History of COVID in November of this year. Seen by Dr. Urrutia from pulmonary. No significant pulmonary issues. Follow- up outpatient. -Anterior chest wall pain. Some relation to activity. Troponin negative. 2-D echo unremarkable.. Seen by Dr. Dave.. No further testing. Follow-up outpatient -Intermittent episodes of confusion and dizziness. MRI brain with and without contrast. EEG. Neuro workup negative. -Major depressive disorder, mild. Anxiety disorder NOS Trazodone 150 mg daily at bedtime. Cymbalta 30 mg by mouth twice a day. Follow-up [facility]. -GERD PPI -Alcoholic liver disease -Full code Disposition: Home Plan - Discharge Summary New Discharge Prescriptions: New Thiamine [Vitamin B-1] 100 mg PO DAILY #30 tab traZODone HCL 150 mg PO HS 14 Days #14 tablet DULoxetine HCL [Cymbalta] 30 mg PO BID #60 cap Continue hydrOXYzine HCL [Atarax] 50 mg PO TID PRN PRN Reason: ITCHING/ANXIETY Multivitamins, Thera [Multivitamin (formulary)] 1 tab PO DAILY Ferrous Sulfate [Iron (65 MG Elemental)] 325 mg PO DAILY L.acidoph,Paracasei, B.lactis [Probiotic] 1 cap PO DAILY Changed Omeprazole [PriLOSEC] 40 mg PO BID #60 cap Discontinued Zinc Gluconate [Zinc] 50 mg PO DAILY Ergocalciferol [Vitamin D2 (1250 Mcg = 22438 Iu)] 1,250 mcg PO TU Discharge Medication List hydrOXYzine HCL [Atarax] 50 mg PO TID PRN 03/05/23 [History] Ferrous Sulfate [Iron (65 MG Elemental)] 325 mg PO DAILY 03/11/23 [History] L.acidoph,Paracasei, B.lactis [Probiotic] 1 cap PO DAILY 03/11/23 [History] Multivitamins, Thera [Multivitamin (formulary)] 1 tab PO DAILY 03/11/23 [History] DULoxetine HCL [Cymbalta] 30 mg PO BID #60 cap 03/14/23 [Rx] Omeprazole [PriLOSEC] 40 mg PO BID #60 cap 03/14/23 [Rx] Thiamine [Vitamin B-1] 100 mg PO DAILY #30 tab 03/14/23 [Rx] traZODone HCL 150 mg PO HS 14 Days #14 tablet 03/14/23 [Rx] Follow up Appointment(s)/Referral(s): Caro Dave MD [STAFF PHYSICIAN] - 1 Week (cardiology office will call to schedule appt with pt) Jess Pérez NPC [REFERRING] - 03/21/23 11:30 am (Gastroenterolgy, Dr. Nelson's office . Appointment made with Lyly) Celi Nelson MD [STAFF PHYSICIAN] - 03/21/23 11:30 am (Can make with [facility]. Appointment will be with SIXTO Richards) Rolanda Ovalle DO [Primary Care Provider] - [facility] [place] [place] [facility] - 03/20/23 Blessing Sanchez MD [STAFF PHYSICIAN] - 1 Week (autoimmune work up) Xi Urrutia MD [STAFF PHYSICIAN] - 1 Week Ambulatory/Diagnostic Orders: Comprehensive Metabolic Panel [LAB.AMB] Time Frame: 3 Days, Location: None Selected Patient Instructions/Handouts: Acute Nausea and Vomiting (DC) Activity/Diet/Wound Care/Special Instructions: dc if ok with dr duran Discharge/Stand Alone Forms: Who Do I Call?, Community Resources, Outpatient Counseling, PH Area PCPs Discharge Disposition: HOME SELF-CARE
== END 2023-03-15 13:25 | disposition home or self-care (01) ==
LOC: EC 17:36 → 6NMEDSUR 23:21
PROVIDERS: ADMIT Hospitalist; ATTEND Hospitalist
DX: K29.01 Acute gastritis with bleeding (principal); K64.0 First degree hemorrhoids; R53.1 Weakness; K70.10 Alcoholic hepatitis without ascites; F32.0 Major depressive disorder, single episode, mild; F41.9 Anxiety disorder, unspecified; J45.909 Unspecified asthma, uncomplicated; K21.9 Gastro-esophageal reflux disease without esophagitis; K76.0 Fatty (change of) liver, not elsewhere classified; F10.20 Alcohol dependence, uncomplicated; R07.89 Other chest pain; R00.2 Palpitations; R42 Dizziness and giddiness; R55 Syncope and collapse; F12.10 Cannabis abuse, uncomplicated; R41.0 Disorientation, unspecified; E66.3 Overweight; Z68.31 Body mass index [BMI] 31.0-31.9, adult; Z86.16 Personal history of COVID-19; Z86.010 Personal history of colon polyps; Z87.19 Personal history of other diseases of the digestive system; Z87.891 Personal history of nicotine dependence; Z90.49 Acquired absence of other specified parts of digestive tract; Z98.84 Bariatric surgery status; Z79.899 Other long term (current) drug therapy; Z88.1 Allergy status to other antibiotic agents
CPT/HCPCS: 96361 ×4; 96376 ×3; 96372; 96374; 96375; 99285; 36415; 94760; 95816; 93005; 93306; 86665; 80053 ×3; 80074; 84443; 82607; 82140; 82746; 83735; 84100; 84484 ×2; 85025 ×2; 85027; 85610; 85730; 86140; 81025; 83516; 80306; 80320; 71046; 76705; 71275; 74177; 70553; 45378; 43235; G0378 ×5; J2060 ×2; J3411; J3360; J2704; C9113 ×3; Q9967; A9585; J2001; 82103; 82105; 82390; 86038; 86645

== ENCOUNTER → 2023-03-18 | Outpatient (CLI) | payer BC ==
[2023-03-19 02:47] LABS: ALT 115 U/L (8-44); AST 149 U/L (13-35); Albumin 3.8 d/dL (3.8-4.9); Albumin/Globulin Ratio 1.65 Ratio (1.60-3.17); Alkaline Phosphatase 177 U/L (41-126); BUN/Creat Ratio 13.57 Ratio (12.00-20.00); Blood Urea Nitrogen 9.5 mg/dL (9.0-27.0); Calcium 9.4 mg/dL (8.7-10.3); Carbon Dioxide 26.4 mmol/L (21.6-31.8); Chloride 101 mmol/L (96-109); Globulin 2.3 d/dL (1.6-3.3); Glucose 90 mg/dL (70-110); Sodium 137 mmol/L (135-145); Total Bilirubin 0.7 mg/dL (0.3-1.2); Total Protein 6.1 d/dL (6.2-8.2)
== END | disposition home or self-care (01) ==
LOC: LABWHC1 15:44
PROVIDERS: ATTEND Nurse Practitioner Family
DX: K75.9 Inflammatory liver disease, unspecified (principal)
CPT/HCPCS: 36415; 80053

== ENCOUNTER → 2023-03-21 | Outpatient (CLI) | payer BC ==
[2023-03-21 20:06] LABS: Albumin 3.8 d/dL (3.8-4.9); Protein, Total 5.9 d/dL (6.2-8.2)
[2023-03-21 20:23] LABS: % Iron Saturation 32.65 (12.00-45.00); ALT 87 U/L (8-44); AST 88 U/L (13-35); Alkaline Phosphatase 130 U/L (41-126); BUN/Creat Ratio 14.14 Ratio (12.00-20.00); Blood Urea Nitrogen 9.9 mg/dL (9.0-27.0); C Reactive Protein <0.30 mg/dL (0.00-0.80); Calcium 9.4 mg/dL (8.7-10.3); Carbon Dioxide 26.9 mmol/L (21.6-31.8); Chloride 102 mmol/L (96-109); Glucose 95 mg/dL (70-110); Iron 127 UG/DL (50-170); Potassium 4.7 mmol/L (3.5-5.5); Sodium 138 mmol/L (135-145); Total Bilirubin 0.7 mg/dL (0.3-1.2); Total Iron Binding Capacity 389 UG/DL (228-460)
[2023-03-21 21:15] LABS: Basophils # (A) 0.07 X 10*3/uL (0.00-0.10); Eosinophils # (A) 0.09 X 10*3/uL (0.04-0.35); Eosinophils % (A) 1.3 %; Lymphocytes # (A) 1.61 X 10*3/uL (0.90-5.00); Lymphocytes % (A) 22.4 %; MCH 32.3 pg (27.0-32.0); MCHC 31.6 d/dL (32.0-37.0); MCV 102.2 FL (80.0-97.0); Mean Platelet Volume 10.7 FL (9.5-12.2); Monocytes % (A) 11.1 %; NRBC Per 100 WBC 0 X 10*3/uL (0.00-0.01); Neutrophils # (A) 4.58 X 10*3/uL (1.80-7.70); Neutrophils % (A) 63.5 %; Platelet Count 314 X 10*3/uL (140-440); RBC 3.72 X 10*6/uL (4.10-5.20); RDW 16.9 % (11.5-14.5)
[2023-03-21 21:24] LABS: Erythrocyte Sedimentation Rate 8 mm/Hr (0-20)
[2023-03-21 21:37] LABS: Gliadin AB IgA, Deaminated Negative (Negative); Gliadin AB IgA, Unit 2.5 U/mL; Gliadin AB IgG, Deaminated Negative (Negative); Gliadin AB IgG, Unit <0.4 U/mL
[2023-03-21 22:22] LABS: Ceruloplasmin 22.5 mg/dL (20.0-60.0)
[2023-03-22 15:27] LABS: Gamma Globulin 0.75 d/dL (0.70-1.50)
== END | disposition home or self-care (01) ==
LOC: LABWHC1 13:32
PROVIDERS: ATTEND Nurse Practitioner Family
DX: F10.988 Alcohol use, unspecified with other alcohol-induced disorder (principal); K52.9 Noninfective gastroenteritis and colitis, unspecified
CPT/HCPCS: 36415; 80053; 82103; 82140; 82390; 82728; 83516; 83540; 83550; 84165; 85025; 85652; 86038; 86140

== ENCOUNTER → 2023-03-27 | Outpatient (CLI) | payer BC ==
[2023-03-27 15:47] VITALS: BP 124/83; PULSE 78; TEMP 98.3; BMI 35.5
--- NOTE | 2023-03-27 15:55 | P.BASOAP ---
Subjective Progress Note Date: 03/27/23 Two week protein diet for liver. Needs appropriate colonoscopy for proper cleanse. She is vomiting blood and stools. She did not carafate. She is still having blood in stools. She has gastritis. REcommend repeat colonoscopy after. REcommnd US of the liver. Objective - Vital Signs Vital signs: Vital Signs Temp 98.3 F 03/27/23 15:41 Pulse 78 03/27/23 15:41 Resp BP 124/83 03/27/23 15:41 Pulse Ox FiO2 Intake & Output 03/26/23 03/27/23 03/27/23 18:59 06:59 18:59 Weight 99.79 kg Assessment/Plan Plan: Date: 03/27/23 Initial Weight: 120.746 kg Initial BMI: 43.0 Current Weight: 99.79 kg Current BMI: 35.5 Type of Surgery: Total Volume in Band: Previous Volume: Volume Removed: Volume Added: Band Size:
--- NOTE | 2023-03-27 16:10 | P.PN ---
Progress Note - Text Progress Note Date: 03/27/23 To whom it may concern: Chiquita Marcia is under my surgical care. She was present for her appointment today. Regards, Carlita De La O MD
== END ==
LOC: BARWHC3 15:31
PROVIDERS: ATTEND Surgery Plastic and Reconstructive Surgery
DX: E66.01 Morbid (severe) obesity due to excess calories (principal); Z68.35 Body mass index [BMI] 35.0-35.9, adult; Z88.1 Allergy status to other antibiotic agents
CPT/HCPCS: 99211

== ENCOUNTER → 2023-04-04 | Outpatient (CLI) | payer BC ==
[2023-04-04 19:46] LABS: ALT 33 U/L (8-44); AST 34 U/L (13-35); Albumin 4.1 d/dL (3.8-4.9); Albumin/Globulin Ratio 2.05 Ratio (1.60-3.17); Alkaline Phosphatase 69 U/L (41-126); BUN/Creat Ratio 11.71 Ratio (12.00-20.00); Blood Urea Nitrogen 8.2 mg/dL (9.0-27.0); Calcium 9.5 mg/dL (8.7-10.3); Carbon Dioxide 26.6 mmol/L (21.6-31.8); Chloride 104 mmol/L (96-109); Glucose 91 mg/dL (70-110); Potassium 4.3 mmol/L (3.5-5.5); Sodium 138 mmol/L (135-145); Total Bilirubin 0.4 mg/dL (0.3-1.2); Total Protein 6.1 d/dL (6.2-8.2)
[2023-04-04 22:59] LABS: Basophils # (A) 0.07 X 10*3/uL (0.00-0.10); Basophils % (A) 0.8 %; Eosinophils # (A) 0.29 X 10*3/uL (0.04-0.35); Eosinophils % (A) 3.3 %; HCT 38.8 % (37.2-46.3); HGB 12.5 d/dL (12.0-15.0); Lymphocytes # (A) 2.12 X 10*3/uL (0.90-5.00); Lymphocytes % (A) 23.8 %; MCH 32.9 pg (27.0-32.0); MCHC 32.2 d/dL (32.0-37.0); MCV 102.1 FL (80.0-97.0); Mean Platelet Volume 11.2 FL (9.5-12.2); Monocytes # (A) 0.79 X 10*3/uL (0.20-1.00); Monocytes % (A) 8.9 %; NRBC Per 100 WBC 0 X 10*3/uL (0.00-0.01); Neutrophils # (A) 5.59 X 10*3/uL (1.80-7.70); Neutrophils % (A) 62.8 %; Platelet Count 340 X 10*3/uL (140-440)
== END | disposition home or self-care (01) ==
LOC: LABWHC1 14:11
PROVIDERS: ATTEND Nurse Practitioner Family
DX: K70.9 Alcoholic liver disease, unspecified (principal); Z86.19 Personal history of other infectious and parasitic diseases
CPT/HCPCS: 36415; 80053; 85025; 87338

== ENCOUNTER 2023-04-23 07:56 | Day surgery (SDC) | payer BC ==
[2023-04-23 08:37] VITALS: TEMP 98.2
[2023-04-23] MEDS ORDERED: LACTATED RINGERS 1,000 ML IV ONE ×2 (08:40)
[2023-04-23] MEDS ORDERED: PROPOFOL 10 MG/ML 20 ML VIAL IV ONE (08:41)
--- NOTE | 2023-04-23 09:02 | P.PCN ---
Date of Procedure: 04/23/23 Procedure(s) Performed: Brief history: Patient is a pleasant 42-year-old white female scheduled for an elective upper endoscopy as well as colonoscopy as a part of evaluation of severe GERD for the last 2 years duration and chronic diarrhea. She has bowel movements anywhere from 6-8 a day which are loose to watery in consistency but no blood or mucus in the stool. Procedure performed: Esophagogastroduodenoscopy with biopsy Colonoscopy with biopsy Preoperative diagnosis: History of GERD Chronic diarrhea of 2 years duration Anesthesia: MAC Procedure: After informed consent was obtained from the patient was brought into the endoscopy unit and IV sedation was administered by anesthesia under continuous monitoring. Initially upper endoscopy was done. The Olympus GF 160 video endoscope was inserted inserted into the mouth and esophagus intubated without any difficulty and was gradually advanced into the stomach . There was evidence of gastric bypass surgery with Anna-en-Y anastomosis that appeared normal. The scope was advanced into the jejunum and 60 cm visualized and appeared normal. Biopsies were done from the jejunum. The scope was removed and the gastric pouch appeared entirely normal. Anastomosis was patent. The scope was then withdrawn into the esophagus. The GE junction was located at 40 cm to the incisors. It appeared regular with no erythema erosions or ulcerations. Mall hiatal hernia noted. Rest of the esophagus appeared normal. Patient tolerated the procedure well. At this time the patient continued to remain sedation. Initial digital rectal examination was normal. Olympus CF 160 video colonoscope was then inserted into the rectum and gradually advanced to the cecum without any difficulty. Careful examination was performed as the scope was gradually being withdrawn. The prep was excellent. The cecum, ascending colon, transverse colon, descending colon, sigmoid colon and rectum appeared normal. Random biopsies were done from the ascending and ascending colon to evaluate from endoscopic/collagenous colitis. Retroflexion was performed in the rectum and no lesions were noted. Patient tolerated the procedure well. Impression: 1. Upper endoscopy revealed evidence of gastric Anna-en-Y bypass surgery and small hiatal hernia 2. Colonoscopy was within normal limits with colorectal neoplasia Recommendations: Findings of this examination were discussed with the patient as well as her family. She was advised to follow with the biopsy results. She'll be seen in office in 2-3 weeks.
[2023-04-23 09:20] VITALS: BP 142/80; PULSE 64; RESP 20
== END 2023-04-23 09:55 | disposition home or self-care (01) ==
LOC: ORWHC2ENDO 07:56
PROVIDERS: ATTEND Internal Medicine Gastroenterology
DX: K25.9 Gastric ulcer, unspecified as acute or chronic, without hemorrhage or perforation (principal); K22.70 Barrett's esophagus without dysplasia; K44.9 Diaphragmatic hernia without obstruction or gangrene; K21.9 Gastro-esophageal reflux disease without esophagitis; J45.909 Unspecified asthma, uncomplicated; Z88.1 Allergy status to other antibiotic agents; Z79.51 Long term (current) use of inhaled steroids; Z79.899 Other long term (current) drug therapy; Z98.890 Other specified postprocedural states; Z98.84 Bariatric surgery status
CPT/HCPCS: 81025; 88305; 45380; 43239; J2704